=== PATIENT | female | born 1935 | race African-American/Black ===

== ENCOUNTER 2018-07-15 15:31 | Inpatient (IN) | payer MEDICARE, MEDICAID ==
[~2018-07-15] VITALS: Ht 162.6 cm; Wt 87.3 kg
[~2018-07-15 15:31] MED LIST: AMLO10TA8 PO; AMOX1TAB10 PO; ASPI-630 PO; CARV25TA2 PO; INSU100I13 SQ; LOSA-73 PO; METF10007 PO; METF500T16 PO; MULT-658 PO; POTA10TA12 PO; PRAV40TA2 PO; VALS1TAB22 PO
[2018-07-15] MEDS ORDERED: DEXTROSE 50% 25 GM / 50ML DISP.SYRIN. IV PRN (16:30)
[2018-07-15] MEDS ORDERED: ACETAMINOPHEN 325 MG TABLET. PO PRN ×2 (16:30)
[2018-07-15] MEDS ORDERED: HYDR12.575 PO (16:53)
[2018-07-15] MEDS ORDERED: INSU100V13 SQ (16:53)
[2018-07-15 17:00] VITALS: BP 169/81
[2018-07-15] MEDS: IV 1/2 NORMAL SALINE 1,000 ML IV SCH (17:30)
[2018-07-15] MEDS: INSULIN LISPRO 300 UNITS/3 ML INSULN.PEN. SQ SCH (17:36)
[2018-07-15] MEDS: CARVEDILOL 12.5 MG TABLET. PO SCH (17:37)
[2018-07-15 17:56] LABS: BASO % 0 % (0-3); EOS % 0 % (0-3); HEMATOCRIT 37.2 % (36.0-47.0); HEMOGLOBIN 12.4 g/dL (12.0-15.5); LYMPH % 10 % (24-48); MEAN CORPUSCULAR HEMOGLOBIN 32 pg (25-35); MEAN CORPUSCULAR HGB CONC 33 g/dL (31-37); MEAN CORPUSCULAR VOLUME 96 fL (79-100); MONO # 1.1 x10^3/uL (0.0-1.1); MONO % 11 % (0-9); NEUT # 7.8 x10^3uL (1.8-7.7); NEUT % 78 % (31-73); PLATELET COUNT 190 x10^3/uL (140-400); RED BLOOD COUNT 3.87 x10^6/uL (3.50-5.40)
[2018-07-15] MEDS: MAG HYDROX/ALUMINUM HYD/SIMETH 30 ML ORAL.SUSP PO PRN ×2 (18:02→20:40)
[2018-07-15 18:11] LABS: ALBUMIN 3.7 g/dL (3.4-5.0); ALBUMIN/GLOBULIN RATIO 0.9 (1.0-1.7); CALCIUM 9.8 mg/dL (8.5-10.1); CREATININE 1.5 mg/dL (0.6-1.0); GFR 39.9; MAGNESIUM 2.5 mg/dL (1.8-2.4); POTASSIUM 4.7 mmol/L (3.5-5.1); TOTAL BILIRUBIN 0.8 mg/dL (0.2-1.0); TOTAL PROTEIN 7.8 g/dL (6.4-8.2)
[2018-07-15] MEDS: ONDANSETRON PF 4 MG/2 ML VIAL. IV PRN (18:41)
[2018-07-15 19:00] VITALS: BP 167/78
[2018-07-15] MEDS: IV NORMAL SALINE 1000ML BAG 1,000 ML IV SCH (21:45)
[2018-07-15] MEDS: SUCRALFATE 1 GM TABLET. PO SCH (21:45)
--- NOTE | 2018-07-15 22:37 | EKG ---
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
[2018-07-15 23:00] VITALS: BP 159/75
--- NOTE | 2018-07-15 23:33 | NUR ---
Discussed with ICU nurse abnormal rhythm strip with some ST elevation. ECG ordered with possible abnormal results, Dr Wyatt was notified of results. 2L of oxygen place by RT.
[2018-07-16 03:00] VITALS: BP 148/73
[2018-07-16 06:50] VITALS: BP 135/71
[2018-07-16] MEDS ORDERED: PANTOPRAZOLE 40 MG TABLET.DR. PO SCH (07:30)
--- NOTE | 2018-07-16 07:40 | RAD ---
Chest, 2 views, 07/15/2018: HISTORY: Chest pain Comparison is made to a study from 06/17/2017. The heart size is within normal limits. There is calcific plaquing and tortuosity of the thoracic aorta. No pulmonary infiltrate is seen. There is no evidence of pleural fluid. Mild scattered degenerative changes are present in the spine. IMPRESSION: 1. Aortic atherosclerosis. 2. No acute cardiopulmonary abnormality is detected. Electronically signed by: Doug Melton MD (07/16/2018 7:37 AM) [facility]
[2018-07-16] MEDS: amLODIPine BESYLATE 5 MG TABLET PO SCH (08:51)
[2018-07-16] MEDS: ASPIRIN ENTERIC COATED 81 MG TABLET.DR. PO SCH (08:51)
[2018-07-16] MEDS: CARVEDILOL 12.5 MG TABLET. PO SCH ×2 (08:51→17:00)
[2018-07-16] MEDS: SUCRALFATE 1 GM TABLET. PO SCH ×4 (08:51→21:00)
[2018-07-16] MEDS: INSULIN LISPRO 300 UNITS/3 ML INSULN.PEN. SQ SCH ×3 (08:58→17:00)
[2018-07-16] MEDS: IV 1/2 NORMAL SALINE 1,000 ML IV SCH (08:59)
[2018-07-16 09:11] LABS: BASO % 0 % (0-3); EOS % 0 % (0-3); HEMATOCRIT 35.7 % (36.0-47.0); LYMPH # 0.9 x10^3/uL (1.0-4.8); LYMPH % 10 % (24-48); MEAN CORPUSCULAR HEMOGLOBIN 32 pg (25-35); MEAN CORPUSCULAR HGB CONC 34 g/dL (31-37); MEAN CORPUSCULAR VOLUME 95 fL (79-100); MONO # 1.4 x10^3/uL (0.0-1.1); MONO % 15 % (0-9); NEUT # 6.6 x10^3uL (1.8-7.7); NEUT % 74 % (31-73); PLATELET COUNT 187 x10^3/uL (140-400); RED BLOOD COUNT 3.74 x10^6/uL (3.50-5.40); RED CELL DISTRIBUTION WIDTH 13.1 % (11.5-14.5); WHITE BLOOD COUNT 8.9 x10^3/uL (4.0-11.0)
[2018-07-16 09:43] LABS: CALCIUM 9.2 mg/dL (8.5-10.1); CREATININE 1.6 mg/dL (0.6-1.0); GFR 37.1; POTASSIUM 4.1 mmol/L (3.5-5.1)
[2018-07-16 09:53] LABS: CHOLESTEROL/HDL RATIO 1.7; MAGNESIUM 2.7 mg/dL (1.8-2.4)
--- NOTE | 2018-07-16 10:27 | PDOC ---
Provider Note Provider Note history and physical dictated # [id number] DARIA MARTINEZ MD Jul 16, 2018 10:26
[2018-07-16] MEDS ORDERED: CONTRAST GIVEN. MC PRN (10:30)
[2018-07-16] MEDS ORDERED: IOHEXOL 240 MG/ML 50ML VIAL. PO ONE (10:30)
--- NOTE | 2018-07-16 10:43 | CARD ---
MR#: [id number] Date of Study: 07/16/2018 Ordering Physician: DARIA MARTINEZ, Referring Physician: DARIA MARTINEZ, Tech: Janice Meza APPROVED REPORT EXAM: Two-dimensional and M-mode echocardiogram with Doppler and color Doppler. Other Information Quality : AverageHR: 75bpm Technically limited study due to body habitus. INDICATION Chest Pain RISK FACTORS Hypertension Diabetes 2D DIMENSIONS RVDd2.9 (2.9-3.5cm)Left Atrium(2D)3.1 (1.6-4.0cm) IVSd1.2 (0.7-1.1cm)Aortic Root(2D)3.0 (2.0-3.7cm) LVDd4.3 (3.9-5.9cm)LVOT Diameter2.2 (1.8-2.4cm) PWd1.0 (0.7-1.1cm)LVDs2.1 (2.5-4.0cm) FS (%) 50.6 %SV68.0 ml LVEF(%)82.1 (>50%) Aortic Valve AoV Peak Ramon.139.3cm/sAoV VTI22.9cm AO Peak GR.7.8mmHgLVOT Peak Ramon.113.8cm/s LVOT VTI 18.26cmAO Mean GR.4mmHg GARCIA (VMAX)2.49xt8ROG (VTI)2.89cm2 Mitral Valve MV E Ponmlnvp24.4cm/sMV DECEL ZYWI425du MV A Ndvfuxjr24.4cm/sMV NLH174aq E/A Ratio0.5MVA (PHT)1.79cm2 TDI E/Lateral E'6.4E/Medial E'8.8 Pulmonary Valve PV Peak Ayctzjtj639.5cm/sPV Peak Grad.5mmHg Tricuspid Valve TR P. Ivuooewe399xg/sRAP SDFYZHFR7znSx TR Peak Gr.04vhBqWFWZ46cdJa Pulmonary Vein S1 Duanxbps41.8cm/sD2 Almdazcs59.6cm/s PVa [id number] LEFT VENTRICLE The left ventricle is normal size. There is borderline concentric left ventricular hypertrophy. The l eft ventricular systolic function is normal and the ejection fraction is within normal range. The Eje ction Fraction is 50-55%. Septal motion suggestive of prior cABG. Otherwise, grossly normal wall chapis on. Transmitral Doppler flow pattern is Grade I-abnormal relaxation pattern. RIGHT VENTRICLE The right ventricle is normal size. There is normal right ventricular wall thickness. The right ventr icular systolic function is normal. ATRIA The left atrium size is normal. The right atrium size is normal. The interatrial septum is intact wit h no evidence for an atrial septal defect or patent foramen ovale as noted on 2-D or Doppler imaging. AORTIC VALVE The aortic valve is normal in structure and function. Doppler and Color Flow revealed trace aortic re gurgitation. There is no significant aortic valvular stenosis. MITRAL VALVE The mitral valve is normal in structure and function. There is no evidence of mitral valve prolapse. There is no mitral valve stenosis. Doppler and Color Flow revealed no mitral valve regurgitation note d. TRICUSPID VALVE The tricuspid valve is normal in structure and function. Doppler and Color Flow revealed mild to mode rate tricuspid regurgitation with an estimated PAP of 57 mmHg. Doppler and Color Flow revealed modera te pulmonary hypertension. There is no tricuspid valve prolapse or vegetation. There is no tricuspid valve stenosis. PULMONIC VALVE The pulmonic valve is not well visualized. Doppler and Color Flow revealed trace pulmonic valvular re gurgitation. GREAT VESSELS The aortic root is normal in size. The IVC is normal in size and collapses >50% with inspiration. PERICARDIAL EFFUSION There is no evidence of significant pericardial effusion. Critical Notification Critical Value: No <Conclusion> Septal motion suggestive of prior cABG. Otherwise, grossly normal wall motion. Doppler and Color Flow revealed mild to moderate tricuspid regurgitation with an estimated PAP of 57 mmHg. Doppler and Color Flow revealed moderate pulmonary hypertension. The left ventricular systolic function is normal and the ejection fraction is within normal range. Th e Ejection Fraction is 50-55%. Signed by : Jorge Coombs, Electronically Approved : 07/16/2018 10:42:49
--- NOTE | 2018-07-16 10:52 | NUR ---
Per pt's daughter request, SW met with pt and daughter and provided with AD form. Pt currently sleeping. Daughter will notify SW when pt is able to complete form. Pt lives at home with daughter and has been independent with ADL's. Daughter reports pt sometimes uses a cane at home. PT ordered and is pending. SW will continue to follow pt.
[2018-07-16 11:00] VITALS: BP 129/63
--- NOTE | 2018-07-16 11:31 | HP ---
ADMIT DATE: 07/16/2018 LOCATION: She is in room 538. HISTORY OF PRESENT ILLNESS: The patient is an 83-year-old -Citizen Of [place] female with history of diabetes mellitus type 2, hypertension and hyperlipidemia, who was admitted to [facility] from my office on 07/15/2018 with the onset of a 4-day history of nausea and vomiting over the weekend. On Saturday, she vomited about 4 times and 3 times on Saturday. Her intake of food and fluid was quite poor. She was very weak and had some shortness of breath with ambulation. She had some retrosternal chest pain, which she attributed to vomiting, and she was drinking some water and Gatorade the day prior to admission, had some tightness in the chest and fatigue, as mentioned and was subsequently admitted to the hospital for further evaluation. Her EKG did not show any acute change. She was subsequently admitted to the hospital for further evaluation and treatment. ALLERGIES AND INTOLERANCES: None. MEDICATIONS PRIOR TO ADMISSION: Include amlodipine 10 mg every day, aspirin 81 mg every day, carvedilol 25 mg b.i.d., hydrochlorothiazide 12.5 mg every day, Levemir insulin 6 units at bedtime, losartan 100 mg every day, metformin 500 mg b.i.d. and pravastatin 40 mg every day. PAST MEDICAL HISTORY: Past history is significant for diabetes mellitus type 2, on insulin; hypertension; hyperlipidemia and osteoarthritis. She has had a cholecystectomy in the past. FAMILY HISTORY: Brother had diabetes mellitus and hypertension. Father had chronic kidney disease. Mother had diabetes mellitus, hypertension and hyperlipidemia. Sister had coronary artery disease. SOCIAL HISTORY: She does not drink alcohol nor does she smoke cigarettes. She uses a cane. REVIEW OF SYSTEMS: GENERAL: She denies any fever, chills or sweats in the last few days. CARDIOVASCULAR: She had some chest discomfort, as mentioned and some dyspnea on exertion. GASTROINTESTINAL: She had the nausea, vomiting and poor appetite. No diarrhea. ENDOCRINE: She has diabetes mellitus. SKIN: No rashes. NEUROLOGIC: Generalized weakness. The rest of systems reviewed are negative, except as stated in the history of present illness. PHYSICAL EXAMINATION: VITAL SIGNS: Temperature is 98.4 degrees, apical pulse regular at 73, respiratory rate 16, blood pressure 135/71 and oxygen saturation 95% on room air. HEENT: Eyes, gaze is conjugate. Extraocular muscles are intact. Mouth, tongue is midline. NECK: There is no cervical lymphadenopathy or thyroid enlargement. HEART: Reveals an S1, S2. There is no S3 or murmur. LUNGS: Clear. ABDOMEN: Soft, nontender, with no hepatosplenomegaly, masses or tenderness. EXTREMITIES: Lower extremities with trace edema. SKIN: No rashes. NEUROLOGICAL EXAMINATION: Shows she is coherent, with no focal weakness in the arms or legs. LABORATORY DATA: White count 10, hemoglobin 12.4, platelet count 190,000, polys 78 and lymphocytes 10. Today, the white count is 8.9, hemoglobin 12 with a platelet count of 187,000, polys 74 and lymphocytes 10. Yesterday the serum sodium was 131, potassium was 4.7, chloride 92, total CO2 was 30 with a BUN of 54, creatinine 1.5 and blood sugar 279. Magnesium 2.5. Liver function tests normal. Troponin level less than 0.017 and her albumin was 3.7. Today, the serum sodium is 133, potassium 4.1, chloride 92, total CO2 of 31 with BUN 61, creatinine 1.6 and blood sugar 249 and her magnesium was 2.7. CPK of 120. Troponin level was less than 0.017. Total cholesterol 130 with an LDL of 139 and HDL of 76. TSH was normal. She had a chest x-ray done, which showed no acute abnormality. An electrocardiogram actually was done today; the report is pending. The electrocardiogram showed normal sinus rhythm. She did have a Q-wave in lead 3, nonspecific ST-T wave changes. She had a high J-point at lead V6. ASSESSMENT: 1. Acute kidney injury secondary to dehydration. She had decreased fluid intake and was on hydrochlorothiazide, which was discontinued. 2. Nausea and vomiting. 3. Hypertension. 4. Diabetes mellitus type 2 with hyperglycemia. 5. Gastroesophageal reflux disease. 6. Hyperlipidemia. 7. Poor appetite and fatigue. 8. Chest pain. PLAN: Plan at this time is to consult Dr. Mccarty for Nephrology, Dr. Coombs for Cardiology and Dr. Valadez for GI. We will continue with the IV normal saline. Zofran has been ordered p.r.n. We will continue p.r.n. Mylanta, Carafate on schedule and Protonix on schedule. We got a CAT scan of the chest, abdomen and pelvis, all of this done without IV contrast. We will rule out hydronephrosis with that too and repeat the CBC and BMP tomorrow. Continue with IV fluids. Discontinue the hydrochlorothiazide and losartan and continue the carvedilol and amlodipine and will have low-dose Humalog insulin sliding scale. She has received physical therapy and SCDs for deep vein thrombosis prophylaxis. Echocardiogram has been ordered and is pending. DARIA MARTINEZ MD DR: GABRIELA/tosha JOB#: [id number] / [id number]
--- NOTE | 2018-07-16 11:32 | PDOC2 ---
GI CONSULT Reason For Consult: Nausea and vomiting and poor appetite HPI: HPI: Pleasant 83 y/o female - daughter Marimar provides much of history because pt's throat is sore. Ill since Saturday morning w/ vomiting - pt thinks possibly precipitated by eating vanilla ice cream the night before. Unable to tolerate PO Saturday or Saturday. Saturday was able to eat broth, crackers, green beans, Gatorade, and jello. Saturday still unable to eat normally (though did have some Glucerna) and daughter noticed she was very weak - she used her cane which she normally doesn't like to do. Went to Dr. Wyatt's office and was directly admitted. Vomited again last night after eating clear liquid tray and taking Mylanta - daughter notes that emesis included green beans from the day before. Her biggest concern currently is burning chest discomfort like acid reflux. Daughter also mentions really bad smelling burps. Has h/o occasional reflux (much less severe than current symptoms) - treated at home w/ sips of soda. No dysphagia. Typically no issues w/ n/v. Denies abd pain. No diarrhea or constipation - last stooled on Saturday. No hematemesis, hematochezia, or melena. Prior to this normal appetite and stable weight. Does not recall previous EGD. Thinks had a normal colonoscopy 5-10 years ago at [facility] (but not sure). S/p cholecystectomy for stones. No liver, pancreas, or PUD history. Took NSAIDs sometimes for arthritis pain in the past but was advised to stop due to worsening renal function. Now only takes Tylenol PRN. Says glucose normally runs around 90. Started on pantoprazole and Carafate here and plans for CT chest/abd/pelv. PMH: PMH: HTN, pneumonia, bronchitis, HLD, DM, CVA, CKD, OA, GERD, sinusitis cholecystectomy, cataract removal FH: Family History: CVA, DM, Hyperlipidemia, Other (daughter - GERD) Social History: Smoke: No ALCOHOL: none Drugs: None ROS: GEN: Denies fevers, chills, sweats HEENT: Denies blurred vision, sore throat CV: +burning chest pain RESP: Denies shortness of air, cough GI: Per HPI : Denies hematuria, dysuria ENDO: Denies weight changes NEURO: Denies confusion, dizziness MSK: +weakness SKIN: Denies jaundice, pruritus Vitals: Vitals: Vital Signs Date Time Temp Pulse Resp B/P (MAP) Pulse Ox O2 Delivery O2 Flow Rate FiO2 07/16/18 11:00 98.4 78 18 129/63 (85) 94 Room Air 98.4 Labs: Labs: Laboratory Tests Test 07/15/18 16:13 07/15/18 17:45 07/16/18 06:02 07/16/18 08:33 Glucose (Fingerstick) 251 mg/dL (70-99) 235 mg/dL (70-99) White Blood Count 10.0 x10^3/uL (4.0-11.0) 8.9 x10^3/uL (4.0-11.0) Red Blood Count 3.87 x10^6/uL (3.50-5.40) 3.74 x10^6/uL (3.50-5.40) Hemoglobin 12.4 g/dL (12.0-15.5) 12.0 g/dL (12.0-15.5) Hematocrit 37.2 % (36.0-47.0) 35.7 % (36.0-47.0) Mean Corpuscular Volume 96 fL (79-100) 95 fL (79-100) Mean Corpuscular Hemoglobin 32 pg (25-35) 32 pg (25-35) Mean Corpuscular Hemoglobin Concent 33 g/dL (31-37) 34 g/dL (31-37) Red Cell Distribution Width 13.0 % (11.5-14.5) 13.1 % (11.5-14.5) Platelet Count 190 x10^3/uL (140-400) 187 x10^3/uL (140-400) Neutrophils (%) (Auto) 78 % (31-73) 74 % (31-73) Lymphocytes (%) (Auto) 10 % (24-48) 10 % (24-48) Monocytes (%) (Auto) 11 % (0-9) 15 % (0-9) Eosinophils (%) (Auto) 0 % (0-3) 0 % (0-3) Basophils (%) (Auto) 0 % (0-3) 0 % (0-3) Neutrophils # (Auto) 7.8 x10^3uL (1.8-7.7) 6.6 x10^3uL (1.8-7.7) Lymphocytes # (Auto) 1.0 x10^3/uL (1.0-4.8) 0.9 x10^3/uL (1.0-4.8) Monocytes # (Auto) 1.1 x10^3/uL (0.0-1.1) 1.4 x10^3/uL (0.0-1.1) Eosinophils # (Auto) 0.0 x10^3/uL (0.0-0.7) 0.0 x10^3/uL (0.0-0.7) Basophils # (Auto) 0.0 x10^3/uL (0.0-0.2) 0.0 x10^3/uL (0.0-0.2) Sodium Level 131 mmol/L (136-145) 133 mmol/L (136-145) Potassium Level 4.7 mmol/L (3.5-5.1) 4.1 mmol/L (3.5-5.1) Chloride Level 92 mmol/L (98-107) 92 mmol/L (98-107) Carbon Dioxide Level 30 mmol/L (21-32) 31 mmol/L (21-32) Anion Gap 9 (6-14) 10 (6-14) Blood Urea Nitrogen 54 mg/dL (7-20) 61 mg/dL (7-20) Creatinine 1.5 mg/dL (0.6-1.0) 1.6 mg/dL (0.6-1.0) Estimated GFR (Cockcroft-Gault) 39.9 37.1 BUN/Creatinine Ratio 36 (6-20) Glucose Level 279 mg/dL (70-99) 249 mg/dL (70-99) Calcium Level 9.8 mg/dL (8.5-10.1) 9.2 mg/dL (8.5-10.1) Magnesium Level 2.5 mg/dL (1.8-2.4) 2.7 mg/dL (1.8-2.4) Total Bilirubin 0.8 mg/dL (0.2-1.0) Aspartate Amino Transf (AST/SGOT) 22 U/L (15-37) Alanine Aminotransferase (ALT/SGPT) 13 U/L (14-59) Alkaline Phosphatase 56 U/L (46-116) Creatine Kinase 156 U/L (26-192) 120 U/L (26-192) Troponin I Quantitative < 0.017 ng/mL (0.000-0.055) < 0.017 ng/mL (0.000-0.055) Total Protein 7.8 g/dL (6.4-8.2) Albumin 3.7 g/dL (3.4-5.0) Albumin/Globulin Ratio 0.9 (1.0-1.7) Thyroid Stimulating Hormone (TSH) 1.228 uIU/mL (0.358-3.74) Triglycerides Level 74 mg/dL (0-150) Cholesterol Level 130 mg/dL (0-200) LDL Cholesterol, Calculated 39 mg/dL (0-100) VLDL Cholesterol, Calculated 15 mg/dL (0-40) Non-HDL Cholesterol Calculated 54 mg/dL (0-129) HDL Cholesterol 76 mg/dL (40-60) Cholesterol/HDL Ratio 1.7 Test 07/16/18 10:54 Glucose (Fingerstick) 204 mg/dL (70-99) Allergies: Coded Allergies: No Known Drug Allergies (Unverified , 06/17/17) Medications: Current Medications Medications (Trade) Dose Ordered Sig/Omid Route PRN Reason Start Time Stop Time Status Last Admin Dose Admin Insulin Human Lispro (HumaLOG) 0-5 UNITS TIDWMEALS SQ 07/15/18 17:30 07/16/18 08:58 Ondansetron HCl (Zofran) 4 mg PRN Q6HRS PRN IV NAUSEA/VOMITING 07/15/18 16:30 07/15/18 18:41 Aspirin (Ecotrin) 81 mg DAILYWBKFT PO 07/16/18 08:00 07/16/18 08:51 Carvedilol (Coreg) 25 mg BIDWMEALS PO 07/15/18 17:30 07/16/18 08:51 Amlodipine Besylate (Norvasc) 5 mg DAILY PO 07/16/18 09:00 07/16/18 08:51 Al Hydroxide/Mg Hydroxide (Mylanta Plus Xs) 30 ml PRN Q2HR PRN PO HEARTBURN / GAS 07/15/18 16:30 07/15/18 20:40 Pantoprazole Sodium (Protonix) 40 mg DAILYAC PO 07/16/18 07:30 07/16/18 08:51 Sucralfate (Carafate) 1 gm TIDWMEALHC PO 07/15/18 22:00 07/16/18 08:51 Sodium Chloride 1,000 ml @ 75 mls/hr [id number] IV 07/15/18 21:45 07/15/18 21:45 Iohexol (Omnipaque 240 Mg/ml) 30 ml 1X ONCE PO 07/16/18 10:30 07/16/18 10:31 DC 07/16/18 10:30 Imaging: Imaging: CXR IMPRESSION: 1. Aortic atherosclerosis. 2. No acute cardiopulmonary abnormality is detected. Echocardiogram <Conclusion> Septal motion suggestive of prior cABG. Otherwise, grossly normal wall motion. Doppler and Color Flow revealed mild to moderate tricuspid regurgitation with an estimated PAP of 57 mmHg. Doppler and Color Flow revealed moderate pulmonary hypertension. The left ventricular systolic function is normal and the ejection fraction is within normal range. The Ejection Fraction is 50-55%. PE: GEN: NAD HEENT: Atraumatic, PERRL LUNGS: CTAB HEART: RRR ABD: NABS, S/ND/NT EXTREMITY: No edema SKIN: No rashes, no jaundice NEURO/PSYCH: A & O 3 A/P: A/P: N/v, atypical chest pain/reflux MOI/CKD, DM CRC screen - reports normal colonoscopy in the past S/p cholecystectomy -- ?infectious w/ underlying GERD - element of gastroparesis also possible Agree w/ PPI. Await CT. DAMON EATON Jul 16, 2018 11:31
[2018-07-16] MEDS: MAG HYDROX/ALUMINUM HYD/SIMETH 30 ML ORAL.SUSP PO PRN (11:42)
[2018-07-16] MEDS: ONDANSETRON PF 4 MG/2 ML VIAL. IV PRN (11:43)
[2018-07-16] MEDS: IV NORMAL SALINE 1000ML BAG 1,000 ML IV SCH (11:45)
--- NOTE | 2018-07-16 12:01 | PDOC2 ---
BRODERICK RENDON [employer] 07/16/18 1201: CARDIAC CONSULT DATE OF CONSULT Date of Consult DATE: 07/16/18 TIME: 11:53 REASON FOR CONSULT Reason for Consult: Chest pain REFERRING PHYSICIAN Referring Physician: Dr. Wyatt SOURCE Source: Chart review, Patient HISTORY OF PRESENT ILLNESS HISTORY OF PRESENT ILLNESS This is an 83 yo female who presented as a direct admit from Dr. Wyatt's office secondary to a four-day history of nausea and vomiting. Was finally able to keep food down on Saturday afternoon, but continue to not feel well overall with ongoing belching. Has been constipated since Saturday. Daughter reports that anytime she eats or drinks anything, she will have tightness in her central chest follow by belching. No associated SOA, palpitations, dizziness, diaphoresis, syncope, orthopnea, or LE edema. Due to chest tightness, cardiology consult was obtained. Had additional emesis last night follow clear liquid dinner. CTR abdomen/pelvis notable for partial distal small bowel obstruction and diverticulosis. PAST MEDICAL HISTORY Past Medical History Cardiovascular: HTN, Hyperlipidemia Pulmonary: no pertinent hx CENTRAL NERVOUS SYSTEM: Other (No pertinent history) GI: No pertinent hx Heme/Onc: No pertinent hx Hepatobiliary: No pertinent hx, Cholelithiasis Psych: No pertinent hx Musculoskeletal: Osteoarthritis Rheumatologic: No pertinent hx Infectious disease: No pertinent hx ENT: No pertinent hx Renal/: No pertinent hx Endocrine: Diabetes (2) Dermatology: No pertinent hx PAST SURGICAL HISTORY Past Surgical History Cholecystectomy FAMILY HISTORY Family History: Diabetes, Heart Disease, High Cholestrol, Stroke SOCIAL HISTORY Social History Smoke: No ALCOHOL: none Drugs: None Lives: with Family (dtr) CURRENT MEDICATIONS CURRENT MEDICATIONS Current Medications Medications (Trade) Dose Ordered Sig/Omid Route PRN Reason Start Time Stop Time Status Last Admin Dose Admin Insulin Human Lispro (HumaLOG) 0-5 UNITS TIDWMEALS SQ 07/15/18 17:30 07/16/18 08:58 Ondansetron HCl (Zofran) 4 mg PRN Q6HRS PRN IV NAUSEA/VOMITING 07/15/18 16:30 07/16/18 11:43 Aspirin (Ecotrin) 81 mg DAILYWBKFT PO 07/16/18 08:00 07/16/18 08:51 Carvedilol (Coreg) 25 mg BIDWMEALS PO 07/15/18 17:30 07/16/18 08:51 Amlodipine Besylate (Norvasc) 5 mg DAILY PO 07/16/18 09:00 07/16/18 08:51 Al Hydroxide/Mg Hydroxide (Mylanta Plus Xs) 30 ml PRN Q2HR PRN PO HEARTBURN / GAS 07/15/18 16:30 07/16/18 11:42 Pantoprazole Sodium (Protonix) 40 mg DAILYAC PO 07/16/18 07:30 07/16/18 08:51 Sucralfate (Carafate) 1 gm TIDWMEALHC PO 07/15/18 22:00 07/16/18 08:51 Sodium Chloride 1,000 ml @ 75 mls/hr [id number] IV 07/15/18 21:45 07/16/18 11:45 Iohexol (Omnipaque 240 Mg/ml) 30 ml 1X ONCE PO 07/16/18 10:30 07/16/18 10:31 DC 07/16/18 10:30 ALLERGIES ALLERGIES: Coded Allergies: No Known Drug Allergies (Unverified , 06/17/17) ROS Review of System 14 point ROS conducted with pertinent positives noted above in HPI. PHYSICAL EXAM PHYSICAL EXAM General: Alert, Oriented X3, Cooperative, No acute distress HEENT: Atraumatic, Mucous membr. moist/pink Lungs: Clear to auscultation, Normal air movement Heart: Regular rate (SR, no rhytym ectopies overnight), Normal S1, Normal S2, Other (2/6 systolic murmur to PASCUAL border) Abdomen: Soft, No tenderness Skin: No breakdown, Other (right facial contusion) Neuro: Normal speech, Sensation intact Psych/Mental Status: Mental status NL, Mood NL MUSCULOSKELETAL: Osteoarthritic changes both hands VITALS VITALS Vital Signs Date Time Temp Pulse Resp B/P (MAP) Pulse Ox O2 Delivery O2 Flow Rate FiO2 07/16/18 11:00 98.4 78 18 129/63 (85) 94 Room Air 98.4 LABS Lab: Laboratory Tests Test 07/15/18 16:13 07/15/18 17:45 07/16/18 06:02 07/16/18 08:33 Glucose (Fingerstick) 251 mg/dL (70-99) 235 mg/dL (70-99) White Blood Count 10.0 x10^3/uL (4.0-11.0) 8.9 x10^3/uL (4.0-11.0) Red Blood Count 3.87 x10^6/uL (3.50-5.40) 3.74 x10^6/uL (3.50-5.40) Hemoglobin 12.4 g/dL (12.0-15.5) 12.0 g/dL (12.0-15.5) Hematocrit 37.2 % (36.0-47.0) 35.7 % (36.0-47.0) Mean Corpuscular Volume 96 fL (79-100) 95 fL (79-100) Mean Corpuscular Hemoglobin 32 pg (25-35) 32 pg (25-35) Mean Corpuscular Hemoglobin Concent 33 g/dL (31-37) 34 g/dL (31-37) Red Cell Distribution Width 13.0 % (11.5-14.5) 13.1 % (11.5-14.5) Platelet Count 190 x10^3/uL (140-400) 187 x10^3/uL (140-400) Neutrophils (%) (Auto) 78 % (31-73) 74 % (31-73) Lymphocytes (%) (Auto) 10 % (24-48) 10 % (24-48) Monocytes (%) (Auto) 11 % (0-9) 15 % (0-9) Eosinophils (%) (Auto) 0 % (0-3) 0 % (0-3) Basophils (%) (Auto) 0 % (0-3) 0 % (0-3) Neutrophils # (Auto) 7.8 x10^3uL (1.8-7.7) 6.6 x10^3uL (1.8-7.7) Lymphocytes # (Auto) 1.0 x10^3/uL (1.0-4.8) 0.9 x10^3/uL (1.0-4.8) Monocytes # (Auto) 1.1 x10^3/uL (0.0-1.1) 1.4 x10^3/uL (0.0-1.1) Eosinophils # (Auto) 0.0 x10^3/uL (0.0-0.7) 0.0 x10^3/uL (0.0-0.7) Basophils # (Auto) 0.0 x10^3/uL (0.0-0.2) 0.0 x10^3/uL (0.0-0.2) Sodium Level 131 mmol/L (136-145) 133 mmol/L (136-145) Potassium Level 4.7 mmol/L (3.5-5.1) 4.1 mmol/L (3.5-5.1) Chloride Level 92 mmol/L (98-107) 92 mmol/L (98-107) Carbon Dioxide Level 30 mmol/L (21-32) 31 mmol/L (21-32) Anion Gap 9 (6-14) 10 (6-14) Blood Urea Nitrogen 54 mg/dL (7-20) 61 mg/dL (7-20) Creatinine 1.5 mg/dL (0.6-1.0) 1.6 mg/dL (0.6-1.0) Estimated GFR (Cockcroft-Gault) 39.9 37.1 BUN/Creatinine Ratio 36 (6-20) Glucose Level 279 mg/dL (70-99) 249 mg/dL (70-99) Calcium Level 9.8 mg/dL (8.5-10.1) 9.2 mg/dL (8.5-10.1) Magnesium Level 2.5 mg/dL (1.8-2.4) 2.7 mg/dL (1.8-2.4) Total Bilirubin 0.8 mg/dL (0.2-1.0) Aspartate Amino Transf (AST/SGOT) 22 U/L (15-37) Alanine Aminotransferase (ALT/SGPT) 13 U/L (14-59) Alkaline Phosphatase 56 U/L (46-116) Creatine Kinase 156 U/L (26-192) 120 U/L (26-192) Troponin I Quantitative < 0.017 ng/mL (0.000-0.055) < 0.017 ng/mL (0.000-0.055) Total Protein 7.8 g/dL (6.4-8.2) Albumin 3.7 g/dL (3.4-5.0) Albumin/Globulin Ratio 0.9 (1.0-1.7) Thyroid Stimulating Hormone (TSH) 1.228 uIU/mL (0.358-3.74) Triglycerides Level 74 mg/dL (0-150) Cholesterol Level 130 mg/dL (0-200) LDL Cholesterol, Calculated 39 mg/dL (0-100) VLDL Cholesterol, Calculated 15 mg/dL (0-40) Non-HDL Cholesterol Calculated 54 mg/dL (0-129) HDL Cholesterol 76 mg/dL (40-60) Cholesterol/HDL Ratio 1.7 Test 07/16/18 10:54 Glucose (Fingerstick) 204 mg/dL (70-99) ECHOCARDIOGRAM ECHOCARDIOGRAM <Conclusion> The left ventricle is normal size. Left ventricular systolic function is normal. The left ventricle ejection fraction is 60-65%. There is mild septal hypertrophy. There is no significant aortic valvular stenosis. Doppler and Color Flow revealed no significant aortic regurgitation. Doppler and Color-flow revealed trace to mild mitral regurgitation. Doppler and Color Flow revealed mild tricuspid regurgitation. The PASP is 47 mmHg. DATE: 06/18/17 1648 ASSESSMENT/PLAN ASSESSMENT/PLAN 1. Persistent nausea/vomiting. CT notable for partial small bowel obstruction 2. Chest pain, atypical; trop negative x2- AMI ruled out. Most probably GI in etiology 3. MOI 4. CAD; coronary artery calcifications noted on CT 5. Hypertension; controlled 6. Hyperlipidemia; lipids on goal 7. Diabetes, II Recommendations IVFs Obtain echo to assess LV systolic function Continue BB, ASA Supportive care Follow GI recs LAUREEN COLMENARES MD 07/16/18 1806: CARDIAC CONSULT ASSESSMENT/PLAN ASSESSMENT/PLAN Pt. seen and examined. 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 EKG unremarkable. Echo with moderate pulm HTN Supportive care. Consider outpt ischemic eval after acute GI issues resolved. Thanks BRODERICK RENDON APRN Jul 16, 2018 12:01 LAUREEN COLMENARES MD Jul 16, 2018 18:06
--- NOTE | 2018-07-16 12:55 | RAD ---
CT of the chest, abdomen and pelvis without contrast, 07/16/2018: HISTORY: Chest pain, weight loss Multidetector CT imaging was performed without IV contrast as requested. Oral contrast material was given for GI tract opacification. There is moderate calcific plaquing of the thoracic aorta without evidence of aneurysm. Scattered coronary artery calcifications are present. The heart is at the upper limits of normal in size. No mediastinal adenopathy is seen. The esophagus is mildly dilated and contains residual oral contrast material. This is likely related to gastric distention. No pulmonary mass or significant consolidation is seen. There is only minimal streaky atelectasis or scarring in the lung bases. There is a trace amount of right-sided pleural fluid. The gallbladder is surgically absent. The unopacified liver shows no abnormality. No pancreatic abnormality is seen. The spleen is of normal size. There is mild bilateral renal cortical scarring. A small parenchymal calcification is noted in the left kidney. The renal collecting systems are not dilated. No adrenal abnormality is detected. Aortoiliac calcific plaquing is present without evidence of aneurysm. No abdominal or pelvic adenopathy is evident. The uterus is is within normal limits in size. Colonic diverticulosis is present, most extensive in the sigmoid region. No paracolonic inflammatory process is seen. The colon is not dilated. The stomach is distended. There is mild distention of the duodenum as well as mid and distal small bowel loops. Loops of nondistended distal ileum are visible. The findings suggest partial distal small bowel obstruction. A precise transition zone is not identified, however, it probably lies in the pelvis. No free fluid or free air is evident in the abdomen or pelvis. Moderate scattered degenerative changes are present in the spine, most severe at L2-3 and L3-4. IMPRESSION: 1. Partial distal small bowel obstruction. 2. Moderate colonic diverticulosis. 3. Calcific plaquing of the aorta and coronary arteries. 4. Trace right pleural effusion. 5. Additional chronic findings as described above. PQRS Compliance Statement: One or more of the following individualized dose reduction techniques were utilized for this examination: 1. Automated exposure control 2. Adjustment of the mA and/or kV according to patient size 3. Use of iterative reconstruction technique Electronically signed by: Doug Melton MD (07/16/2018 12:52 PM) [facility]
[2018-07-16 14:41] VITALS: BP 132/60
--- NOTE | 2018-07-16 15:02 | PDOC2 ---
CONSULT Date of Consult Date of Consult DATE: 07/16/18 TIME: 14:56 Reason for Consult Reason for Consult: MOI History of Present Illness Reason for Visit: THIS IS AN 83 YR OLD WITH CKD STAGE 3 WITH CR IN THE 1.3 RANGE FROM LAST YEAR. SHE WENT TO DR MARTINEZ'S OFFICE AND WAS NOTED TO HAVE N/V AND ESSENTIALLY NO PO INTAKE SINCE SATURDAY. SHE ALSO C/O CHEST PRESSURE. SHE IS UNDERGOING CARDIOLOGY AND GI EVALUATION AT THIS TIME. NO REPORTED DIARRHEA AND SHE HAS BEEN FEELING POORLY AND WEAK. NO HX OF ANY OTHER HX. CKD DUE TO HTN AND DM II HX. HAS BEEN ON A THIAZIDE THAT SHE HAS BEEN TAKING Past Medical History Cardiovascular: HTN, Hyperlipidemia Pulmonary: Other CENTRAL NERVOUS SYSTEM: Other GI: No pertinent hx Heme/Onc: No pertinent hx Hepatobiliary: No pertinent hx, Cholelithiasis Psych: No pertinent hx Musculoskeletal: Osteoarthritis Rheumatologic: No pertinent hx Infectious disease: No pertinent hx Renal/: Chronic renal insuff Endocrine: Diabetes Past Surgical History Past Surgical History: Cholecystectomy Family History Family History: Diabetes, Heart Disease, High Cholestrol, Stroke Social History No ALCOHOL: none Drugs: None Lives: with Family Current Medications Current Medications Current Medications Sodium Chloride 1,000 ml @ 60 mls/hr [id number] IV ; Start 07/15/18 at 17:30; Stop 07/16/18 at 10:16; Status DC Insulin Human Lispro (HumaLOG) 0-5 UNITS TIDWMEALS SQ Last administered on 07/16at 12:20; Start 07/15/18 at 17:30 Dextrose (Dextrose 50%-Water Syringe) 12.5 gm PRN Q15MIN PRN IV SEE COMMENTS; Start 07/15/18 at 16:30 Ondansetron HCl (Zofran) 4 mg PRN Q6HRS PRN IV NAUSEA/VOMITING Last administered on 07/16/18at 11:43; Start 07/15/18 at 16:30 Acetaminophen (Tylenol) 325 mg PRN Q4HRS PRN PO MILD PAIN / TEMP; Start at 16:30 Acetaminophen (Tylenol) 650 mg PRN Q4HRS PRN PO MILD PAIN/TEMP, 2ND CHOICE; Start 07/15/18 at 16:30 Aspirin (Ecotrin) 81 mg DAILYWBKFT PO Last administered on 07/16/18 08:51; Start 07/16/18 at 08:00 Carvedilol (Coreg) 25 mg BIDWMEALS PO Last administered on 07/16/18 08:51; Start 07/15/18 at 17:30 Amlodipine Besylate (Norvasc) 5 mg DAILY PO Last administered on 07/16/18 08: 51; Start 07/16/18 at 09:00 Al Hydroxide/Mg Hydroxide (Mylanta Plus Xs) 30 ml PRN Q2HR PRN PO HEARTBURN / GAS Last administered on 07/16/18 11:42; Start 07/15/18 at 16:30 Pantoprazole Sodium (Protonix) 40 mg DAILYAC PO Last administered on 07/16/18 08:51; Start 07/16/18 at 07:30; Stop 07/16/18 at 13:18; Status DC Sucralfate (Carafate) 1 gm TIDWMEALHC PO Last administered on 07/16/18 12:17; Start 07/15/18 at 22:00 Sodium Chloride 1,000 ml @ 75 mls/hr [id number] IV Last administered on 11:45; Start 07/15/18 at 21:45 Iohexol (Omnipaque 240 Mg/ml) 30 ml 1X ONCE PO Last administered on 07/16/18 10:30; Start 07/16/18 at 10:30; Stop 07/16/18 at 10:31; Status DC Info (CONTRAST GIVEN -- Rx MONITORING) 1 each PRN DAILY PRN MC SEE COMMENTS; Start 07/16/18 at 10:30; Stop 07/18/18 at 10:29 Pantoprazole Sodium (PROTONIX VIAL for IV PUSH) 40 mg 1X ONCE IVP ; Start 07/17 at 07:30; Stop 07/17/18 at 07:30; Status DC Pantoprazole Sodium (PROTONIX VIAL for IV PUSH) 40 mg DAILYAC IVP ; Start at 07:30 Active Scripts Active Pravastatin Sodium 40 Mg Tablet 1 Tab PO QHS 30 Days Cozaar (Losartan Potassium) 50 Mg Tablet 100 Mg PO DAILY 30 Days Klor-Con 10 (Potassium Chloride) 10 Meq Tablet.er 10 Meq PO DAILYWBKFT 30 Days Reported Hydrochlorothiazide Capsule (Hydrochlorothiazide) 12.5 Mg Capsule 12.5 Mg PO DAILY Levemir (Insulin Detemir) 100 Unit/1 Ml Vial 6 Unit SQ HS Centrum Silver Tablet (Multivits-Min/Fa/Lycopene/Lut) 1 Each Tablet 1 Each PO DAILY Aspirin 81 Mg Tab.chew 1 Tab PO DAILY Metformin Hcl 500 Mg Tablet 500 Mg PO HS Metformin Hcl 1,000 Mg Tablet 1,000 Mg PO DAILYWBKFT Carvedilol 25 Mg Tablet 25 Mg PO BIDWMEALS Allergies Allergies: Coded Allergies: No Known Drug Allergies (Unverified , 06/17/17) ROS Review of System CONFUSED AND MOST HX FROM DAUGHTER AND CHART Physical Exam General: Alert, Cooperative, No acute distress HEENT: Atraumatic, PERRLA, EOMI, Other (DRY MUCOSA) Lungs: Clear to auscultation Heart: Normal S1, Normal S2, Other (MR) Abdomen: Normal bowel sounds, Soft, No tenderness Extremities: No clubbing, No cyanosis Skin: No rashes, No breakdown Neuro: Other (NO ASYMMETRY) Psych/Mental Status: Other (CONFUSED AFFECT) MUSCULOSKELETAL: No joint tenderness, No swelling, Other (DIFFUSE ATROPHY) Vitals VITALS Vital Signs Date Time Temp Pulse Resp B/P (MAP) Pulse Ox O2 Delivery O2 Flow Rate FiO2 07/16/18 14:41 98.2 75 18 132/60 (84) 95 Room Air 98.2 Labs Labs Laboratory Tests Test 07/15/18 16:13 07/15/18 17:45 07/16/18 06:02 07/16/18 08:33 Glucose (Fingerstick) 251 mg/dL (70-99) 235 mg/dL (70-99) White Blood Count 10.0 x10^3/uL (4.0-11.0) 8.9 x10^3/uL (4.0-11.0) Red Blood Count 3.87 x10^6/uL (3.50-5.40) 3.74 x10^6/uL (3.50-5.40) Hemoglobin 12.4 g/dL (12.0-15.5) 12.0 g/dL (12.0-15.5) Hematocrit 37.2 % (36.0-47.0) 35.7 % (36.0-47.0) Mean Corpuscular Volume 96 fL (79-100) 95 fL (79-100) Mean Corpuscular Hemoglobin 32 pg (25-35) 32 pg (25-35) Mean Corpuscular Hemoglobin Concent 33 g/dL (31-37) 34 g/dL (31-37) Red Cell Distribution Width 13.0 % (11.5-14.5) 13.1 % (11.5-14.5) Platelet Count 190 x10^3/uL (140-400) 187 x10^3/uL (140-400) Neutrophils (%) (Auto) 78 % (31-73) 74 % (31-73) Lymphocytes (%) (Auto) 10 % (24-48) 10 % (24-48) Monocytes (%) (Auto) 11 % (0-9) 15 % (0-9) Eosinophils (%) (Auto) 0 % (0-3) 0 % (0-3) Basophils (%) (Auto) 0 % (0-3) 0 % (0-3) Neutrophils # (Auto) 7.8 x10^3uL (1.8-7.7) 6.6 x10^3uL (1.8-7.7) Lymphocytes # (Auto) 1.0 x10^3/uL (1.0-4.8) 0.9 x10^3/uL (1.0-4.8) Monocytes # (Auto) 1.1 x10^3/uL (0.0-1.1) 1.4 x10^3/uL (0.0-1.1) Eosinophils # (Auto) 0.0 x10^3/uL (0.0-0.7) 0.0 x10^3/uL (0.0-0.7) Basophils # (Auto) 0.0 x10^3/uL (0.0-0.2) 0.0 x10^3/uL (0.0-0.2) Sodium Level 131 mmol/L (136-145) 133 mmol/L (136-145) Potassium Level 4.7 mmol/L (3.5-5.1) 4.1 mmol/L (3.5-5.1) Chloride Level 92 mmol/L (98-107) 92 mmol/L (98-107) Carbon Dioxide Level 30 mmol/L (21-32) 31 mmol/L (21-32) Anion Gap 9 (6-14) 10 (6-14) Blood Urea Nitrogen 54 mg/dL (7-20) 61 mg/dL (7-20) Creatinine 1.5 mg/dL (0.6-1.0) 1.6 mg/dL (0.6-1.0) Estimated GFR (Cockcroft-Gault) 39.9 37.1 BUN/Creatinine Ratio 36 (6-20) Glucose Level 279 mg/dL (70-99) 249 mg/dL (70-99) Calcium Level 9.8 mg/dL (8.5-10.1) 9.2 mg/dL (8.5-10.1) Magnesium Level 2.5 mg/dL (1.8-2.4) 2.7 mg/dL (1.8-2.4) Total Bilirubin 0.8 mg/dL (0.2-1.0) Aspartate Amino Transf (AST/SGOT) 22 U/L (15-37) Alanine Aminotransferase (ALT/SGPT) 13 U/L (14-59) Alkaline Phosphatase 56 U/L (46-116) Creatine Kinase 156 U/L (26-192) 120 U/L (26-192) Troponin I Quantitative < 0.017 ng/mL (0.000-0.055) < 0.017 ng/mL (0.000-0.055) Total Protein 7.8 g/dL (6.4-8.2) Albumin 3.7 g/dL (3.4-5.0) Albumin/Globulin Ratio 0.9 (1.0-1.7) Thyroid Stimulating Hormone (TSH) 1.228 uIU/mL (0.358-3.74) Triglycerides Level 74 mg/dL (0-150) Cholesterol Level 130 mg/dL (0-200) LDL Cholesterol, Calculated 39 mg/dL (0-100) VLDL Cholesterol, Calculated 15 mg/dL (0-40) Non-HDL Cholesterol Calculated 54 mg/dL (0-129) HDL Cholesterol 76 mg/dL (40-60) Cholesterol/HDL Ratio 1.7 Test 07/16/18 10:54 Glucose (Fingerstick) 204 mg/dL (70-99) Laboratory Tests Test 07/15/18 16:13 07/15/18 17:45 07/16/18 06:02 07/16/18 08:33 Glucose (Fingerstick) 251 mg/dL (70-99) 235 mg/dL (70-99) White Blood Count 10.0 x10^3/uL (4.0-11.0) 8.9 x10^3/uL (4.0-11.0) Red Blood Count 3.87 x10^6/uL (3.50-5.40) 3.74 x10^6/uL (3.50-5.40) Hemoglobin 12.4 g/dL (12.0-15.5) 12.0 g/dL (12.0-15.5) Hematocrit 37.2 % (36.0-47.0) 35.7 % (36.0-47.0) Mean Corpuscular Volume 96 fL (79-100) 95 fL (79-100) Mean Corpuscular Hemoglobin 32 pg (25-35) 32 pg (25-35) Mean Corpuscular Hemoglobin Concent 33 g/dL (31-37) 34 g/dL (31-37) Red Cell Distribution Width 13.0 % (11.5-14.5) 13.1 % (11.5-14.5) Platelet Count 190 x10^3/uL (140-400) 187 x10^3/uL (140-400) Neutrophils (%) (Auto) 78 % (31-73) 74 % (31-73) Lymphocytes (%) (Auto) 10 % (24-48) 10 % (24-48) Monocytes (%) (Auto) 11 % (0-9) 15 % (0-9) Eosinophils (%) (Auto) 0 % (0-3) 0 % (0-3) Basophils (%) (Auto) 0 % (0-3) 0 % (0-3) Neutrophils # (Auto) 7.8 x10^3uL (1.8-7.7) 6.6 x10^3uL (1.8-7.7) Lymphocytes # (Auto) 1.0 x10^3/uL (1.0-4.8) 0.9 x10^3/uL (1.0-4.8) Monocytes # (Auto) 1.1 x10^3/uL (0.0-1.1) 1.4 x10^3/uL (0.0-1.1) Eosinophils # (Auto) 0.0 x10^3/uL (0.0-0.7) 0.0 x10^3/uL (0.0-0.7) Basophils # (Auto) 0.0 x10^3/uL (0.0-0.2) 0.0 x10^3/uL (0.0-0.2) Sodium Level 131 mmol/L (136-145) 133 mmol/L (136-145) Potassium Level 4.7 mmol/L (3.5-5.1) 4.1 mmol/L (3.5-5.1) Chloride Level 92 mmol/L (98-107) 92 mmol/L (98-107) Carbon Dioxide Level 30 mmol/L (21-32) 31 mmol/L (21-32) Anion Gap 9 (6-14) 10 (6-14) Blood Urea Nitrogen 54 mg/dL (7-20) 61 mg/dL (7-20) Creatinine 1.5 mg/dL (0.6-1.0) 1.6 mg/dL (0.6-1.0) Estimated GFR (Cockcroft-Gault) 39.9 37.1 BUN/Creatinine Ratio 36 (6-20) Glucose Level 279 mg/dL (70-99) 249 mg/dL (70-99) Calcium Level 9.8 mg/dL (8.5-10.1) 9.2 mg/dL (8.5-10.1) Magnesium Level 2.5 mg/dL (1.8-2.4) 2.7 mg/dL (1.8-2.4) Total Bilirubin 0.8 mg/dL (0.2-1.0) Aspartate Amino Transf (AST/SGOT) 22 U/L (15-37) Alanine Aminotransferase (ALT/SGPT) 13 U/L (14-59) Alkaline Phosphatase 56 U/L (46-116) Creatine Kinase 156 U/L (26-192) 120 U/L (26-192) Troponin I Quantitative < 0.017 ng/mL (0.000-0.055) < 0.017 ng/mL (0.000-0.055) Total Protein 7.8 g/dL (6.4-8.2) Albumin 3.7 g/dL (3.4-5.0) Albumin/Globulin Ratio 0.9 (1.0-1.7) Thyroid Stimulating Hormone (TSH) 1.228 uIU/mL (0.358-3.74) Triglycerides Level 74 mg/dL (0-150) Cholesterol Level 130 mg/dL (0-200) LDL Cholesterol, Calculated 39 mg/dL (0-100) VLDL Cholesterol, Calculated 15 mg/dL (0-40) Non-HDL Cholesterol Calculated 54 mg/dL (0-129) HDL Cholesterol 76 mg/dL (40-60) Cholesterol/HDL Ratio 1.7 Test 07/16/18 10:54 Glucose (Fingerstick) 204 mg/dL (70-99) Assessment/Plan Assessment/Plan IMP MOI-MILD WITH CR OF 1.6-NO EVIDENCE OF GN CKD STAGE 3 WITH CR OF ABOUT 1.2.1.3 DEHYDRATION DM II HTN PLAN HOLD DIURETICS HYDRATION MAY NEED TO HOLD METFORMIN IF MOI IS NOT BETTER BY AM CARDIOLOGY EVAL GI EVALUATION WILL FOLLOW WILLY CASTORENA MD Jul 16, 2018 15:02
--- NOTE | 2018-07-16 15:27 | RAD ---
Abdominal radiograph July 16, 2018 INDICATION: Nasogastric tube placement COMPARISON: CT chest, abdomen and pelvis July 16, 2017 TECHNIQUE: Single upright portable frontal view of the abdomen is provided. FINDINGS: Nasogastric tube is identified with the distal tip projecting over the stomach and the side port below the level of the diaphragm. Cardiac mediastinal silhouette is borderline enlarged. Calcified atheromatous plaque is identified along the thoracic aorta. Lungs are otherwise clear. There are no dilated loops of small or large bowel. No free intraperitoneal air. No differential air-fluid levels. No suspicious osseous amount. IMPRESSION: Nasogastric tube is in appropriate position. Nonobstructive bowel gas pattern. Electronically signed by: Maricel Ojeda MD (07/16/2018 3:24 PM) [id number]
--- NOTE | 2018-07-16 16:21 | NUR ---
SW following pt. Pt completed AD form. Pt is provided with notarized AD and copies to take home. A copy also placed on chart.
--- NOTE | 2018-07-16 18:41 | NUR ---
NG tube output: 1400 mls
[2018-07-16 19:00] VITALS: BP 139/64
[2018-07-16 23:03] VITALS: BP 129/50
[2018-07-17] MEDS: IV NORMAL SALINE 1000ML BAG 1,000 ML IV SCH (01:19)
[2018-07-17 03:12] VITALS: BP 128/52
--- NOTE | 2018-07-17 03:47 | RAD ---
AP abdomen radiograph 07/17/2018 CLINICAL HISTORY: Post NG tube placement. An AP portable digital radiograph of the abdomen was obtained. The tip of a NG tube is seen extending to overlie the antrum of the stomach. Surgical clips are seen within the right upper quadrant abdomen consistent with a cholecystectomy. The abdominal bowel gas pattern is nonobstructive. The visualized lungs were clear. Degenerative changes are seen involving the thoracic and lumbar spine. IMPRESSION: The tip of the NG tube overlies the antrum of the stomach. Electronically signed by: Jus Ramos MD (07/17/2018 3:43 AM) [id number]
--- NOTE | 2018-07-17 04:39 | NUR ---
Ng tube became displaced. New Ng tube was inserted to 50 cm. KUB ordered to confirm placement. The tube is connected to intermitted suction.
[2018-07-17 05:21] LABS: BASO % 0 % (0-3); EOS # 0.1 x10^3/uL (0.0-0.7); EOS % 2 % (0-3); HEMATOCRIT 34.2 % (36.0-47.0); HEMOGLOBIN 11.4 g/dL (12.0-15.5); LYMPH # 0.9 x10^3/uL (1.0-4.8); LYMPH % 13 % (24-48); MEAN CORPUSCULAR HEMOGLOBIN 32 pg (25-35); MEAN CORPUSCULAR HGB CONC 33 g/dL (31-37); MEAN CORPUSCULAR VOLUME 95 fL (79-100); MONO # 1.6 x10^3/uL (0.0-1.1); MONO % 22 % (0-9); NEUT # 4.6 x10^3uL (1.8-7.7); NEUT % 64 % (31-73); PLATELET COUNT 174 x10^3/uL (140-400); RED BLOOD COUNT 3.59 x10^6/uL (3.50-5.40); RED CELL DISTRIBUTION WIDTH 13.1 % (11.5-14.5); WHITE BLOOD COUNT 7.1 x10^3/uL (4.0-11.0)
[2018-07-17 05:31] LABS: CALCIUM 8.9 mg/dL (8.5-10.1); CREATININE 1.6 mg/dL (0.6-1.0); GFR 37.1; POTASSIUM 3.9 mmol/L (3.5-5.1)
[2018-07-17 07:00] VITALS: BP 148/65
[2018-07-17] MEDS ORDERED: PANTOPRAZOLE IV PUSH 40 MG VIAL. IVP ONE (07:30)
[2018-07-17] MEDS: SUCRALFATE 1 GM TABLET. PO SCH ×4 (08:00→21:00)
[2018-07-17] MEDS: INSULIN LISPRO 300 UNITS/3 ML INSULN.PEN. SQ SCH ×3 (08:00→17:00)
[2018-07-17] MEDS: ASPIRIN ENTERIC COATED 81 MG TABLET.DR. PO SCH (08:00)
[2018-07-17] MEDS: CARVEDILOL 12.5 MG TABLET. PO SCH ×2 (08:00→17:00)
--- NOTE | 2018-07-17 08:26 | PDOC2 ---
IRVING DENNEY Raven LAUNDRY PRESS OPERATOR 07/17/18 0826: CONSULT Date of Consult Date of Consult DATE: 07/17/18 TIME: 08:20 Reason for Consult Reason for Consult: SBO Referring Physician Referring Physician: Dr Wyatt Identification/Chief Complaint Chief Complaint abdominal pain, vomiting Source Source: Chart review, Patient History of Present Illness Reason for Visit: Admitted with abdominal pain and vomiting since Saturday. Reports unable to keep much of anything down. Reported last stool Saturday. Nothing since then, reports no flatus She does feel better since admission She has an NG in place Past Medical History Cardiovascular: HTN, Hyperlipidemia Pulmonary: Other CENTRAL NERVOUS SYSTEM: Other GI: No pertinent hx Heme/Onc: No pertinent hx Hepatobiliary: No pertinent hx, Cholelithiasis Psych: No pertinent hx Musculoskeletal: Osteoarthritis Rheumatologic: No pertinent hx Infectious disease: No pertinent hx Renal/: Chronic renal insuff Endocrine: Diabetes Past Surgical History Past Surgical History: Cholecystectomy Family History Family History: Diabetes, Heart Disease, High Cholestrol, Stroke Social History No ALCOHOL: none Drugs: None Lives: with Family Current Medications Current Medications Current Medications Sodium Chloride 1,000 ml @ 60 mls/hr [id number] IV ; Start 07/15/18 at 17:30; Stop 07/16/18 at 10:16; Status DC Insulin Human Lispro (HumaLOG) 0-5 UNITS TIDWMEALS SQ Last administered on 07/16at 12:20; Start 07/15/18 at 17:30 Dextrose (Dextrose 50%-Water Syringe) 12.5 gm PRN Q15MIN PRN IV SEE COMMENTS; Start 07/15/18 at 16:30 Ondansetron HCl (Zofran) 4 mg PRN Q6HRS PRN IV NAUSEA/VOMITING Last administered on 07/16/18at 11:43; Start 07/15/18 at 16:30 Acetaminophen (Tylenol) 325 mg PRN Q4HRS PRN PO MILD PAIN / TEMP; Start at 16:30 Acetaminophen (Tylenol) 650 mg PRN Q4HRS PRN PO MILD PAIN/TEMP, 2ND CHOICE; Start 07/15/18 at 16:30 Aspirin (Ecotrin) 81 mg DAILYWBKFT PO Last administered on 07/16/18at 08:51; Start 07/16/18 at 08:00 Carvedilol (Coreg) 25 mg BIDWMEALS PO Last administered on 07/16/18 08:51; Start 07/15/18 at 17:30 Amlodipine Besylate (Norvasc) 5 mg DAILY PO Last administered on 07/16/18at 08: 51; Start 07/16/18 at 09:00 Al Hydroxide/Mg Hydroxide (Mylanta Plus Xs) 30 ml PRN Q2HR PRN PO HEARTBURN / GAS Last administered on 07/16/18at 11:42; Start 07/15/18 at 16:30 Pantoprazole Sodium (Protonix) 40 mg DAILYAC PO Last administered on 07/16/18 08:51; Start 07/16/18 at 07:30; Stop 07/16/18 at 13:18; Status DC Sucralfate (Carafate) 1 gm TIDWMEALHC PO Last administered on 07/16/18at 12:17; Start 07/15/18 at 22:00 Sodium Chloride 1,000 ml @ 75 mls/hr [id number] IV Last administered on at 01:19; Start 07/15/18 at 21:45 Iohexol (Omnipaque 240 Mg/ml) 30 ml 1X ONCE PO Last administered on 07/16/18at 10:30; Start 07/16/18 at 10:30; Stop 07/16/18 at 10:31; Status DC Info (CONTRAST GIVEN -- Rx MONITORING) 1 each PRN DAILY PRN MC SEE COMMENTS; Start 07/16/18 at 10:30; Stop 07/18/18 at 10:29 Pantoprazole Sodium (PROTONIX VIAL for IV PUSH) 40 mg 1X ONCE IVP ; Start 07/17 at 07:30; Stop 07/17/18 at 07:30; Status DC Pantoprazole Sodium (PROTONIX VIAL for IV PUSH) 40 mg DAILYAC IVP ; Start at 07:30 Lorazepam (Ativan) 0.5 mg PRN QHS PRN IV ANXIETY / AGITATION Last administered on 07/16/18at 21:29; Start 07/16/18 at 18:15 Active Scripts Active Pravastatin Sodium 40 Mg Tablet 1 Tab PO QHS 30 Days Cozaar (Losartan Potassium) 50 Mg Tablet 100 Mg PO DAILY 30 Days Klor-Con 10 (Potassium Chloride) 10 Meq Tablet.er 10 Meq PO DAILYWBKFT 30 Days Reported Hydrochlorothiazide Capsule (Hydrochlorothiazide) 12.5 Mg Capsule 12.5 Mg PO DAILY Levemir (Insulin Detemir) 100 Unit/1 Ml Vial 6 Unit SQ HS Centrum Silver Tablet (Multivits-Min/Fa/Lycopene/Lut) 1 Each Tablet 1 Each PO DAILY Aspirin 81 Mg Tab.chew 1 Tab PO DAILY Metformin Hcl 500 Mg Tablet 500 Mg PO HS Metformin Hcl 1,000 Mg Tablet 1,000 Mg PO DAILYWBKFT Carvedilol 25 Mg Tablet 25 Mg PO BIDWMEALS Allergies Allergies: Coded Allergies: No Known Drug Allergies (Unverified , 06/17/17) ROS General: YES: Fatigue; No: Chills PSYCHOLOGICAL ROS: No: Anxiety, Depression Eyes: No Blurry vision, No Double vision HEENT: YES: Sore Throat; No: Heacaches Hematological and Lymphatic: No: Bleeding Problems, Blood Clots Respiratory: No: Cough, Shortness of breath Cardiovascular: No Chest Pain, No Palpitations Gastrointestinal: Yes Other (see hpi) Genitourinary: No Dysuria, No Retention Musculoskeletal: Yes Muscular Weakness; No Joint Pain Neurological: No Impaired Coord/balance, No Numbness/Tingling Skin: No Pruritus, No Rash Physical Exam General: Alert, Oriented X3, Cooperative, No acute distress HEENT: Mucous membr. moist/pink, Other (NG in place) Lungs: Clear to auscultation, Normal air movement Heart: Regular rate, Normal S1, Normal S2 Abdomen: Soft, Other (ND, NTTP) Extremities: No clubbing, No cyanosis Skin: No rashes, No breakdown Neuro: Normal gait, Normal speech Psych/Mental Status: Mental status NL, Mood NL MUSCULOSKELETAL: No deformity, No swelling Vitals VITALS Vital Signs Date Time Temp Pulse Resp B/P (MAP) Pulse Ox O2 Delivery O2 Flow Rate FiO2 07/17/18 07:00 98.0 84 18 148/65 (92) 94 Room Air 98.0 Labs Labs Laboratory Tests Test 07/15/18 16:13 07/15/18 17:45 07/16/18 06:02 07/16/18 08:33 Glucose (Fingerstick) 251 mg/dL (70-99) 235 mg/dL (70-99) White Blood Count 10.0 x10^3/uL (4.0-11.0) 8.9 x10^3/uL (4.0-11.0) Red Blood Count 3.87 x10^6/uL (3.50-5.40) 3.74 x10^6/uL (3.50-5.40) Hemoglobin 12.4 g/dL (12.0-15.5) 12.0 g/dL (12.0-15.5) Hematocrit 37.2 % (36.0-47.0) 35.7 % (36.0-47.0) Mean Corpuscular Volume 96 fL (79-100) 95 fL (79-100) Mean Corpuscular Hemoglobin 32 pg (25-35) 32 pg (25-35) Mean Corpuscular Hemoglobin Concent 33 g/dL (31-37) 34 g/dL (31-37) Red Cell Distribution Width 13.0 % (11.5-14.5) 13.1 % (11.5-14.5) Platelet Count 190 x10^3/uL (140-400) 187 x10^3/uL (140-400) Neutrophils (%) (Auto) 78 % (31-73) 74 % (31-73) Lymphocytes (%) (Auto) 10 % (24-48) 10 % (24-48) Monocytes (%) (Auto) 11 % (0-9) 15 % (0-9) Eosinophils (%) (Auto) 0 % (0-3) 0 % (0-3) Basophils (%) (Auto) 0 % (0-3) 0 % (0-3) Neutrophils # (Auto) 7.8 x10^3uL (1.8-7.7) 6.6 x10^3uL (1.8-7.7) Lymphocytes # (Auto) 1.0 x10^3/uL (1.0-4.8) 0.9 x10^3/uL (1.0-4.8) Monocytes # (Auto) 1.1 x10^3/uL (0.0-1.1) 1.4 x10^3/uL (0.0-1.1) Eosinophils # (Auto) 0.0 x10^3/uL (0.0-0.7) 0.0 x10^3/uL (0.0-0.7) Basophils # (Auto) 0.0 x10^3/uL (0.0-0.2) 0.0 x10^3/uL (0.0-0.2) Sodium Level 131 mmol/L (136-145) 133 mmol/L (136-145) Potassium Level 4.7 mmol/L (3.5-5.1) 4.1 mmol/L (3.5-5.1) Chloride Level 92 mmol/L (98-107) 92 mmol/L (98-107) Carbon Dioxide Level 30 mmol/L (21-32) 31 mmol/L (21-32) Anion Gap 9 (6-14) 10 (6-14) Blood Urea Nitrogen 54 mg/dL (7-20) 61 mg/dL (7-20) Creatinine 1.5 mg/dL (0.6-1.0) 1.6 mg/dL (0.6-1.0) Estimated GFR (Cockcroft-Gault) 39.9 37.1 BUN/Creatinine Ratio 36 (6-20) Glucose Level 279 mg/dL (70-99) 249 mg/dL (70-99) Calcium Level 9.8 mg/dL (8.5-10.1) 9.2 mg/dL (8.5-10.1) Magnesium Level 2.5 mg/dL (1.8-2.4) 2.7 mg/dL (1.8-2.4) Total Bilirubin 0.8 mg/dL (0.2-1.0) Aspartate Amino Transf (AST/SGOT) 22 U/L (15-37) Alanine Aminotransferase (ALT/SGPT) 13 U/L (14-59) Alkaline Phosphatase 56 U/L (46-116) Creatine Kinase 156 U/L (26-192) 120 U/L (26-192) Troponin I Quantitative < 0.017 ng/mL (0.000-0.055) < 0.017 ng/mL (0.000-0.055) Total Protein 7.8 g/dL (6.4-8.2) Albumin 3.7 g/dL (3.4-5.0) Albumin/Globulin Ratio 0.9 (1.0-1.7) Thyroid Stimulating Hormone (TSH) 1.228 uIU/mL (0.358-3.74) Triglycerides Level 74 mg/dL (0-150) Cholesterol Level 130 mg/dL (0-200) LDL Cholesterol, Calculated 39 mg/dL (0-100) VLDL Cholesterol, Calculated 15 mg/dL (0-40) Non-HDL Cholesterol Calculated 54 mg/dL (0-129) HDL Cholesterol 76 mg/dL (40-60) Cholesterol/HDL Ratio 1.7 Test 07/16/18 10:54 07/16/18 15:59 07/16/18 20:41 07/17/18 04:40 Glucose (Fingerstick) 204 mg/dL (70-99) 163 mg/dL (70-99) 158 mg/dL (70-99) White Blood Count 7.1 x10^3/uL (4.0-11.0) Red Blood Count 3.59 x10^6/uL (3.50-5.40) Hemoglobin 11.4 g/dL (12.0-15.5) Hematocrit 34.2 % (36.0-47.0) Mean Corpuscular Volume 95 fL (79-100) Mean Corpuscular Hemoglobin 32 pg (25-35) Mean Corpuscular Hemoglobin Concent 33 g/dL (31-37) Red Cell Distribution Width 13.1 % (11.5-14.5) Platelet Count 174 x10^3/uL (140-400) Neutrophils (%) (Auto) 64 % (31-73) Lymphocytes (%) (Auto) 13 % (24-48) Monocytes (%) (Auto) 22 % (0-9) Eosinophils (%) (Auto) 2 % (0-3) Basophils (%) (Auto) 0 % (0-3) Neutrophils # (Auto) 4.6 x10^3uL (1.8-7.7) Lymphocytes # (Auto) 0.9 x10^3/uL (1.0-4.8) Monocytes # (Auto) 1.6 x10^3/uL (0.0-1.1) Eosinophils # (Auto) 0.1 x10^3/uL (0.0-0.7) Basophils # (Auto) 0.0 x10^3/uL (0.0-0.2) Sodium Level 133 mmol/L (136-145) Potassium Level 3.9 mmol/L (3.5-5.1) Chloride Level 93 mmol/L (98-107) Carbon Dioxide Level 30 mmol/L (21-32) Anion Gap 10 (6-14) Blood Urea Nitrogen 67 mg/dL (7-20) Creatinine 1.6 mg/dL (0.6-1.0) Estimated GFR (Cockcroft-Gault) 37.1 Glucose Level 172 mg/dL (70-99) Calcium Level 8.9 mg/dL (8.5-10.1) Test 07/17/18 07:46 Glucose (Fingerstick) 156 mg/dL (70-99) Laboratory Tests Test 07/16/18 08:33 07/16/18 10:54 07/16/18 15:59 07/16/18 20:41 White Blood Count 8.9 x10^3/uL (4.0-11.0) Red Blood Count 3.74 x10^6/uL (3.50-5.40) Hemoglobin 12.0 g/dL (12.0-15.5) Hematocrit 35.7 % (36.0-47.0) Mean Corpuscular Volume 95 fL (79-100) Mean Corpuscular Hemoglobin 32 pg (25-35) Mean Corpuscular Hemoglobin Concent 34 g/dL (31-37) Red Cell Distribution Width 13.1 % (11.5-14.5) Platelet Count 187 x10^3/uL (140-400) Neutrophils (%) (Auto) 74 % (31-73) Lymphocytes (%) (Auto) 10 % (24-48) Monocytes (%) (Auto) 15 % (0-9) Eosinophils (%) (Auto) 0 % (0-3) Basophils (%) (Auto) 0 % (0-3) Neutrophils # (Auto) 6.6 x10^3uL (1.8-7.7) Lymphocytes # (Auto) 0.9 x10^3/uL (1.0-4.8) Monocytes # (Auto) 1.4 x10^3/uL (0.0-1.1) Eosinophils # (Auto) 0.0 x10^3/uL (0.0-0.7) Basophils # (Auto) 0.0 x10^3/uL (0.0-0.2) Sodium Level 133 mmol/L (136-145) Potassium Level 4.1 mmol/L (3.5-5.1) Chloride Level 92 mmol/L (98-107) Carbon Dioxide Level 31 mmol/L (21-32) Anion Gap 10 (6-14) Blood Urea Nitrogen 61 mg/dL (7-20) Creatinine 1.6 mg/dL (0.6-1.0) Estimated GFR (Cockcroft-Gault) 37.1 Glucose Level 249 mg/dL (70-99) Calcium Level 9.2 mg/dL (8.5-10.1) Magnesium Level 2.7 mg/dL (1.8-2.4) Creatine Kinase 120 U/L (26-192) Troponin I Quantitative < 0.017 ng/mL (0.000-0.055) Triglycerides Level 74 mg/dL (0-150) Cholesterol Level 130 mg/dL (0-200) LDL Cholesterol, Calculated 39 mg/dL (0-100) VLDL Cholesterol, Calculated 15 mg/dL (0-40) Non-HDL Cholesterol Calculated 54 mg/dL (0-129) HDL Cholesterol 76 mg/dL (40-60) Cholesterol/HDL Ratio 1.7 Glucose (Fingerstick) 204 mg/dL (70-99) 163 mg/dL (70-99) 158 mg/dL (70-99) Test 07/17/18 04:40 07/17/18 07:46 White Blood Count 7.1 x10^3/uL (4.0-11.0) Red Blood Count 3.59 x10^6/uL (3.50-5.40) Hemoglobin 11.4 g/dL (12.0-15.5) Hematocrit 34.2 % (36.0-47.0) Mean Corpuscular Volume 95 fL (79-100) Mean Corpuscular Hemoglobin 32 pg (25-35) Mean Corpuscular Hemoglobin Concent 33 g/dL (31-37) Red Cell Distribution Width 13.1 % (11.5-14.5) Platelet Count 174 x10^3/uL (140-400) Neutrophils (%) (Auto) 64 % (31-73) Lymphocytes (%) (Auto) 13 % (24-48) Monocytes (%) (Auto) 22 % (0-9) Eosinophils (%) (Auto) 2 % (0-3) Basophils (%) (Auto) 0 % (0-3) Neutrophils # (Auto) 4.6 x10^3uL (1.8-7.7) Lymphocytes # (Auto) 0.9 x10^3/uL (1.0-4.8) Monocytes # (Auto) 1.6 x10^3/uL (0.0-1.1) Eosinophils # (Auto) 0.1 x10^3/uL (0.0-0.7) Basophils # (Auto) 0.0 x10^3/uL (0.0-0.2) Sodium Level 133 mmol/L (136-145) Potassium Level 3.9 mmol/L (3.5-5.1) Chloride Level 93 mmol/L (98-107) Carbon Dioxide Level 30 mmol/L (21-32) Anion Gap 10 (6-14) Blood Urea Nitrogen 67 mg/dL (7-20) Creatinine 1.6 mg/dL (0.6-1.0) Estimated GFR (Cockcroft-Gault) 37.1 Glucose Level 172 mg/dL (70-99) Calcium Level 8.9 mg/dL (8.5-10.1) Glucose (Fingerstick) 156 mg/dL (70-99) Assessment/Plan Assessment/Plan abdominal pain, n/v only surgical hx lap darleen--CT concerning for psbo FU xrays pending CECI STEVE MD 07/17/18 1054: CONSULT Assessment/Plan Assessment/Plan pt seen, interviewed and examined daughter at bedside feels some better with NG belly soft plain films today some better continue conservative management for now serial exams will follow Thanks for consult IRVING DENNEY APRN Jul 17, 2018 08:26 CECI STEVE MD Jul 17, 2018 10:54
--- NOTE | 2018-07-17 08:57 | RAD ---
Acute abdomen series with chest, 3 views, 07/17/2018, 7:54 AM: HISTORY: Small bowel obstruction Comparison is made to a KUB from earlier in the day at 3:31 AM. An NG tube extends into the body of the stomach. Gas is present in large and small bowel with only slight gaseous prominence of small bowel in the left midabdomen. No free air is present in the abdomen. There is no evidence organomegaly. Moderate aortoiliac calcific plaquing is present. The heart is at the upper limits of normal in size. There is calcific plaquing of the aorta. No pulmonary infiltrate is seen. There is no evidence of pleural fluid. IMPRESSION: 1. The NG tube extends into the body of the stomach. 2. Minimal residual gaseous prominence of small bowel in the left midabdomen. Electronically signed by: Doug Melton MD (07/17/2018 8:53 AM) [facility]
[2018-07-17] MEDS: amLODIPine BESYLATE 5 MG TABLET PO SCH (09:00)
[2018-07-17] MEDS: PANTOPRAZOLE IV PUSH 40 MG VIAL. IVP SCH (09:15)
[2018-07-17 11:00] VITALS: BP 137/58
--- NOTE | 2018-07-17 11:29 | NUR ---
Patient's NG tube was not suctioning properly discovered around 1100 today. Cold Food Packer asked for assistance from charge nurse and suction monitor was replaced and suction began properly again with an intial amount of 300mL being removed. This sports writer will continue to monitor to ensure there are no further issues.
--- NOTE | 2018-07-17 11:56 | PDOC ---
PROGRESS NOTES Subjective Subjective sleeping. NG tube in place to suction. discussed with daughter at bedside. lab reviewed. ct scan and echo reports reviewed acute abdominal series improved Objective Objective Vital Signs Date Time Temp Pulse Resp B/P (MAP) Pulse Ox O2 Delivery O2 Flow Rate FiO2 07/17/18 11:00 98.4 84 18 137/58 (84) Room Air 98.4 07/17/18 07:00 94 Intake and Output 07/17/18 07:00 Intake Total 600 ml Output Total 1750 ml Balance -1150 ml Intake Oral 600 ml Output Urine Total 350 ml Gastric Drainage Total 1400 ml # Voids 1 Physical Exam Abdomen: Soft, Other (decreased bowel sounds) Heart: Regular rate, Normal S1, Normal S2 Extremities: No edema General: Other (sleeping) HEENT: Atraumatic Lungs: Other (clear anteriorly) Neuro: Other (sleeping) Psych/Mental Status: Other (sleeping) Skin: No rashes Assessment Assessment 1. Acute kidney injury secondary to dehydration. 2. Partial SBO 3. Hypertension. 4. Diabetes mellitus type 2 5. Gastroesophageal reflux disease. 6. Hyperlipidemia. 7. Atypical chest pain secondary pulmonary hypertension suspect due to obesity Plan Plan of Care NPO increase iv fluids KUB tomorrow NG suction Comment Review of Relevant I have reviewed the following items brandon (where applicable) has been applied. Labs Laboratory Tests Test 07/15/18 16:13 07/15/18 17:45 07/16/18 06:02 07/16/18 08:33 Glucose (Fingerstick) 251 mg/dL (70-99) 235 mg/dL (70-99) White Blood Count 10.0 x10^3/uL (4.0-11.0) 8.9 x10^3/uL (4.0-11.0) Red Blood Count 3.87 x10^6/uL (3.50-5.40) 3.74 x10^6/uL (3.50-5.40) Hemoglobin 12.4 g/dL (12.0-15.5) 12.0 g/dL (12.0-15.5) Hematocrit 37.2 % (36.0-47.0) 35.7 % (36.0-47.0) Mean Corpuscular Volume 96 fL (79-100) 95 fL (79-100) Mean Corpuscular Hemoglobin 32 pg (25-35) 32 pg (25-35) Mean Corpuscular Hemoglobin Concent 33 g/dL (31-37) 34 g/dL (31-37) Red Cell Distribution Width 13.0 % (11.5-14.5) 13.1 % (11.5-14.5) Platelet Count 190 x10^3/uL (140-400) 187 x10^3/uL (140-400) Neutrophils (%) (Auto) 78 % (31-73) 74 % (31-73) Lymphocytes (%) (Auto) 10 % (24-48) 10 % (24-48) Monocytes (%) (Auto) 11 % (0-9) 15 % (0-9) Eosinophils (%) (Auto) 0 % (0-3) 0 % (0-3) Basophils (%) (Auto) 0 % (0-3) 0 % (0-3) Neutrophils # (Auto) 7.8 x10^3uL (1.8-7.7) 6.6 x10^3uL (1.8-7.7) Lymphocytes # (Auto) 1.0 x10^3/uL (1.0-4.8) 0.9 x10^3/uL (1.0-4.8) Monocytes # (Auto) 1.1 x10^3/uL (0.0-1.1) 1.4 x10^3/uL (0.0-1.1) Eosinophils # (Auto) 0.0 x10^3/uL (0.0-0.7) 0.0 x10^3/uL (0.0-0.7) Basophils # (Auto) 0.0 x10^3/uL (0.0-0.2) 0.0 x10^3/uL (0.0-0.2) Sodium Level 131 mmol/L (136-145) 133 mmol/L (136-145) Potassium Level 4.7 mmol/L (3.5-5.1) 4.1 mmol/L (3.5-5.1) Chloride Level 92 mmol/L (98-107) 92 mmol/L (98-107) Carbon Dioxide Level 30 mmol/L (21-32) 31 mmol/L (21-32) Anion Gap 9 (6-14) 10 (6-14) Blood Urea Nitrogen 54 mg/dL (7-20) 61 mg/dL (7-20) Creatinine 1.5 mg/dL (0.6-1.0) 1.6 mg/dL (0.6-1.0) Estimated GFR (Cockcroft-Gault) 39.9 37.1 BUN/Creatinine Ratio 36 (6-20) Glucose Level 279 mg/dL (70-99) 249 mg/dL (70-99) Calcium Level 9.8 mg/dL (8.5-10.1) 9.2 mg/dL (8.5-10.1) Magnesium Level 2.5 mg/dL (1.8-2.4) 2.7 mg/dL (1.8-2.4) Total Bilirubin 0.8 mg/dL (0.2-1.0) Aspartate Amino Transf (AST/SGOT) 22 U/L (15-37) Alanine Aminotransferase (ALT/SGPT) 13 U/L (14-59) Alkaline Phosphatase 56 U/L (46-116) Creatine Kinase 156 U/L (26-192) 120 U/L (26-192) Troponin I Quantitative < 0.017 ng/mL (0.000-0.055) < 0.017 ng/mL (0.000-0.055) Total Protein 7.8 g/dL (6.4-8.2) Albumin 3.7 g/dL (3.4-5.0) Albumin/Globulin Ratio 0.9 (1.0-1.7) Thyroid Stimulating Hormone (TSH) 1.228 uIU/mL (0.358-3.74) Triglycerides Level 74 mg/dL (0-150) Cholesterol Level 130 mg/dL (0-200) LDL Cholesterol, Calculated 39 mg/dL (0-100) VLDL Cholesterol, Calculated 15 mg/dL (0-40) Non-HDL Cholesterol Calculated 54 mg/dL (0-129) HDL Cholesterol 76 mg/dL (40-60) Cholesterol/HDL Ratio 1.7 Test 07/16/18 10:54 07/16/18 15:59 07/16/18 20:41 07/17/18 04:40 Glucose (Fingerstick) 204 mg/dL (70-99) 163 mg/dL (70-99) 158 mg/dL (70-99) White Blood Count 7.1 x10^3/uL (4.0-11.0) Red Blood Count 3.59 x10^6/uL (3.50-5.40) Hemoglobin 11.4 g/dL (12.0-15.5) Hematocrit 34.2 % (36.0-47.0) Mean Corpuscular Volume 95 fL (79-100) Mean Corpuscular Hemoglobin 32 pg (25-35) Mean Corpuscular Hemoglobin Concent 33 g/dL (31-37) Red Cell Distribution Width 13.1 % (11.5-14.5) Platelet Count 174 x10^3/uL (140-400) Neutrophils (%) (Auto) 64 % (31-73) Lymphocytes (%) (Auto) 13 % (24-48) Monocytes (%) (Auto) 22 % (0-9) Eosinophils (%) (Auto) 2 % (0-3) Basophils (%) (Auto) 0 % (0-3) Neutrophils # (Auto) 4.6 x10^3uL (1.8-7.7) Lymphocytes # (Auto) 0.9 x10^3/uL (1.0-4.8) Monocytes # (Auto) 1.6 x10^3/uL (0.0-1.1) Eosinophils # (Auto) 0.1 x10^3/uL (0.0-0.7) Basophils # (Auto) 0.0 x10^3/uL (0.0-0.2) Sodium Level 133 mmol/L (136-145) Potassium Level 3.9 mmol/L (3.5-5.1) Chloride Level 93 mmol/L (98-107) Carbon Dioxide Level 30 mmol/L (21-32) Anion Gap 10 (6-14) Blood Urea Nitrogen 67 mg/dL (7-20) Creatinine 1.6 mg/dL (0.6-1.0) Estimated GFR (Cockcroft-Gault) 37.1 Glucose Level 172 mg/dL (70-99) Calcium Level 8.9 mg/dL (8.5-10.1) Test 07/17/18 07:46 07/17/18 10:53 Glucose (Fingerstick) 156 mg/dL (70-99) 154 mg/dL (70-99) Laboratory Tests Test 07/16/18 15:59 07/16/18 20:41 07/17/18 04:40 07/17/18 07:46 Glucose (Fingerstick) 163 mg/dL (70-99) 158 mg/dL (70-99) 156 mg/dL (70-99) White Blood Count 7.1 x10^3/uL (4.0-11.0) Red Blood Count 3.59 x10^6/uL (3.50-5.40) Hemoglobin 11.4 g/dL (12.0-15.5) Hematocrit 34.2 % (36.0-47.0) Mean Corpuscular Volume 95 fL (79-100) Mean Corpuscular Hemoglobin 32 pg (25-35) Mean Corpuscular Hemoglobin Concent 33 g/dL (31-37) Red Cell Distribution Width 13.1 % (11.5-14.5) Platelet Count 174 x10^3/uL (140-400) Neutrophils (%) (Auto) 64 % (31-73) Lymphocytes (%) (Auto) 13 % (24-48) Monocytes (%) (Auto) 22 % (0-9) Eosinophils (%) (Auto) 2 % (0-3) Basophils (%) (Auto) 0 % (0-3) Neutrophils # (Auto) 4.6 x10^3uL (1.8-7.7) Lymphocytes # (Auto) 0.9 x10^3/uL (1.0-4.8) Monocytes # (Auto) 1.6 x10^3/uL (0.0-1.1) Eosinophils # (Auto) 0.1 x10^3/uL (0.0-0.7) Basophils # (Auto) 0.0 x10^3/uL (0.0-0.2) Sodium Level 133 mmol/L (136-145) Potassium Level 3.9 mmol/L (3.5-5.1) Chloride Level 93 mmol/L (98-107) Carbon Dioxide Level 30 mmol/L (21-32) Anion Gap 10 (6-14) Blood Urea Nitrogen 67 mg/dL (7-20) Creatinine 1.6 mg/dL (0.6-1.0) Estimated GFR (Cockcroft-Gault) 37.1 Glucose Level 172 mg/dL (70-99) Calcium Level 8.9 mg/dL (8.5-10.1) Test 07/17/18 10:53 Glucose (Fingerstick) 154 mg/dL (70-99) Medications Current Medications Sodium Chloride 1,000 ml @ 60 mls/hr [id number] IV ; Start 07/15/18 at 17:30; Stop 07/16/18 at 10:16; Status DC Insulin Human Lispro (HumaLOG) 0-5 UNITS TIDWMEALS SQ Last administered on 07/16at 12:20; Start 07/15/18 at 17:30 Dextrose (Dextrose 50%-Water Syringe) 12.5 gm PRN Q15MIN PRN IV SEE COMMENTS; Start 07/15/18 at 16:30 Ondansetron HCl (Zofran) 4 mg PRN Q6HRS PRN IV NAUSEA/VOMITING Last administered on 07/16/18at 11:43; Start 07/15/18 at 16:30 Acetaminophen (Tylenol) 325 mg PRN Q4HRS PRN PO MILD PAIN / TEMP; Start at 16:30 Acetaminophen (Tylenol) 650 mg PRN Q4HRS PRN PO MILD PAIN/TEMP, 2ND CHOICE; Start 07/15/18 at 16:30 Aspirin (Ecotrin) 81 mg DAILYWBKFT PO Last administered on 07/16/18 08:51; Start 07/16/18 at 08:00 Carvedilol (Coreg) 25 mg BIDWMEALS PO Last administered on 07/16/18 08:51; Start 07/15/18 at 17:30 Amlodipine Besylate (Norvasc) 5 mg DAILY PO Last administered on 07/16/18 08: 51; Start 07/16/18 at 09:00 Al Hydroxide/Mg Hydroxide (Mylanta Plus Xs) 30 ml PRN Q2HR PRN PO HEARTBURN / GAS Last administered on 07/16/18at 11:42; Start 07/15/18 at 16:30 Pantoprazole Sodium (Protonix) 40 mg DAILYAC PO Last administered on 07/16/18 08:51; Start 07/16/18 at 07:30; Stop 07/16/18 at 13:18; Status DC Sucralfate (Carafate) 1 gm TIDWMEALHC PO Last administered on 07/16/18at 12:17; Start 07/15/18 at 22:00 Sodium Chloride 1,000 ml @ 75 mls/hr [id number] IV Last administered on at 01:19; Start 07/15/18 at 21:45 Iohexol (Omnipaque 240 Mg/ml) 30 ml 1X ONCE PO Last administered on 07/16/18at 10:30; Start 07/16/18 at 10:30; Stop 07/16/18 at 10:31; Status DC Info (CONTRAST GIVEN -- Rx MONITORING) 1 each PRN DAILY PRN MC SEE COMMENTS; Start 07/16/18 at 10:30; Stop 07/18/18 at 10:29 Pantoprazole Sodium (PROTONIX VIAL for IV PUSH) 40 mg 1X ONCE IVP ; Start 07/17 at 07:30; Stop 07/17/18 at 07:30; Status DC Pantoprazole Sodium (PROTONIX VIAL for IV PUSH) 40 mg DAILYAC IVP Last administered on 07/17/18at 09:15; Start 07/17/18 at 07:30 Lorazepam (Ativan) 0.5 mg PRN QHS PRN IV ANXIETY / AGITATION Last administered on 07/16/18at 21:29; Start 07/16/18 at 18:15 Active Scripts Active Pravastatin Sodium 40 Mg Tablet 1 Tab PO QHS 30 Days Cozaar (Losartan Potassium) 50 Mg Tablet 100 Mg PO DAILY 30 Days Klor-Con 10 (Potassium Chloride) 10 Meq Tablet.er 10 Meq PO DAILYWBKFT 30 Days Reported Hydrochlorothiazide Capsule (Hydrochlorothiazide) 12.5 Mg Capsule 12.5 Mg PO DAILY Levemir (Insulin Detemir) 100 Unit/1 Ml Vial 6 Unit SQ HS Centrum Silver Tablet (Multivits-Min/Fa/Lycopene/Lut) 1 Each Tablet 1 Each PO DAILY Aspirin 81 Mg Tab.chew 1 Tab PO DAILY Metformin Hcl 500 Mg Tablet 500 Mg PO HS Metformin Hcl 1,000 Mg Tablet 1,000 Mg PO DAILYWBKFT Carvedilol 25 Mg Tablet 25 Mg PO BIDWMEALS Vitals/I & O Vital Sign - Last 24 Hours 3/27/07/16/18 07/16/18 07/16/18 14:41 19:00 20:00 23:03 Temp 98.2 98.7 99.0 98.2 98.7 99.0 Pulse 75 80 77 Resp 18 20 20 B/P (MAP) 132/60 (84) 139/64 (89) 129/50 (76) Pulse Ox 95 91 92 O2 Delivery Room Air Room Air Room Air Room Air 07/17/18 07/17/18 07/17/18 07/17/18 03:12 07:00 08:00 08:00 Temp 98.4 98.0 98.4 98.0 Pulse 76 84 84 Resp 20 18 B/P (MAP) 128/52 (77) 148/65 (92) 148/65 Pulse Ox 92 94 O2 Delivery Room Air Room Air Room Air 07/17/18 07/17/18 09:00 11:00 Temp 98.4 98.4 Pulse 84 84 Resp 18 B/P (MAP) 148/65 137/58 (84) O2 Delivery Room Air Intake and Output 07/16/18 07/16/18 07/17/18 15:00 23:00 07:00 Intake Total 600 ml Output Total 1400 ml 350 ml Balance 600 ml -1400 ml -350 ml DARIA MARTINEZ MD Jul 17, 2018 11:56
[2018-07-17] MEDS ORDERED: POTASSIUM CL 20MEQ D5-0.9%NACL 1,000 ML IV SCH (12:00)
--- NOTE | 2018-07-17 12:15 | PDOC ---
Renal-Progress Notes Subjective Notes Notes NONE History of Present Illness Hx of present illness STABLE Vitals Vitals Vital Signs Date Time Temp Pulse Resp B/P (MAP) Pulse Ox O2 Delivery O2 Flow Rate FiO2 07/17/18 11:00 98.4 84 18 137/58 (84) Room Air 98.4 07/17/18 07:00 94 Weight Weight [ ] I.O. Intake and Output Intake and Output 07/17/18 07:00 Intake Total 600 ml Output Total 1750 ml Balance -1150 ml Intake Oral 600 ml Output Urine Total 350 ml Gastric Drainage Total 1400 ml # Voids 1 Labs Labs Laboratory Tests Test 07/16/18 15:59 07/16/18 20:41 07/17/18 04:40 07/17/18 07:46 Glucose (Fingerstick) 163 mg/dL (70-99) 158 mg/dL (70-99) 156 mg/dL (70-99) White Blood Count 7.1 x10^3/uL (4.0-11.0) Red Blood Count 3.59 x10^6/uL (3.50-5.40) Hemoglobin 11.4 g/dL (12.0-15.5) Hematocrit 34.2 % (36.0-47.0) Mean Corpuscular Volume 95 fL (79-100) Mean Corpuscular Hemoglobin 32 pg (25-35) Mean Corpuscular Hemoglobin Concent 33 g/dL (31-37) Red Cell Distribution Width 13.1 % (11.5-14.5) Platelet Count 174 x10^3/uL (140-400) Neutrophils (%) (Auto) 64 % (31-73) Lymphocytes (%) (Auto) 13 % (24-48) Monocytes (%) (Auto) 22 % (0-9) Eosinophils (%) (Auto) 2 % (0-3) Basophils (%) (Auto) 0 % (0-3) Neutrophils # (Auto) 4.6 x10^3uL (1.8-7.7) Lymphocytes # (Auto) 0.9 x10^3/uL (1.0-4.8) Monocytes # (Auto) 1.6 x10^3/uL (0.0-1.1) Eosinophils # (Auto) 0.1 x10^3/uL (0.0-0.7) Basophils # (Auto) 0.0 x10^3/uL (0.0-0.2) Sodium Level 133 mmol/L (136-145) Potassium Level 3.9 mmol/L (3.5-5.1) Chloride Level 93 mmol/L (98-107) Carbon Dioxide Level 30 mmol/L (21-32) Anion Gap 10 (6-14) Blood Urea Nitrogen 67 mg/dL (7-20) Creatinine 1.6 mg/dL (0.6-1.0) Estimated GFR (Cockcroft-Gault) 37.1 Glucose Level 172 mg/dL (70-99) Calcium Level 8.9 mg/dL (8.5-10.1) Test 07/17/18 10:53 Glucose (Fingerstick) 154 mg/dL (70-99) Review of Systems Constitutional: yes: weakness Ears/Nose/Throat: Yes: no symptom reported Gastrointestional: Yes: abdominal pain Genitourinary: Yes: no symptom reported Musculoskeletal: Yes: no symptom reported Skin: Yes no symptom reported Psychiatric/Neurological: Yes: no symptom reported Endocrine: Yes: no symptom reported Physical Exam General Appearance: no apparent distress Skin: warm Respiratory: decreased breath sounds Heart: S1S2 Abdomen: soft Genitourinary: bladder flat Extremities: pulses present Neurology: alert, oriented Assessment Assessment IMP MOI-MILD WITH CR OF 1.6-AND STABLE CKD STAGE 3 WITH CR OF ABOUT 1.2.1.3 DEHYDRATION DM II HTN SBO PLAN HOLD DIURETICS HYDRATION-PPN CARDIOLOGY EVAL GI EVALUATION WILL FOLLOW WILLY ACSTORENA MD Jul 17, 2018 12:15
--- NOTE | 2018-07-17 12:25 | PDOC ---
Subjective: Subjective: I saw her this morning. Doing okay - denies abd pain and n/v. No flatus or stool. Objective: Objective: Reviewed w/ RN - 1400cc out of NG yesterday afternoon, another 500cc out by 6: 40 p.m. last night - then NG fell out - was replaced but apparently not placed to suction after this. Vital Signs: Vital Signs Date Time Temp Pulse Resp B/P (MAP) Pulse Ox O2 Delivery O2 Flow Rate FiO2 07/17/18 11:00 98.4 84 18 137/58 (84) Room Air 98.4 07/17/18 07:00 94 Labs: Laboratory Tests Test 07/16/18 15:59 07/16/18 20:41 07/17/18 04:40 07/17/18 07:46 Glucose (Fingerstick) 163 mg/dL 158 mg/dL 156 mg/dL White Blood Count 7.1 x10^3/uL Red Blood Count 3.59 x10^6/uL Hemoglobin 11.4 g/dL Hematocrit 34.2 % Mean Corpuscular Volume 95 fL Mean Corpuscular Hemoglobin 32 pg Mean Corpuscular Hemoglobin Concent 33 g/dL Red Cell Distribution Width 13.1 % Platelet Count 174 x10^3/uL Neutrophils (%) (Auto) 64 % Lymphocytes (%) (Auto) 13 % Monocytes (%) (Auto) 22 % Eosinophils (%) (Auto) 2 % Basophils (%) (Auto) 0 % Neutrophils # (Auto) 4.6 x10^3uL Lymphocytes # (Auto) 0.9 x10^3/uL Monocytes # (Auto) 1.6 x10^3/uL Eosinophils # (Auto) 0.1 x10^3/uL Basophils # (Auto) 0.0 x10^3/uL Sodium Level 133 mmol/L Potassium Level 3.9 mmol/L Chloride Level 93 mmol/L Carbon Dioxide Level 30 mmol/L Anion Gap 10 Blood Urea Nitrogen 67 mg/dL Creatinine 1.6 mg/dL Estimated GFR (Cockcroft-Gault) 37.1 Glucose Level 172 mg/dL Calcium Level 8.9 mg/dL Test 07/17/18 10:53 Glucose (Fingerstick) 154 mg/dL Imaging: [facility] 07/17 IMPRESSION: 1. The NG tube extends into the body of the stomach. 2. Minimal residual gaseous prominence of small bowel in the left midabdomen. CT C/A/P 07/16 There is moderate calcific plaquing of the thoracic aorta without evidence of aneurysm. Scattered coronary artery calcifications are present. The heart is at the upper limits of normal in size. No mediastinal adenopathy is seen. The esophagus is mildly dilated and contains residual oral contrast material. This is likely related to gastric distention. No pulmonary mass or significant consolidation is seen. There is only minimal streaky atelectasis or scarring in the lung bases. There is a trace amount of right-sided pleural fluid. The gallbladder is surgically absent. The unopacified liver shows no abnormality. No pancreatic abnormality is seen. The spleen is of normal size. There is mild bilateral renal cortical scarring. A small parenchymal calcification is noted in the left kidney. The renal collecting systems are not dilated. No adrenal abnormality is detected. Aortoiliac calcific plaquing is present without evidence of aneurysm. No abdominal or pelvic adenopathy is evident. The uterus is is within normal limits in size. Colonic diverticulosis is present, most extensive in the sigmoid region. No paracolonic inflammatory process is seen. The colon is not dilated. The stomach is distended. There is mild distention of the duodenum as well as mid and distal small bowel loops. Loops of nondistended distal ileum are visible. The findings suggest partial distal small bowel obstruction. A precise transition zone is not identified, however, it probably lies in the pelvis. No free fluid or free air is evident in the abdomen or pelvis. Moderate scattered degenerative changes are present in the spine, most severe at L2-3 and L3-4. IMPRESSION: 1. Partial distal small bowel obstruction. 2. Moderate colonic diverticulosis. 3. Calcific plaquing of the aorta and coronary arteries. 4. Trace right pleural effusion. 5. Additional chronic findings as described above. PE: GEN: NAD HEENT: NG tube - brownish/bilious contents in canister LUNGS: room air HEART: RRR ABD: quiet, non-tender, soft NEURO/PSYCH: A & O 3 A/P: Partial SBO MIO/CKD, normocytic anemia -- D/w RN - please resume LIS w/ NG, continue PPI. Surgery following - conservative management, serial exams. Will review w/ Dr. Valadez. DAMON EATON Jul 17, 2018 12:25
[2018-07-17] MEDS: AMINO AC 3%/ELECTROLYTE/GLYCER 1,000 ML IV SCH (13:23)
[2018-07-17 15:00] VITALS: BP 135/56
--- NOTE | 2018-07-17 16:50 | NUR ---
Patient was getting up to the chair to have a bed bath with assistance from the aid and it was noted her left arm was swollen. Upon nurse assessment it was determined the IV had infiltrated and was removed.
[2018-07-17 17:35] LABS: BILIRUBIN,URINE SMALL (NEG); CLARITY,URINE CLEAR; COLOR,URINE YELLOW; NITRITE,URINE NEGATIVE (NEG); PROTEIN,URINE NEGATIVE (NEG-TRACE); UROBILINOGEN,URINE 0.2 mg/dL (0.2 mg/dL)
[2018-07-17 17:42] LABS: BACTERIA,URINE 0 /HPF (0-FEW); RBC,URINE RARE /HPF (0-2); SQUAMOUS EPITHELIAL CELL,UR FEW /LPF
[2018-07-17 19:00] VITALS: BP 139/54
[2018-07-17 23:00] VITALS: BP 131/48
[2018-07-18 03:00] VITALS: BP 163/58
[2018-07-18] MEDS: AMINO AC 3%/ELECTROLYTE/GLYCER 1,000 ML IV SCH ×2 (06:01→17:14)
[2018-07-18 06:29] LABS: BASO % 0 % (0-3); EOS # 0.2 x10^3/uL (0.0-0.7); EOS % 4 % (0-3); HEMATOCRIT 31.7 % (36.0-47.0); HEMOGLOBIN 10.7 g/dL (12.0-15.5); LYMPH # 1.1 x10^3/uL (1.0-4.8); LYMPH % 18 % (24-48); MEAN CORPUSCULAR HEMOGLOBIN 32 pg (25-35); MEAN CORPUSCULAR HGB CONC 34 g/dL (31-37); MEAN CORPUSCULAR VOLUME 96 fL (79-100); MONO # 1.2 x10^3/uL (0.0-1.1); MONO % 22 % (0-9); NEUT # 3.2 x10^3uL (1.8-7.7); NEUT % 56 % (31-73); PLATELET COUNT 162 x10^3/uL (140-400); RED BLOOD COUNT 3.32 x10^6/uL (3.50-5.40); WHITE BLOOD COUNT 5.7 x10^3/uL (4.0-11.0)
[2018-07-18 06:45] LABS: CALCIUM 8.2 mg/dL (8.5-10.1); CREATININE 1.3 mg/dL (0.6-1.0); GFR 47.1; MAGNESIUM 2.6 mg/dL (1.8-2.4); POTASSIUM 3.8 mmol/L (3.5-5.1)
[2018-07-18 07:00] VITALS: BP 154/59
[2018-07-18] MEDS: ASPIRIN ENTERIC COATED 81 MG TABLET.DR. PO SCH (08:00)
[2018-07-18] MEDS: INSULIN LISPRO 300 UNITS/3 ML INSULN.PEN. SQ SCH ×3 (08:00→17:00)
[2018-07-18] MEDS: SUCRALFATE 1 GM TABLET. PO SCH (08:00)
[2018-07-18] MEDS: CARVEDILOL 12.5 MG TABLET. PO SCH (08:00)
--- NOTE | 2018-07-18 08:35 | NUR ---
SW following pt. PT/OT has been on hold yesterday. Will await for PT/OT recommendation to assess skilled needs.
[2018-07-18] MEDS: amLODIPine BESYLATE 5 MG TABLET PO SCH (08:45)
[2018-07-18] MEDS: PANTOPRAZOLE IV PUSH 40 MG VIAL. IVP SCH (09:04)
--- NOTE | 2018-07-18 09:16 | PDOC ---
SURGICAL PROGRESS NOTE Subjective resting NG in place no pain some belching no flatus Vital Signs Vital Signs Date Time Temp Pulse Resp B/P (MAP) Pulse Ox O2 Delivery O2 Flow Rate FiO2 07/18/18 07:00 97.7 83 16 154/59 (90) 94 Room Air 97.7 I&O Intake and Output 07/18/18 07:00 Output Total 375 ml Balance -375 ml Gastric Drainage Total 375 ml General: Cooperative, No acute distress Abdomen: Soft, No tenderness Labs Laboratory Tests Test 07/16/18 10:54 07/16/18 15:59 07/16/18 20:41 07/17/18 04:40 Glucose (Fingerstick) 204 mg/dL (70-99) 163 mg/dL (70-99) 158 mg/dL (70-99) White Blood Count 7.1 x10^3/uL (4.0-11.0) Red Blood Count 3.59 x10^6/uL (3.50-5.40) Hemoglobin 11.4 g/dL (12.0-15.5) Hematocrit 34.2 % (36.0-47.0) Mean Corpuscular Volume 95 fL (79-100) Mean Corpuscular Hemoglobin 32 pg (25-35) Mean Corpuscular Hemoglobin Concent 33 g/dL (31-37) Red Cell Distribution Width 13.1 % (11.5-14.5) Platelet Count 174 x10^3/uL (140-400) Neutrophils (%) (Auto) 64 % (31-73) Lymphocytes (%) (Auto) 13 % (24-48) Monocytes (%) (Auto) 22 % (0-9) Eosinophils (%) (Auto) 2 % (0-3) Basophils (%) (Auto) 0 % (0-3) Neutrophils # (Auto) 4.6 x10^3uL (1.8-7.7) Lymphocytes # (Auto) 0.9 x10^3/uL (1.0-4.8) Monocytes # (Auto) 1.6 x10^3/uL (0.0-1.1) Eosinophils # (Auto) 0.1 x10^3/uL (0.0-0.7) Basophils # (Auto) 0.0 x10^3/uL (0.0-0.2) Sodium Level 133 mmol/L (136-145) Potassium Level 3.9 mmol/L (3.5-5.1) Chloride Level 93 mmol/L (98-107) Carbon Dioxide Level 30 mmol/L (21-32) Anion Gap 10 (6-14) Blood Urea Nitrogen 67 mg/dL (7-20) Creatinine 1.6 mg/dL (0.6-1.0) Estimated GFR (Cockcroft-Gault) 37.1 Glucose Level 172 mg/dL (70-99) Calcium Level 8.9 mg/dL (8.5-10.1) Test 07/17/18 07:46 07/17/18 10:53 07/17/18 16:39 07/17/18 17:27 Glucose (Fingerstick) 156 mg/dL (70-99) 154 mg/dL (70-99) 160 mg/dL (70-99) Urine Collection Type Unknown Urine Color Yellow Urine Clarity Clear Urine pH 5.0 Urine Specific Clemmons 1.020 Urine Protein Negative mg/dL (NEG-TRACE) Urine Glucose (UA) Negative mg/dL (NEG) Urine Ketones (Stick) 15 mg/dL (NEG) Urine Blood Negative (NEG) Urine Nitrite Negative (NEG) Urine Bilirubin Small (NEG) Urine Urobilinogen Dipstick 0.2 mg/dL (0.2 mg/dL) Urine Leukocyte Esterase Small (NEG) Urine RBC Rare /HPF (0-2) Urine WBC 5-10 /HPF (0-4) Urine Squamous Epithelial Cells Few /LPF Urine Bacteria 0 /HPF (0-FEW) Urine Mucus Slight /LPF Test 07/17/18 19:42 07/18/18 05:43 07/18/18 07:43 Glucose (Fingerstick) 162 mg/dL (70-99) 202 mg/dL (70-99) White Blood Count 5.7 x10^3/uL (4.0-11.0) Red Blood Count 3.32 x10^6/uL (3.50-5.40) Hemoglobin 10.7 g/dL (12.0-15.5) Hematocrit 31.7 % (36.0-47.0) Mean Corpuscular Volume 96 fL (79-100) Mean Corpuscular Hemoglobin 32 pg (25-35) Mean Corpuscular Hemoglobin Concent 34 g/dL (31-37) Red Cell Distribution Width 13.0 % (11.5-14.5) Platelet Count 162 x10^3/uL (140-400) Neutrophils (%) (Auto) 56 % (31-73) Lymphocytes (%) (Auto) 18 % (24-48) Monocytes (%) (Auto) 22 % (0-9) Eosinophils (%) (Auto) 4 % (0-3) Basophils (%) (Auto) 0 % (0-3) Neutrophils # (Auto) 3.2 x10^3uL (1.8-7.7) Lymphocytes # (Auto) 1.1 x10^3/uL (1.0-4.8) Monocytes # (Auto) 1.2 x10^3/uL (0.0-1.1) Eosinophils # (Auto) 0.2 x10^3/uL (0.0-0.7) Basophils # (Auto) 0.0 x10^3/uL (0.0-0.2) Sodium Level 134 mmol/L (136-145) Potassium Level 3.8 mmol/L (3.5-5.1) Chloride Level 96 mmol/L (98-107) Carbon Dioxide Level 28 mmol/L (21-32) Anion Gap 10 (6-14) Blood Urea Nitrogen 58 mg/dL (7-20) Creatinine 1.3 mg/dL (0.6-1.0) Estimated GFR (Cockcroft-Gault) 47.1 Glucose Level 216 mg/dL (70-99) Calcium Level 8.2 mg/dL (8.5-10.1) Magnesium Level 2.6 mg/dL (1.8-2.4) Laboratory Tests Test 07/17/18 10:53 07/17/18 16:39 07/17/18 17:27 07/17/18 19:42 Glucose (Fingerstick) 154 mg/dL (70-99) 160 mg/dL (70-99) 162 mg/dL (70-99) Urine Collection Type Unknown Urine Color Yellow Urine Clarity Clear Urine pH 5.0 Urine Specific [place]mmons 1.020 Urine Protein Negative mg/dL (NEG-TRACE) Urine Glucose (UA) Negative mg/dL (NEG) Urine Ketones (Stick) 15 mg/dL (NEG) Urine Blood Negative (NEG) Urine Nitrite Negative (NEG) Urine Bilirubin Small (NEG) Urine Urobilinogen Dipstick 0.2 mg/dL (0.2 mg/dL) Urine Leukocyte Esterase Small (NEG) Urine RBC Rare /HPF (0-2) Urine WBC 5-10 /HPF (0-4) Urine Squamous Epithelial Cells Few /LPF Urine Bacteria 0 /HPF (0-FEW) Urine Mucus Slight /LPF Test 07/18/18 05:43 07/18/18 07:43 White Blood Count 5.7 x10^3/uL (4.0-11.0) Red Blood Count 3.32 x10^6/uL (3.50-5.40) Hemoglobin 10.7 g/dL (12.0-15.5) Hematocrit 31.7 % (36.0-47.0) Mean Corpuscular Volume 96 fL (79-100) Mean Corpuscular Hemoglobin 32 pg (25-35) Mean Corpuscular Hemoglobin Concent 34 g/dL (31-37) Red Cell Distribution Width 13.0 % (11.5-14.5) Platelet Count 162 x10^3/uL (140-400) Neutrophils (%) (Auto) 56 % (31-73) Lymphocytes (%) (Auto) 18 % (24-48) Monocytes (%) (Auto) 22 % (0-9) Eosinophils (%) (Auto) 4 % (0-3) Basophils (%) (Auto) 0 % (0-3) Neutrophils # (Auto) 3.2 x10^3uL (1.8-7.7) Lymphocytes # (Auto) 1.1 x10^3/uL (1.0-4.8) Monocytes # (Auto) 1.2 x10^3/uL (0.0-1.1) Eosinophils # (Auto) 0.2 x10^3/uL (0.0-0.7) Basophils # (Auto) 0.0 x10^3/uL (0.0-0.2) Sodium Level 134 mmol/L (136-145) Potassium Level 3.8 mmol/L (3.5-5.1) Chloride Level 96 mmol/L (98-107) Carbon Dioxide Level 28 mmol/L (21-32) Anion Gap 10 (6-14) Blood Urea Nitrogen 58 mg/dL (7-20) Creatinine 1.3 mg/dL (0.6-1.0) Estimated GFR (Cockcroft-Gault) 47.1 Glucose Level 216 mg/dL (70-99) Calcium Level 8.2 mg/dL (8.5-10.1) Magnesium Level 2.6 mg/dL (1.8-2.4) Glucose (Fingerstick) 202 mg/dL (70-99) Assessment/Plan sbo, NG, bowel rest, hydration KUB pending IRVING DENNEY APRN Jul 18, 2018 09:16
--- NOTE | 2018-07-18 09:44 | RAD ---
Portable abdomen, 07/18/2018: HISTORY: Partial small bowel obstruction Comparison is made to yesterday's study. The NG tube has been removed. There is a moderate amount of gas in the stomach. There is mild gaseous distention of small bowel loops in the central abdomen. Gas and stool is present in the colon. Surgical clips are present right upper quadrant. Scattered vascular calcifications are present. IMPRESSION: 1. The NG tube has been removed. 2. Mild gaseous distention of small bowel loops compatible with ongoing partial small bowel obstruction. Electronically signed by: Doug Melton MD (07/18/2018 9:41 AM) [facility]
[2018-07-18 10:09] LABS: % BANDS 17 % (0-9); % BASOS 1 % (0-3); % EOS 3 % (0-5); % LYMPHS 17 % (24-48); % MONOS 19 % (0-10); % SEGS 43 % (35-66); PLT ESTIMATE ADEQUATE (ADEQUATE)
[2018-07-18] MEDS ORDERED: hydrALAZINE 20 MG/ML VIAL. IVP PRN (10:45)
--- NOTE | 2018-07-18 10:50 | PDOC ---
PROGRESS NOTES Subjective Subjective feels better. discussed with patient and her daughter. KUB notes no NG tube and nurse to call radiology. still has NG tube in place and suctioning. bp high and will start catapress patch and prn iv hydralazine. receiving PPN. blood sugars and lab reviewed. Objective Objective Vital Signs Date Time Temp Pulse Resp B/P (MAP) Pulse Ox O2 Delivery O2 Flow Rate FiO2 07/18/18 08:00 Room Air 07/18/18 07:00 97.7 83 16 154/59 (90) 94 97.7 Intake and Output 07/18/18 06:59 Output Total 375 ml Balance -375 ml Gastric Drainage Total 375 ml Physical Exam Abdomen: Normal bowel sounds (mild lower abdominal tenderness. no guarding.), Soft, Other Heart: Regular rate, Normal S1, Normal S2 Extremities: No edema General: Alert HEENT: Atraumatic Lungs: Clear to auscultation Neck: Supple Psych/Mental Status: Mental status NL Skin: No rashes Assessment Assessment 1. Acute kidney injury secondary to dehydration. improving 2. Partial SBO 3. Hypertension. BP high 4. Diabetes mellitus type 2 5. Gastroesophageal reflux disease. 6. Hyperlipidemia. 7. Atypical chest pain secondary pulmonary hypertension suspect due to obesity Plan Plan of Care NPO NG suction PPN novolog insulin sliding scale start catapress patch and prn iv hydralazine start low dose Lovenox for dvt prophylaxis up in chair lab tomorrow Comment Review of Relevant I have reviewed the following items brandon (where applicable) has been applied. Labs Laboratory Tests Test 07/16/18 10:54 07/16/18 15:59 07/16/18 20:41 07/17/18 04:40 Glucose (Fingerstick) 204 mg/dL (70-99) 163 mg/dL (70-99) 158 mg/dL (70-99) White Blood Count 7.1 x10^3/uL (4.0-11.0) Red Blood Count 3.59 x10^6/uL (3.50-5.40) Hemoglobin 11.4 g/dL (12.0-15.5) Hematocrit 34.2 % (36.0-47.0) Mean Corpuscular Volume 95 fL (79-100) Mean Corpuscular Hemoglobin 32 pg (25-35) Mean Corpuscular Hemoglobin Concent 33 g/dL (31-37) Red Cell Distribution Width 13.1 % (11.5-14.5) Platelet Count 174 x10^3/uL (140-400) Neutrophils (%) (Auto) 64 % (31-73) Lymphocytes (%) (Auto) 13 % (24-48) Monocytes (%) (Auto) 22 % (0-9) Eosinophils (%) (Auto) 2 % (0-3) Basophils (%) (Auto) 0 % (0-3) Neutrophils # (Auto) 4.6 x10^3uL (1.8-7.7) Lymphocytes # (Auto) 0.9 x10^3/uL (1.0-4.8) Monocytes # (Auto) 1.6 x10^3/uL (0.0-1.1) Eosinophils # (Auto) 0.1 x10^3/uL (0.0-0.7) Basophils # (Auto) 0.0 x10^3/uL (0.0-0.2) Sodium Level 133 mmol/L (136-145) Potassium Level 3.9 mmol/L (3.5-5.1) Chloride Level 93 mmol/L (98-107) Carbon Dioxide Level 30 mmol/L (21-32) Anion Gap 10 (6-14) Blood Urea Nitrogen 67 mg/dL (7-20) Creatinine 1.6 mg/dL (0.6-1.0) Estimated GFR (Cockcroft-Gault) 37.1 Glucose Level 172 mg/dL (70-99) Calcium Level 8.9 mg/dL (8.5-10.1) Test 07/17/18 07:46 07/17/18 10:53 07/17/18 16:39 07/17/18 17:27 Glucose (Fingerstick) 156 mg/dL (70-99) 154 mg/dL (70-99) 160 mg/dL (70-99) Urine Collection Type Unknown Urine Color Yellow Urine Clarity Clear Urine pH 5.0 Urine Specific [place] 1.020 Urine Protein Negative mg/dL (NEG-TRACE) Urine Glucose (UA) Negative mg/dL (NEG) Urine Ketones (Stick) 15 mg/dL (NEG) Urine Blood Negative (NEG) Urine Nitrite Negative (NEG) Urine Bilirubin Small (NEG) Urine Urobilinogen Dipstick 0.2 mg/dL (0.2 mg/dL) Urine Leukocyte Esterase Small (NEG) Urine RBC Rare /HPF (0-2) Urine WBC 5-10 /HPF (0-4) Urine Squamous Epithelial Cells Few /LPF Urine Bacteria 0 /HPF (0-FEW) Urine Mucus Slight /LPF Test 07/17/18 19:42 07/18/18 05:43 07/18/18 07:43 Glucose (Fingerstick) 162 mg/dL (70-99) 202 mg/dL (70-99) White Blood Count 5.7 x10^3/uL (4.0-11.0) Red Blood Count 3.32 x10^6/uL (3.50-5.40) Hemoglobin 10.7 g/dL (12.0-15.5) Hematocrit 31.7 % (36.0-47.0) Mean Corpuscular Volume 96 fL (79-100) Mean Corpuscular Hemoglobin 32 pg (25-35) Mean Corpuscular Hemoglobin Concent 34 g/dL (31-37) Red Cell Distribution Width 13.0 % (11.5-14.5) Platelet Count 162 x10^3/uL (140-400) Neutrophils (%) (Auto) 56 % (31-73) Lymphocytes (%) (Auto) 18 % (24-48) Monocytes (%) (Auto) 22 % (0-9) Eosinophils (%) (Auto) 4 % (0-3) Basophils (%) (Auto) 0 % (0-3) Neutrophils # (Auto) 3.2 x10^3uL (1.8-7.7) Lymphocytes # (Auto) 1.1 x10^3/uL (1.0-4.8) Monocytes # (Auto) 1.2 x10^3/uL (0.0-1.1) Eosinophils # (Auto) 0.2 x10^3/uL (0.0-0.7) Basophils # (Auto) 0.0 x10^3/uL (0.0-0.2) Segmented Neutrophils % 43 % (35-66) Band Neutrophils % 17 % (0-9) Lymphocytes % 17 % (24-48) Monocytes % 19 % (0-10) Eosinophils % 3 % (0-5) Basophils % 1 % (0-3) Platelet Estimate Adequate (ADEQUATE) Sodium Level 134 mmol/L (136-145) Potassium Level 3.8 mmol/L (3.5-5.1) Chloride Level 96 mmol/L (98-107) Carbon Dioxide Level 28 mmol/L (21-32) Anion Gap 10 (6-14) Blood Urea Nitrogen 58 mg/dL (7-20) Creatinine 1.3 mg/dL (0.6-1.0) Estimated GFR (Cockcroft-Gault) 47.1 Glucose Level 216 mg/dL (70-99) Calcium Level 8.2 mg/dL (8.5-10.1) Magnesium Level 2.6 mg/dL (1.8-2.4) Laboratory Tests Test 07/17/18 10:53 07/17/18 16:39 07/17/18 17:27 07/17/18 19:42 Glucose (Fingerstick) 154 mg/dL (70-99) 160 mg/dL (70-99) 162 mg/dL (70-99) Urine Collection Type Unknown Urine Color Yellow Urine Clarity Clear Urine pH 5.0 Urine Specific [place] 1.020 Urine Protein Negative mg/dL (NEG-TRACE) Urine Glucose (UA) Negative mg/dL (NEG) Urine Ketones (Stick) 15 mg/dL (NEG) Urine Blood Negative (NEG) Urine Nitrite Negative (NEG) Urine Bilirubin Small (NEG) Urine Urobilinogen Dipstick 0.2 mg/dL (0.2 mg/dL) Urine Leukocyte Esterase Small (NEG) Urine RBC Rare /HPF (0-2) Urine WBC 5-10 /HPF (0-4) Urine Squamous Epithelial Cells Few /LPF Urine Bacteria 0 /HPF (0-FEW) Urine Mucus Slight /LPF Test 07/18/18 05:43 07/18/18 07:43 White Blood Count 5.7 x10^3/uL (4.0-11.0) Red Blood Count 3.32 x10^6/uL (3.50-5.40) Hemoglobin 10.7 g/dL (12.0-15.5) Hematocrit 31.7 % (36.0-47.0) Mean Corpuscular Volume 96 fL (79-100) Mean Corpuscular Hemoglobin 32 pg (25-35) Mean Corpuscular Hemoglobin Concent 34 g/dL (31-37) Red Cell Distribution Width 13.0 % (11.5-14.5) Platelet Count 162 x10^3/uL (140-400) Neutrophils (%) (Auto) 56 % (31-73) Lymphocytes (%) (Auto) 18 % (24-48) Monocytes (%) (Auto) 22 % (0-9) Eosinophils (%) (Auto) 4 % (0-3) Basophils (%) (Auto) 0 % (0-3) Neutrophils # (Auto) 3.2 x10^3uL (1.8-7.7) Lymphocytes # (Auto) 1.1 x10^3/uL (1.0-4.8) Monocytes # (Auto) 1.2 x10^3/uL (0.0-1.1) Eosinophils # (Auto) 0.2 x10^3/uL (0.0-0.7) Basophils # (Auto) 0.0 x10^3/uL (0.0-0.2) Segmented Neutrophils % 43 % (35-66) Band Neutrophils % 17 % (0-9) Lymphocytes % 17 % (24-48) Monocytes % 19 % (0-10) Eosinophils % 3 % (0-5) Basophils % 1 % (0-3) Platelet Estimate Adequate (ADEQUATE) Sodium Level 134 mmol/L (136-145) Potassium Level 3.8 mmol/L (3.5-5.1) Chloride Level 96 mmol/L (98-107) Carbon Dioxide Level 28 mmol/L (21-32) Anion Gap 10 (6-14) Blood Urea Nitrogen 58 mg/dL (7-20) Creatinine 1.3 mg/dL (0.6-1.0) Estimated GFR (Cockcroft-Gault) 47.1 Glucose Level 216 mg/dL (70-99) Calcium Level 8.2 mg/dL (8.5-10.1) Magnesium Level 2.6 mg/dL (1.8-2.4) Glucose (Fingerstick) 202 mg/dL (70-99) Medications Current Medications Sodium Chloride 1,000 ml @ 60 mls/hr [id number] IV ; Start 07/15/18 at 17:30; Stop 07/16/18 at 10:16; Status DC Insulin Human Lispro (HumaLOG) 0-5 UNITS TIDWMEALS SQ Last administered on 07/16 12:20; Start 07/15/18 at 17:30 Dextrose (Dextrose 50%-Water Syringe) 12.5 gm PRN Q15MIN PRN IV SEE COMMENTS; Start 07/15/18 at 16:30 Ondansetron HCl (Zofran) 4 mg PRN Q6HRS PRN IV NAUSEA/VOMITING Last administered on 07/16/18at 11:43; Start 07/15/18 at 16:30 Acetaminophen (Tylenol) 325 mg PRN Q4HRS PRN PO MILD PAIN / TEMP; Start at 16:30; Stop 07/18/18 at 10:44; Status DC Acetaminophen (Tylenol) 650 mg PRN Q4HRS PRN PO MILD PAIN/TEMP, 2ND CHOICE; Start 07/15/18 at 16:30; Stop 07/18/18 at 10:44; Status DC Aspirin (Ecotrin) 81 mg DAILYWBKFT PO Last administered on 07/16/18 08:51; Start 07/16/18 at 08:00; Stop 07/18/18 at 10:44; Status DC Carvedilol (Coreg) 25 mg BIDWMEALS PO Last administered on 07/16/18 08:51; Start 07/15/18 at 17:30; Stop 07/18/18 at 10:44; Status DC Amlodipine Besylate (Norvasc) 5 mg DAILY PO Last administered on 07/16/18 08: 51; Start 07/16/18 at 09:00; Stop 07/18/18 at 10:44; Status DC Al Hydroxide/Mg Hydroxide (Mylanta Plus Xs) 30 ml PRN Q2HR PRN PO HEARTBURN / GAS Last administered on 07/16/18 11:42; Start 07/15/18 at 16:30; Stop at 10:44; Status DC Pantoprazole Sodium (Protonix) 40 mg DAILYAC PO Last administered on 07/16/18 08:51; Start 07/16/18 at 07:30; Stop 07/16/18 at 13:18; Status DC Sucralfate (Carafate) 1 gm TIDWMEALHC PO Last administered on 07/16/18at 12:17; Start 07/15/18 at 22:00; Stop 07/18/18 at 10:44; Status DC Sodium Chloride 1,000 ml @ 75 mls/hr [id number] IV Last administered on at 01:19; Start 07/15/18 at 21:45; Stop 07/17/18 at 11:51; Status DC Iohexol (Omnipaque 240 Mg/ml) 30 ml 1X ONCE PO Last administered on 07/16/18at 10:30; Start 07/16/18 at 10:30; Stop 07/16/18 at 10:31; Status DC Info (CONTRAST GIVEN -- Rx MONITORING) 1 each PRN DAILY PRN MC SEE COMMENTS; Start 07/16/18 at 10:30; Stop 07/18/18 at 10:29; Status DC Pantoprazole Sodium (PROTONIX VIAL for IV PUSH) 40 mg 1X ONCE IVP ; Start 07/17 at 07:30; Stop 07/17/18 at 07:30; Status DC Pantoprazole Sodium (PROTONIX VIAL for IV PUSH) 40 mg DAILYAC IVP Last administered on 07/18/18at 09:04; Start 07/17/18 at 07:30 Lorazepam (Ativan) 0.5 mg PRN QHS PRN IV ANXIETY / AGITATION Last administered on 07/16/18at 21:29; Start 07/16/18 at 18:15 Potassium Chloride/Dextrose/ Sod Cl 1,000 ml @ 100 mls/hr Q10H IV Last administered on 07/17/18at 12:13; Start 07/17/18 at 12:00; Stop 07/17/18 at 12:18 ; Status DC Amino Acids/ Glycerin/ Electrolytes 1,000 ml @ 80 mls/hr [id number] IV Last administered on 07/18/18at 06:01; Start 07/17/18 at 13:00 Enoxaparin Sodium (Lovenox 30mg Syringe) 30 mg Q24H SQ ; Start 07/18/18 at 12:00 ; Status UNV Active Scripts Active Pravastatin Sodium 40 Mg Tablet 1 Tab PO QHS 30 Days Cozaar (Losartan Potassium) 50 Mg Tablet 100 Mg PO DAILY 30 Days Klor-Con 10 (Potassium Chloride) 10 Meq Tablet.er 10 Meq PO DAILYWBKFT 30 Days Reported Hydrochlorothiazide Capsule (Hydrochlorothiazide) 12.5 Mg Capsule 12.5 Mg PO DAILY Levemir (Insulin Detemir) 100 Unit/1 Ml Vial 6 Unit SQ HS Centrum Silver Tablet (Multivits-Min/Fa/Lycopene/Lut) 1 Each Tablet 1 Each PO DAILY Aspirin 81 Mg Tab.chew 1 Tab PO DAILY Metformin Hcl 500 Mg Tablet 500 Mg PO HS Metformin Hcl 1,000 Mg Tablet 1,000 Mg PO DAILYWBKFT Carvedilol 25 Mg Tablet 25 Mg PO BIDWMEALS Vitals/I & O Vital Sign - Last 24 Hours 07/17/18 07/17/18 07/17/18 07/17/18 11:00 15:00 19:00 20:15 Temp 98.4 98.4 98.9 98.4 98.4 98.9 Pulse 84 84 85 Resp 18 18 18 B/P (MAP) 137/58 (84) 135/56 (82) 139/54 (82) Pulse Ox 93 O2 Delivery Room Air Room Air Room Air Room Air 07/17/18 07/18/18 07/18/18 07/18/18 23:00 03:00 07:00 08:00 Temp 98.9 98.7 97.7 98.9 98.7 97.7 Pulse 90 87 83 Resp 18 18 16 B/P (MAP) 131/48 (75) 163/58 (93) 154/59 (90) Pulse Ox 92 93 94 O2 Delivery Room Air Room Air Room Air Room Air Intake and Output 07/17/18 07/17/18 07/18/18 14:59 22:59 06:59 Output Total 375 ml Balance -375 ml DARIA MARTINEZ MD Jul 18, 2018 10:50
[2018-07-18 11:00] VITALS: BP 176/69
[2018-07-18] MEDS ORDERED: ENOXAPARIN 30 MG/0.3 ML SYRINGE. SQ SCH (12:00)
--- NOTE | 2018-07-18 12:01 | PDOC ---
Renal-Progress Notes Subjective Notes Notes NOTHING NEW History of Present Illness Hx of present illness STABLE Vitals Vitals Vital Signs Date Time Temp Pulse Resp B/P (MAP) Pulse Ox O2 Delivery O2 Flow Rate FiO2 07/18/18 11:06 88 173/69 07/18/18 11:00 98.5 16 91 Room Air 98.5 Weight Weight [ ] I.O. Intake and Output Intake and Output 07/18/18 06:59 Output Total 375 ml Balance -375 ml Gastric Drainage Total 375 ml Labs Labs Laboratory Tests Test 07/17/18 16:39 07/17/18 17:27 07/17/18 19:42 07/18/18 05:43 Glucose (Fingerstick) 160 mg/dL (70-99) 162 mg/dL (70-99) Urine Collection Type Unknown Urine Color Yellow Urine Clarity Clear Urine pH 5.0 Urine Specific [place] 1.020 Urine Protein Negative mg/dL (NEG-TRACE) Urine Glucose (UA) Negative mg/dL (NEG) Urine Ketones (Stick) 15 mg/dL (NEG) Urine Blood Negative (NEG) Urine Nitrite Negative (NEG) Urine Bilirubin Small (NEG) Urine Urobilinogen Dipstick 0.2 mg/dL (0.2 mg/dL) Urine Leukocyte Esterase Small (NEG) Urine RBC Rare /HPF (0-2) Urine WBC 5-10 /HPF (0-4) Urine Squamous Epithelial Cells Few /LPF Urine Bacteria 0 /HPF (0-FEW) Urine Mucus Slight /LPF White Blood Count 5.7 x10^3/uL (4.0-11.0) Red Blood Count 3.32 x10^6/uL (3.50-5.40) Hemoglobin 10.7 g/dL (12.0-15.5) Hematocrit 31.7 % (36.0-47.0) Mean Corpuscular Volume 96 fL (79-100) Mean Corpuscular Hemoglobin 32 pg (25-35) Mean Corpuscular Hemoglobin Concent 34 g/dL (31-37) Red Cell Distribution Width 13.0 % (11.5-14.5) Platelet Count 162 x10^3/uL (140-400) Neutrophils (%) (Auto) 56 % (31-73) Lymphocytes (%) (Auto) 18 % (24-48) Monocytes (%) (Auto) 22 % (0-9) Eosinophils (%) (Auto) 4 % (0-3) Basophils (%) (Auto) 0 % (0-3) Neutrophils # (Auto) 3.2 x10^3uL (1.8-7.7) Lymphocytes # (Auto) 1.1 x10^3/uL (1.0-4.8) Monocytes # (Auto) 1.2 x10^3/uL (0.0-1.1) Eosinophils # (Auto) 0.2 x10^3/uL (0.0-0.7) Basophils # (Auto) 0.0 x10^3/uL (0.0-0.2) Segmented Neutrophils % 43 % (35-66) Band Neutrophils % 17 % (0-9) Lymphocytes % 17 % (24-48) Monocytes % 19 % (0-10) Eosinophils % 3 % (0-5) Basophils % 1 % (0-3) Platelet Estimate Adequate (ADEQUATE) Sodium Level 134 mmol/L (136-145) Potassium Level 3.8 mmol/L (3.5-5.1) Chloride Level 96 mmol/L (98-107) Carbon Dioxide Level 28 mmol/L (21-32) Anion Gap 10 (6-14) Blood Urea Nitrogen 58 mg/dL (7-20) Creatinine 1.3 mg/dL (0.6-1.0) Estimated GFR (Cockcroft-Gault) 47.1 Glucose Level 216 mg/dL (70-99) Calcium Level 8.2 mg/dL (8.5-10.1) Magnesium Level 2.6 mg/dL (1.8-2.4) Test 07/18/18 07:43 07/18/18 11:21 Glucose (Fingerstick) 202 mg/dL (70-99) 224 mg/dL (70-99) Review of Systems Constitutional: yes: weakness Ears/Nose/Throat: Yes: no symptom reported Gastrointestional: Yes: abdominal pain Genitourinary: Yes: no symptom reported Musculoskeletal: Yes: no symptom reported Skin: Yes no symptom reported Psychiatric/Neurological: Yes: no symptom reported Endocrine: Yes: no symptom reported Physical Exam General Appearance: no apparent distress Skin: warm Respiratory: decreased breath sounds Heart: S1S2 Abdomen: soft Genitourinary: bladder flat Extremities: pulses present Neurology: alert, oriented Assessment Assessment IMP MOI-RESOLVED CKD STAGE 3 WITH CR OF ABOUT 1.2.1.3 DEHYDRATION DM II HTN SBO PLAN HOLD DIURETICS ON PPN CARDIOLOGY EVAL GI EVALUATION WILL SIGN OFF PLEASE CALL IF NEEDED WILLY CASTORENA MD Jul 18, 2018 12:01
--- NOTE | 2018-07-18 12:36 | NUR ---
Patient's NG tube could not be seen in the KUB this morning, tube was advanced and secured and another KUB was ordered to confirm correct placement.
--- NOTE | 2018-07-18 13:22 | PDOC ---
Subjective: Subjective: Hanging in there. No pain. [place] like she might have a bowel movement earlier but didn't. Objective: Objective: Per RN - tube advanced and another KUB ordered. 375cc out yesterday. Vital Signs: Vital Signs Date Time Temp Pulse Resp B/P (MAP) Pulse Ox O2 Delivery O2 Flow Rate FiO2 07/18/18 11:06 88 173/69 07/18/18 11:00 98.5 16 91 Room Air 98.5 Labs: Laboratory Tests Test 07/17/18 16:39 07/17/18 17:27 07/17/18 19:42 07/18/18 05:43 Glucose (Fingerstick) 160 mg/dL 162 mg/dL Urine Collection Type Unknown Urine Color Yellow Urine Clarity Clear Urine pH 5.0 Urine Specific [place] 1.020 Urine Protein Negative mg/dL Urine Glucose (UA) Negative mg/dL Urine Ketones (Stick) 15 mg/dL Urine Blood Negative Urine Nitrite Negative Urine Bilirubin Small Urine Urobilinogen Dipstick 0.2 mg/dL Urine Leukocyte Esterase Small Urine RBC Rare /HPF Urine WBC 5-10 /HPF Urine Squamous Epithelial Cells Few /LPF Urine Bacteria 0 /HPF Urine Mucus Slight /LPF White Blood Count 5.7 x10^3/uL Red Blood Count 3.32 x10^6/uL Hemoglobin 10.7 g/dL Hematocrit 31.7 % Mean Corpuscular Volume 96 fL Mean Corpuscular Hemoglobin 32 pg Mean Corpuscular Hemoglobin Concent 34 g/dL Red Cell Distribution Width 13.0 % Platelet Count 162 x10^3/uL Neutrophils (%) (Auto) 56 % Lymphocytes (%) (Auto) 18 % Monocytes (%) (Auto) 22 % Eosinophils (%) (Auto) 4 % Basophils (%) (Auto) 0 % Neutrophils # (Auto) 3.2 x10^3uL Lymphocytes # (Auto) 1.1 x10^3/uL Monocytes # (Auto) 1.2 x10^3/uL Eosinophils # (Auto) 0.2 x10^3/uL Basophils # (Auto) 0.0 x10^3/uL Segmented Neutrophils % 43 % Band Neutrophils % 17 % Lymphocytes % 17 % Monocytes % 19 % Eosinophils % 3 % Basophils % 1 % Platelet Estimate Adequate Sodium Level 134 mmol/L Potassium Level 3.8 mmol/L Chloride Level 96 mmol/L Carbon Dioxide Level 28 mmol/L Anion Gap 10 Blood Urea Nitrogen 58 mg/dL Creatinine 1.3 mg/dL Estimated GFR (Cockcroft-Gault) 47.1 Glucose Level 216 mg/dL Calcium Level 8.2 mg/dL Magnesium Level 2.6 mg/dL Test 07/18/18 07:43 07/18/18 11:21 Glucose (Fingerstick) 202 mg/dL 224 mg/dL Imaging: KUB 07/18 IMPRESSION: 1. The NG tube has been removed. 2. Mild gaseous distention of small bowel loops compatible with ongoing partial small bowel obstruction. PE: GEN: NAD, up to chair LUNGS: CTAB HEART: RRR ABD: soft, non-tender NEURO/PSYCH: A & O 3 A/P: Partial SBO HTN, MOI (better), normocytic anemia -- Issues w/ tube - now advanced and awaiting interval x-ray. Continue same for now. DAMON EATON Jul 18, 2018 13:21
--- NOTE | 2018-07-18 13:54 | RAD ---
KUB Clinical Indication: NG TUBE PLACEMENT Comparison: KUB, earlier same day. Findings: KUB is centered at the level the diaphragm. There is new enteric tube, tip is in the stomach. Mildly dilated small bowel is seen in the midabdomen. No obvious opacity in the lung bases. Atherosclerotic thoracic aorta. No obvious pneumoperitoneum. IMPRESSION: Enteric tube tip is in the stomach. Electronically signed by: Jh Sky MD (07/18/2018 1:51 PM) [id number]
[2018-07-18] MEDS ORDERED: cloNIDine TTS-2 1 PATCH PATCH TD SCH (14:00)
--- NOTE | 2018-07-18 14:55 | NUR ---
SW spoke with pt's daughter regarding PT/OT recommendation for SNU. Daughter is more interested in home health services at this time stating her mother would prefer that. Daughter agreeable to speak with Alvina from [facility] regarding home health services. Will continue to follow.
[2018-07-18 15:00] VITALS: BP 148/59
--- NOTE | 2018-07-18 15:46 | NUR ---
PAULIE following ptMarissa Tinsley discussed with pt's daughter and encouraged SNU might be an appropriate discharge disposition at this time. Pt's daughter is provided with SNU options. Still undecided on options. Will continue to follow.
[2018-07-18 19:00] VITALS: BP 137/69
[2018-07-18 22:56] VITALS: BP 122/70
[2018-07-19 03:00] VITALS: BP 147/64
[2018-07-19] MEDS: AMINO AC 3%/ELECTROLYTE/GLYCER 1,000 ML IV SCH ×2 (04:39→15:00)
[2018-07-19 04:56] LABS: BASO % 0 % (0-3); EOS # 0.2 x10^3/uL (0.0-0.7); EOS % 3 % (0-3); HEMOGLOBIN 10.7 g/dL (12.0-15.5); LYMPH # 1.2 x10^3/uL (1.0-4.8); LYMPH % 19 % (24-48); MEAN CORPUSCULAR HEMOGLOBIN 32 pg (25-35); MEAN CORPUSCULAR HGB CONC 33 g/dL (31-37); MEAN CORPUSCULAR VOLUME 95 fL (79-100); MONO # 1.3 x10^3/uL (0.0-1.1); MONO % 21 % (0-9); NEUT # 3.5 x10^3uL (1.8-7.7); NEUT % 56 % (31-73); PLATELET COUNT 195 x10^3/uL (140-400); RED BLOOD COUNT 3.35 x10^6/uL (3.50-5.40); RED CELL DISTRIBUTION WIDTH 12.6 % (11.5-14.5); WHITE BLOOD COUNT 6.2 x10^3/uL (4.0-11.0)
[2018-07-19 05:10] LABS: CALCIUM 8.1 mg/dL (8.5-10.1); GFR 63.8; POTASSIUM 3.7 mmol/L (3.5-5.1)
[2018-07-19 07:00] VITALS: BP 157/67
[2018-07-19] MEDS: INSULIN LISPRO 300 UNITS/3 ML INSULN.PEN. SQ SCH ×3 (08:00→17:00)
--- NOTE | 2018-07-19 09:30 | NUR ---
PATIENT ALERT AND VERBALLY RESPONSIVE, NG TUBE OUT AT THIS TIME, PATIENT DOES NOT HAVE ANY S/S OF N/V, DENIES PAIN/DISCOMFORT AT THIS TIME, WILL NOTIFY DR. CARSON AND DR. MARTINEZ.
[2018-07-19] MEDS: PANTOPRAZOLE IV PUSH 40 MG VIAL. IVP SCH (09:54)
--- NOTE | 2018-07-19 10:10 | NUR ---
20 G. SALINE LOCK TO RIGHT FA, AREA EDEMATOUS BUT PATIENT DENIES PAIN/DISCOMFORT AT THE AREA, CALL PLACED TO DR. MARTINEZ, ORDERS RECEIVED TO PLACE A MIDLINE, PATIENT AND DAUGHTER INFORMED AND AGREED.
--- NOTE | 2018-07-19 10:55 | PDOC ---
PROGRESS NOTES Subjective Subjective discussed with daughter and nurse. NG tube dislodged and will be replaced. had a tiny bowel movement yesterday. has low grade fever. no cough or dysuria or abdominal pain. WBC normal. lab reviewed. renal function better. blood sugars in 200s Objective Objective Vital Signs Date Time Temp Pulse Resp B/P (MAP) Pulse Ox O2 Delivery O2 Flow Rate FiO2 07/19/18 08:00 Room Air 07/19/18 07:00 99.7 93 14 157/67 (97) 95 99.7 Intake and Output 07/19/18 06:59 Intake Total 1000 ml Output Total 425 ml Balance 575 ml Intake Oral 0 ml IV Total 1000 ml Output Urine Total 425 ml # Voids 4 Physical Exam Abdomen: Normal bowel sounds, Soft, No tenderness Heart: Regular rate, Normal S1, Normal S2 Extremities: No edema General: Alert HEENT: Atraumatic Lungs: Clear to auscultation Neuro: Normal speech Psych/Mental Status: Mental status NL Assessment Assessment 1. Acute kidney injury secondary to dehydration. resolved 2. Partial SBO. 3. Hypertension 4. Diabetes mellitus type 2 5. Gastroesophageal reflux disease. 6. Hyperlipidemia. 7. Atypical chest pain secondary pulmonary hypertension suspect due to obesity low grade fever Plan Plan of Care replace NG tube midline for PPN lab and KUB tomorrow continue catapress patch and prn iv hydralazine increase novolog sliding scale Comment Review of Relevant I have reviewed the following items brandon (where applicable) has been applied. Labs Laboratory Tests Test 07/17/18 10:53 07/17/18 16:39 07/17/18 17:27 07/17/18 19:42 Glucose (Fingerstick) 154 mg/dL (70-99) 160 mg/dL (70-99) 162 mg/dL (70-99) Urine Collection Type Unknown Urine Color Yellow Urine Clarity Clear Urine pH 5.0 Urine Specific [place] 1.020 Urine Protein Negative mg/dL (NEG-TRACE) Urine Glucose (UA) Negative mg/dL (NEG) Urine Ketones (Stick) 15 mg/dL (NEG) Urine Blood Negative (NEG) Urine Nitrite Negative (NEG) Urine Bilirubin Small (NEG) Urine Urobilinogen Dipstick 0.2 mg/dL (0.2 mg/dL) Urine Leukocyte Esterase Small (NEG) Urine RBC Rare /HPF (0-2) Urine WBC 5-10 /HPF (0-4) Urine Squamous Epithelial Cells Few /LPF Urine Bacteria 0 /HPF (0-FEW) Urine Mucus Slight /LPF Test 07/18/18 05:43 07/18/18 07:43 07/18/18 11:21 07/18/18 16:34 White Blood Count 5.7 x10^3/uL (4.0-11.0) Red Blood Count 3.32 x10^6/uL (3.50-5.40) Hemoglobin 10.7 g/dL (12.0-15.5) Hematocrit 31.7 % (36.0-47.0) Mean Corpuscular Volume 96 fL (79-100) Mean Corpuscular Hemoglobin 32 pg (25-35) Mean Corpuscular Hemoglobin Concent 34 g/dL (31-37) Red Cell Distribution Width 13.0 % (11.5-14.5) Platelet Count 162 x10^3/uL (140-400) Neutrophils (%) (Auto) 56 % (31-73) Lymphocytes (%) (Auto) 18 % (24-48) Monocytes (%) (Auto) 22 % (0-9) Eosinophils (%) (Auto) 4 % (0-3) Basophils (%) (Auto) 0 % (0-3) Neutrophils # (Auto) 3.2 x10^3uL (1.8-7.7) Lymphocytes # (Auto) 1.1 x10^3/uL (1.0-4.8) Monocytes # (Auto) 1.2 x10^3/uL (0.0-1.1) Eosinophils # (Auto) 0.2 x10^3/uL (0.0-0.7) Basophils # (Auto) 0.0 x10^3/uL (0.0-0.2) Segmented Neutrophils % 43 % (35-66) Band Neutrophils % 17 % (0-9) Lymphocytes % 17 % (24-48) Monocytes % 19 % (0-10) Eosinophils % 3 % (0-5) Basophils % 1 % (0-3) Platelet Estimate Adequate (ADEQUATE) Sodium Level 134 mmol/L (136-145) Potassium Level 3.8 mmol/L (3.5-5.1) Chloride Level 96 mmol/L (98-107) Carbon Dioxide Level 28 mmol/L (21-32) Anion Gap 10 (6-14) Blood Urea Nitrogen 58 mg/dL (7-20) Creatinine 1.3 mg/dL (0.6-1.0) Estimated GFR (Cockcroft-Gault) 47.1 Glucose Level 216 mg/dL (70-99) Calcium Level 8.2 mg/dL (8.5-10.1) Magnesium Level 2.6 mg/dL (1.8-2.4) Glucose (Fingerstick) 202 mg/dL (70-99) 224 mg/dL (70-99) 248 mg/dL (70-99) Test 07/18/18 20:47 07/19/18 00:13 07/19/18 04:30 Glucose (Fingerstick) 226 mg/dL (70-99) 222 mg/dL (70-99) White Blood Count 6.2 x10^3/uL (4.0-11.0) Red Blood Count 3.35 x10^6/uL (3.50-5.40) Hemoglobin 10.7 g/dL (12.0-15.5) Hematocrit 32.0 % (36.0-47.0) Mean Corpuscular Volume 95 fL (79-100) Mean Corpuscular Hemoglobin 32 pg (25-35) Mean Corpuscular Hemoglobin Concent 33 g/dL (31-37) Red Cell Distribution Width 12.6 % (11.5-14.5) Platelet Count 195 x10^3/uL (140-400) Neutrophils (%) (Auto) 56 % (31-73) Lymphocytes (%) (Auto) 19 % (24-48) Monocytes (%) (Auto) 21 % (0-9) Eosinophils (%) (Auto) 3 % (0-3) Basophils (%) (Auto) 0 % (0-3) Neutrophils # (Auto) 3.5 x10^3uL (1.8-7.7) Lymphocytes # (Auto) 1.2 x10^3/uL (1.0-4.8) Monocytes # (Auto) 1.3 x10^3/uL (0.0-1.1) Eosinophils # (Auto) 0.2 x10^3/uL (0.0-0.7) Basophils # (Auto) 0.0 x10^3/uL (0.0-0.2) Sodium Level 133 mmol/L (136-145) Potassium Level 3.7 mmol/L (3.5-5.1) Chloride Level 97 mmol/L (98-107) Carbon Dioxide Level 26 mmol/L (21-32) Anion Gap 10 (6-14) Blood Urea Nitrogen 38 mg/dL (7-20) Creatinine 1.0 mg/dL (0.6-1.0) Estimated GFR (Cockcroft-Gault) 63.8 Glucose Level 244 mg/dL (70-99) Calcium Level 8.1 mg/dL (8.5-10.1) Laboratory Tests Test 07/18/18 11:21 07/18/18 16:34 07/18/18 20:47 07/19/18 00:13 Glucose (Fingerstick) 224 mg/dL (70-99) 248 mg/dL (70-99) 226 mg/dL (70-99) 222 mg/dL (70-99) Test 07/19/18 04:30 White Blood Count 6.2 x10^3/uL (4.0-11.0) Red Blood Count 3.35 x10^6/uL (3.50-5.40) Hemoglobin 10.7 g/dL (12.0-15.5) Hematocrit 32.0 % (36.0-47.0) Mean Corpuscular Volume 95 fL (79-100) Mean Corpuscular Hemoglobin 32 pg (25-35) Mean Corpuscular Hemoglobin Concent 33 g/dL (31-37) Red Cell Distribution Width 12.6 % (11.5-14.5) Platelet Count 195 x10^3/uL (140-400) Neutrophils (%) (Auto) 56 % (31-73) Lymphocytes (%) (Auto) 19 % (24-48) Monocytes (%) (Auto) 21 % (0-9) Eosinophils (%) (Auto) 3 % (0-3) Basophils (%) (Auto) 0 % (0-3) Neutrophils # (Auto) 3.5 x10^3uL (1.8-7.7) Lymphocytes # (Auto) 1.2 x10^3/uL (1.0-4.8) Monocytes # (Auto) 1.3 x10^3/uL (0.0-1.1) Eosinophils # (Auto) 0.2 x10^3/uL (0.0-0.7) Basophils # (Auto) 0.0 x10^3/uL (0.0-0.2) Sodium Level 133 mmol/L (136-145) Potassium Level 3.7 mmol/L (3.5-5.1) Chloride Level 97 mmol/L (98-107) Carbon Dioxide Level 26 mmol/L (21-32) Anion Gap 10 (6-14) Blood Urea Nitrogen 38 mg/dL (7-20) Creatinine 1.0 mg/dL (0.6-1.0) Estimated GFR (Cockcroft-Gault) 63.8 Glucose Level 244 mg/dL (70-99) Calcium Level 8.1 mg/dL (8.5-10.1) Medications Current Medications Sodium Chloride 1,000 ml @ 60 mls/hr [id number] IV ; Start 07/15/18 at 17:30; Stop 07/16/18 at 10:16; Status DC Insulin Human Lispro (HumaLOG) 0-5 UNITS TIDWMEALS SQ Last administered on 07/16at 12:20; Start 07/15/18 at 17:30 Dextrose (Dextrose 50%-Water Syringe) 12.5 gm PRN Q15MIN PRN IV SEE COMMENTS; Start 07/15/18 at 16:30 Ondansetron HCl (Zofran) 4 mg PRN Q6HRS PRN IV NAUSEA/VOMITING Last administered on 07/16/18at 11:43; Start 07/15/18 at 16:30 Acetaminophen (Tylenol) 325 mg PRN Q4HRS PRN PO MILD PAIN / TEMP; Start at 16:30; Stop 07/18/18 at 10:44; Status DC Acetaminophen (Tylenol) 650 mg PRN Q4HRS PRN PO MILD PAIN/TEMP, 2ND CHOICE; Start 07/15/18 at 16:30; Stop 07/18/18 at 10:44; Status DC Aspirin (Ecotrin) 81 mg DAILYWBKFT PO Last administered on 07/16/18at 08:51; Start 07/16/18 at 08:00; Stop 07/18/18 at 10:44; Status DC Carvedilol (Coreg) 25 mg BIDWMEALS PO Last administered on 07/16/18at 08:51; Start 07/15/18 at 17:30; Stop 07/18/18 at 10:44; Status DC Amlodipine Besylate (Norvasc) 5 mg DAILY PO Last administered on 07/16/18at 08: 51; Start 07/16/18 at 09:00; Stop 07/18/18 at 10:44; Status DC Al Hydroxide/Mg Hydroxide (Mylanta Plus Xs) 30 ml PRN Q2HR PRN PO HEARTBURN / GAS Last administered on 07/16/18at 11:42; Start 07/15/18 at 16:30; Stop at 10:44; Status DC Pantoprazole Sodium (Protonix) 40 mg DAILYAC PO Last administered on 07/16/18at 08:51; Start 07/16/18 at 07:30; Stop 07/16/18 at 13:18; Status DC Sucralfate (Carafate) 1 gm [id number] PO Last administered on 07/16/18at 12:17; Start 07/15/18 at 22:00; Stop 07/18/18 at 10:44; Status DC Sodium Chloride 1,000 ml @ 75 mls/hr [id number] IV Last administered on at 01:19; Start 07/15/18 at 21:45; Stop 07/17/18 at 11:51; Status DC Iohexol (Omnipaque 240 Mg/ml) 30 ml 1X ONCE PO Last administered on 07/16/18at 10:30; Start 07/16/18 at 10:30; Stop 07/16/18 at 10:31; Status DC Info (CONTRAST GIVEN -- Rx MONITORING) 1 each PRN DAILY PRN MC SEE COMMENTS; Start 07/16/18 at 10:30; Stop 07/18/18 at 10:29; Status DC Pantoprazole Sodium (PROTONIX VIAL for IV PUSH) 40 mg 1X ONCE IVP ; Start 07/17 at 07:30; Stop 07/17/18 at 07:30; Status DC Pantoprazole Sodium (PROTONIX VIAL for IV PUSH) 40 mg DAILYAC IVP Last administered on 07/19/18at 09:54; Start 07/17/18 at 07:30 Lorazepam (Ativan) 0.5 mg PRN QHS PRN IV ANXIETY / AGITATION Last administered on 07/16/18at 21:29; Start 07/16/18 at 18:15 Potassium Chloride/Dextrose/ Sod Cl 1,000 ml @ 100 mls/hr Q10H IV Last administered on 07/17/18at 12:13; Start 07/17/18 at 12:00; Stop 07/17/18 at 12:18 ; Status DC Amino Acids/ Glycerin/ Electrolytes 1,000 ml @ 80 mls/hr [id number] IV Last administered on 07/19/18at 04:39; Start 07/17/18 at 13:00 Enoxaparin Sodium (Lovenox 30mg Syringe) 30 mg Q24H SQ Last administered on at 13:04; Start 07/18/18 at 12:00 Clonidine HCl (Catapres Tts-2) 1 patch Fr TD ; Start 08/18/18 at 11:00; Stop at 11:00; Status DC Hydralazine HCl (Apresoline Inj) 10 mg PRN Q6HRS PRN IVP ELEVATED BP, SEE COMMENTS Last administered on 07/18/18at 11:06; Start 07/18/18 at 10:45 Clonidine HCl (Catapres Tts-2) 1 patch Fr TD Last administered on 07/18/18at 14: 59; Start 07/18/18 at 14:00 Active Scripts Active Pravastatin Sodium 40 Mg Tablet 1 Tab PO QHS 30 Days Cozaar (Losartan Potassium) 50 Mg Tablet 100 Mg PO DAILY 30 Days Klor-Con 10 (Potassium Chloride) 10 Meq Tablet.er 10 Meq PO DAILYWBKFT 30 Days Reported Hydrochlorothiazide Capsule (Hydrochlorothiazide) 12.5 Mg Capsule 12.5 Mg PO DAILY Levemir (Insulin Detemir) 100 Unit/1 Ml Vial 6 Unit SQ HS Centrum Silver Tablet (Multivits-Min/Fa/Lycopene/Lut) 1 Each Tablet 1 Each PO DAILY Aspirin 81 Mg Tab.chew 1 Tab PO DAILY Metformin Hcl 500 Mg Tablet 500 Mg PO HS Metformin Hcl 1,000 Mg Tablet 1,000 Mg PO DAILYWBKFT Carvedilol 25 Mg Tablet 25 Mg PO BIDWMEALS Vitals/I & O Vital Sign - Last 24 Hours 07/18/18 07/18/18 07/18/18 07/18/18 11:00 11:06 15:00 19:00 Temp 98.5 99.2 99.6 98.5 99.2 99.6 Pulse 85 88 91 96 Resp 16 18 16 B/P (MAP) 176/69 (104) 173/69 148/59 (88) 137/69 (91) Pulse Ox 91 93 94 O2 Delivery Room Air Room Air Room Air 07/18/18 07/18/18 07/19/18 07/19/18 20:00 22:56 03:00 07:00 Temp 99.4 99.9 99.7 99.4 99.9 99.7 Pulse 94 97 93 Resp 16 16 14 B/P (MAP) 122/70 (87) 147/64 (91) 157/67 (97) Pulse Ox 92 95 95 O2 Delivery Room Air Room Air Room Air Room Air 07/19/18 08:00 O2 Delivery Room Air Intake and Output 07/18/18 07/18/18 07/19/18 14:59 22:59 06:59 Intake Total 0 ml 1000 ml Output Total 425 ml Balance -425 ml 0 ml 1000 ml DARIA MARTINEZ MD Jul 19, 2018 10:55
[2018-07-19 11:00] VITALS: BP 154/78
--- NOTE | 2018-07-19 11:35 | NUR ---
PATIENT ALERT AND VERBALLY RESPONSIVE, DAUGHTER AT THE BEDSIDE, 16 FR. NG TUBE RE-INSERTED PER THIS MOISTURE METER OPERATOR THROUGH PATIENTS LEFT NARE, PATIENT TOLERATED PROCEDURE WITH MINIMAL DISCOMFORT, HOB ELEVATED, WILL PLACE ORDER FOR STAT KUB.
--- NOTE | 2018-07-19 11:37 | PDOC ---
G I PROGRESS NOTE Subjective Doesn't speak. NGT out again last night. Objective "Smear" of stool only per staff. Physical Exam Lungs clear. RRR Abdomen soft, not distended. Occasional bowel sounds. Review of Relevant I have reviewed the following items brandon (where applicable) has been applied. Labs Laboratory Tests Test 07/17/18 16:39 07/17/18 17:27 07/17/18 19:42 07/18/18 05:43 Glucose (Fingerstick) 160 mg/dL (70-99) 162 mg/dL (70-99) Urine Collection Type Unknown Urine Color Yellow Urine Clarity Clear Urine pH 5.0 Urine Specific [place] 1.020 Urine Protein Negative mg/dL (NEG-TRACE) Urine Glucose (UA) Negative mg/dL (NEG) Urine Ketones (Stick) 15 mg/dL (NEG) Urine Blood Negative (NEG) Urine Nitrite Negative (NEG) Urine Bilirubin Small (NEG) Urine Urobilinogen Dipstick 0.2 mg/dL (0.2 mg/dL) Urine Leukocyte Esterase Small (NEG) Urine RBC Rare /HPF (0-2) Urine WBC 5-10 /HPF (0-4) Urine Squamous Epithelial Cells Few /LPF Urine Bacteria 0 /HPF (0-FEW) Urine Mucus Slight /LPF White Blood Count 5.7 x10^3/uL (4.0-11.0) Red Blood Count 3.32 x10^6/uL (3.50-5.40) Hemoglobin 10.7 g/dL (12.0-15.5) Hematocrit 31.7 % (36.0-47.0) Mean Corpuscular Volume 96 fL (79-100) Mean Corpuscular Hemoglobin 32 pg (25-35) Mean Corpuscular Hemoglobin Concent 34 g/dL (31-37) Red Cell Distribution Width 13.0 % (11.5-14.5) Platelet Count 162 x10^3/uL (140-400) Neutrophils (%) (Auto) 56 % (31-73) Lymphocytes (%) (Auto) 18 % (24-48) Monocytes (%) (Auto) 22 % (0-9) Eosinophils (%) (Auto) 4 % (0-3) Basophils (%) (Auto) 0 % (0-3) Neutrophils # (Auto) 3.2 x10^3uL (1.8-7.7) Lymphocytes # (Auto) 1.1 x10^3/uL (1.0-4.8) Monocytes # (Auto) 1.2 x10^3/uL (0.0-1.1) Eosinophils # (Auto) 0.2 x10^3/uL (0.0-0.7) Basophils # (Auto) 0.0 x10^3/uL (0.0-0.2) Segmented Neutrophils % 43 % (35-66) Band Neutrophils % 17 % (0-9) Lymphocytes % 17 % (24-48) Monocytes % 19 % (0-10) Eosinophils % 3 % (0-5) Basophils % 1 % (0-3) Platelet Estimate Adequate (ADEQUATE) Sodium Level 134 mmol/L (136-145) Potassium Level 3.8 mmol/L (3.5-5.1) Chloride Level 96 mmol/L (98-107) Carbon Dioxide Level 28 mmol/L (21-32) Anion Gap 10 (6-14) Blood Urea Nitrogen 58 mg/dL (7-20) Creatinine 1.3 mg/dL (0.6-1.0) Estimated GFR (Cockcroft-Gault) 47.1 Glucose Level 216 mg/dL (70-99) Calcium Level 8.2 mg/dL (8.5-10.1) Magnesium Level 2.6 mg/dL (1.8-2.4) Test 07/18/18 07:43 07/18/18 11:21 07/18/18 16:34 07/18/18 20:47 Glucose (Fingerstick) 202 mg/dL (70-99) 224 mg/dL (70-99) 248 mg/dL (70-99) 226 mg/dL (70-99) Test 07/19/18 00:13 07/19/18 04:30 Glucose (Fingerstick) 222 mg/dL (70-99) White Blood Count 6.2 x10^3/uL (4.0-11.0) Red Blood Count 3.35 x10^6/uL (3.50-5.40) Hemoglobin 10.7 g/dL (12.0-15.5) Hematocrit 32.0 % (36.0-47.0) Mean Corpuscular Volume 95 fL (79-100) Mean Corpuscular Hemoglobin 32 pg (25-35) Mean Corpuscular Hemoglobin Concent 33 g/dL (31-37) Red Cell Distribution Width 12.6 % (11.5-14.5) Platelet Count 195 x10^3/uL (140-400) Neutrophils (%) (Auto) 56 % (31-73) Lymphocytes (%) (Auto) 19 % (24-48) Monocytes (%) (Auto) 21 % (0-9) Eosinophils (%) (Auto) 3 % (0-3) Basophils (%) (Auto) 0 % (0-3) Neutrophils # (Auto) 3.5 x10^3uL (1.8-7.7) Lymphocytes # (Auto) 1.2 x10^3/uL (1.0-4.8) Monocytes # (Auto) 1.3 x10^3/uL (0.0-1.1) Eosinophils # (Auto) 0.2 x10^3/uL (0.0-0.7) Basophils # (Auto) 0.0 x10^3/uL (0.0-0.2) Sodium Level 133 mmol/L (136-145) Potassium Level 3.7 mmol/L (3.5-5.1) Chloride Level 97 mmol/L (98-107) Carbon Dioxide Level 26 mmol/L (21-32) Anion Gap 10 (6-14) Blood Urea Nitrogen 38 mg/dL (7-20) Creatinine 1.0 mg/dL (0.6-1.0) Estimated GFR (Cockcroft-Gault) 63.8 Glucose Level 244 mg/dL (70-99) Calcium Level 8.1 mg/dL (8.5-10.1) Laboratory Tests Test 07/18/18 16:34 07/18/18 20:47 07/19/18 00:13 07/19/18 04:30 Glucose (Fingerstick) 248 mg/dL (70-99) 226 mg/dL (70-99) 222 mg/dL (70-99) White Blood Count 6.2 x10^3/uL (4.0-11.0) Red Blood Count 3.35 x10^6/uL (3.50-5.40) Hemoglobin 10.7 g/dL (12.0-15.5) Hematocrit 32.0 % (36.0-47.0) Mean Corpuscular Volume 95 fL (79-100) Mean Corpuscular Hemoglobin 32 pg (25-35) Mean Corpuscular Hemoglobin Concent 33 g/dL (31-37) Red Cell Distribution Width 12.6 % (11.5-14.5) Platelet Count 195 x10^3/uL (140-400) Neutrophils (%) (Auto) 56 % (31-73) Lymphocytes (%) (Auto) 19 % (24-48) Monocytes (%) (Auto) 21 % (0-9) Eosinophils (%) (Auto) 3 % (0-3) Basophils (%) (Auto) 0 % (0-3) Neutrophils # (Auto) 3.5 x10^3uL (1.8-7.7) Lymphocytes # (Auto) 1.2 x10^3/uL (1.0-4.8) Monocytes # (Auto) 1.3 x10^3/uL (0.0-1.1) Eosinophils # (Auto) 0.2 x10^3/uL (0.0-0.7) Basophils # (Auto) 0.0 x10^3/uL (0.0-0.2) Sodium Level 133 mmol/L (136-145) Potassium Level 3.7 mmol/L (3.5-5.1) Chloride Level 97 mmol/L (98-107) Carbon Dioxide Level 26 mmol/L (21-32) Anion Gap 10 (6-14) Blood Urea Nitrogen 38 mg/dL (7-20) Creatinine 1.0 mg/dL (0.6-1.0) Estimated GFR (Cockcroft-Gault) 63.8 Glucose Level 244 mg/dL (70-99) Calcium Level 8.1 mg/dL (8.5-10.1) Labs stable. Vitals/I & O Vital Sign - Last 24 Hours 07/18/18 07/18/18 07/18/18 07/18/18 15:00 19:00 20:00 22:56 Temp 99.2 99.6 99.4 99.2 99.6 99.4 Pulse 91 96 94 Resp 18 16 16 B/P (MAP) 148/59 (88) 137/69 (91) 122/70 (87) Pulse Ox 93 94 92 O2 Delivery Room Air Room Air Room Air Room Air 07/19/18 07/19/18 07/19/18 07/19/18 03:00 07:00 08:00 11:00 Temp 99.9 99.7 98.7 99.9 99.7 98.7 Pulse 97 93 91 Resp 16 14 14 B/P (MAP) 147/64 (91) 157/67 (97) 154/78 (103) Pulse Ox 95 95 96 O2 Delivery Room Air Room Air Room Air Room Air Intake and Output 07/18/18 07/18/18 07/19/18 15:00 23:00 07:00 Intake Total 0 ml 1000 ml Output Total 425 ml Balance -425 ml 0 ml 1000 ml Assessment SBO, decompressed some, but clinically not resolved. Plan of Care Note Re-insert NG to suction. Follow clinically. DARIA CARSON MD Jul 19, 2018 11:37
--- NOTE | 2018-07-19 12:50 | RAD ---
KUB History: NG TUBE PLACEMENT Comparison: July 18, 2018 Findings: Single supine AP view of the abdomen is submitted. There is enteric catheter coursing into the stomach. There are gas dilated loops of small bowel somewhat greater, no gas dilated colon identified. Exam is insufficient for the evaluation for free air. Impression: 1. There is enteric catheter coursing into the stomach. There is persistent gas dilated small bowel, evidence of small bowel obstruction, degree of gas distention somewhat increased. Electronically signed by: Luis Enrique Ye MD (07/19/2018 12:47 PM) [facility]
[2018-07-19] MEDS: ENOXAPARIN 40 MG/0.4 ML SYRINGE. SQ SCH (14:59)
[2018-07-19 15:00] VITALS: BP 169/79
--- NOTE | 2018-07-19 15:10 | PDOC ---
PROGRESS NOTES Subjective Subjective Pt denies pain, no flatus Objective Objective Vital Signs Date Time Temp Pulse Resp B/P (MAP) Pulse Ox O2 Delivery O2 Flow Rate FiO2 07/19/18 11:00 98.7 91 14 154/78 (103) 96 Room Air 98.7 Intake and Output 07/19/18 06:59 Intake Total 1000 ml Output Total 425 ml Balance 575 ml Intake Oral 0 ml IV Total 1000 ml Output Urine Total 425 ml # Voids 4 Physical Exam Abdomen: Soft, No tenderness Heart: Regular rate, Normal S1 Extremities: No clubbing, No cyanosis General: Alert, Oriented X3 HEENT: Other (NG in place) Lungs: Clear to auscultation Psych/Mental Status: Mental status NL Assessment Assessment SBO, KUB Impression: 1. There is enteric catheter coursing into the stomach. There is persistent gas dilated small bowel, evidence of small bowel obstruction, degree of gas distention somewhat increased. Plan Plan of Care Continued SBO picture; will get SB series tomorrow Comment Review of Relevant I have reviewed the following items brandon (where applicable) has been applied. Labs Laboratory Tests Test 07/17/18 16:39 07/17/18 17:27 07/17/18 19:42 07/18/18 05:43 Glucose (Fingerstick) 160 mg/dL (70-99) 162 mg/dL (70-99) Urine Collection Type Unknown Urine Color Yellow Urine Clarity Clear Urine pH 5.0 Urine Specific [place] 1.020 Urine Protein Negative mg/dL (NEG-TRACE) Urine Glucose (UA) Negative mg/dL (NEG) Urine Ketones (Stick) 15 mg/dL (NEG) Urine Blood Negative (NEG) Urine Nitrite Negative (NEG) Urine Bilirubin Small (NEG) Urine Urobilinogen Dipstick 0.2 mg/dL (0.2 mg/dL) Urine Leukocyte Esterase Small (NEG) Urine RBC Rare /HPF (0-2) Urine WBC 5-10 /HPF (0-4) Urine Squamous Epithelial Cells Few /LPF Urine Bacteria 0 /HPF (0-FEW) Urine Mucus Slight /LPF White Blood Count 5.7 x10^3/uL (4.0-11.0) Red Blood Count 3.32 x10^6/uL (3.50-5.40) Hemoglobin 10.7 g/dL (12.0-15.5) Hematocrit 31.7 % (36.0-47.0) Mean Corpuscular Volume 96 fL (79-100) Mean Corpuscular Hemoglobin 32 pg (25-35) Mean Corpuscular Hemoglobin Concent 34 g/dL (31-37) Red Cell Distribution Width 13.0 % (11.5-14.5) Platelet Count 162 x10^3/uL (140-400) Neutrophils (%) (Auto) 56 % (31-73) Lymphocytes (%) (Auto) 18 % (24-48) Monocytes (%) (Auto) 22 % (0-9) Eosinophils (%) (Auto) 4 % (0-3) Basophils (%) (Auto) 0 % (0-3) Neutrophils # (Auto) 3.2 x10^3uL (1.8-7.7) Lymphocytes # (Auto) 1.1 x10^3/uL (1.0-4.8) Monocytes # (Auto) 1.2 x10^3/uL (0.0-1.1) Eosinophils # (Auto) 0.2 x10^3/uL (0.0-0.7) Basophils # (Auto) 0.0 x10^3/uL (0.0-0.2) Segmented Neutrophils % 43 % (35-66) Band Neutrophils % 17 % (0-9) Lymphocytes % 17 % (24-48) Monocytes % 19 % (0-10) Eosinophils % 3 % (0-5) Basophils % 1 % (0-3) Platelet Estimate Adequate (ADEQUATE) Sodium Level 134 mmol/L (136-145) Potassium Level 3.8 mmol/L (3.5-5.1) Chloride Level 96 mmol/L (98-107) Carbon Dioxide Level 28 mmol/L (21-32) Anion Gap 10 (6-14) Blood Urea Nitrogen 58 mg/dL (7-20) Creatinine 1.3 mg/dL (0.6-1.0) Estimated GFR (Cockcroft-Gault) 47.1 Glucose Level 216 mg/dL (70-99) Calcium Level 8.2 mg/dL (8.5-10.1) Magnesium Level 2.6 mg/dL (1.8-2.4) Test 07/18/18 07:43 07/18/18 11:21 07/18/18 16:34 07/18/18 20:47 Glucose (Fingerstick) 202 mg/dL (70-99) 224 mg/dL (70-99) 248 mg/dL (70-99) 226 mg/dL (70-99) Test 07/19/18 00:13 07/19/18 04:30 07/19/18 14:08 Glucose (Fingerstick) 222 mg/dL (70-99) 210 mg/dL (70-99) White Blood Count 6.2 x10^3/uL (4.0-11.0) Red Blood Count 3.35 x10^6/uL (3.50-5.40) Hemoglobin 10.7 g/dL (12.0-15.5) Hematocrit 32.0 % (36.0-47.0) Mean Corpuscular Volume 95 fL (79-100) Mean Corpuscular Hemoglobin 32 pg (25-35) Mean Corpuscular Hemoglobin Concent 33 g/dL (31-37) Red Cell Distribution Width 12.6 % (11.5-14.5) Platelet Count 195 x10^3/uL (140-400) Neutrophils (%) (Auto) 56 % (31-73) Lymphocytes (%) (Auto) 19 % (24-48) Monocytes (%) (Auto) 21 % (0-9) Eosinophils (%) (Auto) 3 % (0-3) Basophils (%) (Auto) 0 % (0-3) Neutrophils # (Auto) 3.5 x10^3uL (1.8-7.7) Lymphocytes # (Auto) 1.2 x10^3/uL (1.0-4.8) Monocytes # (Auto) 1.3 x10^3/uL (0.0-1.1) Eosinophils # (Auto) 0.2 x10^3/uL (0.0-0.7) Basophils # (Auto) 0.0 x10^3/uL (0.0-0.2) Sodium Level 133 mmol/L (136-145) Potassium Level 3.7 mmol/L (3.5-5.1) Chloride Level 97 mmol/L (98-107) Carbon Dioxide Level 26 mmol/L (21-32) Anion Gap 10 (6-14) Blood Urea Nitrogen 38 mg/dL (7-20) Creatinine 1.0 mg/dL (0.6-1.0) Estimated GFR (Cockcroft-Gault) 63.8 Glucose Level 244 mg/dL (70-99) Calcium Level 8.1 mg/dL (8.5-10.1) Laboratory Tests Test 07/18/18 16:34 07/18/18 20:47 07/19/18 00:13 07/19/18 04:30 Glucose (Fingerstick) 248 mg/dL (70-99) 226 mg/dL (70-99) 222 mg/dL (70-99) White Blood Count 6.2 x10^3/uL (4.0-11.0) Red Blood Count 3.35 x10^6/uL (3.50-5.40) Hemoglobin 10.7 g/dL (12.0-15.5) Hematocrit 32.0 % (36.0-47.0) Mean Corpuscular Volume 95 fL (79-100) Mean Corpuscular Hemoglobin 32 pg (25-35) Mean Corpuscular Hemoglobin Concent 33 g/dL (31-37) Red Cell Distribution Width 12.6 % (11.5-14.5) Platelet Count 195 x10^3/uL (140-400) Neutrophils (%) (Auto) 56 % (31-73) Lymphocytes (%) (Auto) 19 % (24-48) Monocytes (%) (Auto) 21 % (0-9) Eosinophils (%) (Auto) 3 % (0-3) Basophils (%) (Auto) 0 % (0-3) Neutrophils # (Auto) 3.5 x10^3uL (1.8-7.7) Lymphocytes # (Auto) 1.2 x10^3/uL (1.0-4.8) Monocytes # (Auto) 1.3 x10^3/uL (0.0-1.1) Eosinophils # (Auto) 0.2 x10^3/uL (0.0-0.7) Basophils # (Auto) 0.0 x10^3/uL (0.0-0.2) Sodium Level 133 mmol/L (136-145) Potassium Level 3.7 mmol/L (3.5-5.1) Chloride Level 97 mmol/L (98-107) Carbon Dioxide Level 26 mmol/L (21-32) Anion Gap 10 (6-14) Blood Urea Nitrogen 38 mg/dL (7-20) Creatinine 1.0 mg/dL (0.6-1.0) Estimated GFR (Cockcroft-Gault) 63.8 Glucose Level 244 mg/dL (70-99) Calcium Level 8.1 mg/dL (8.5-10.1) Test 07/19/18 14:08 Glucose (Fingerstick) 210 mg/dL (70-99) Medications Current Medications Sodium Chloride 1,000 ml @ 60 mls/hr [id number] IV ; Start 07/15/18 at 17:30; Stop 07/16/18 at 10:16; Status DC Insulin Human Lispro (HumaLOG) 0-5 UNITS TIDWMEALS SQ Last administered on 07/16at 12:20; Start 07/15/18 at 17:30; Stop 07/19/18 at 10:59; Status DC Dextrose (Dextrose 50%-Water Syringe) 12.5 gm PRN Q15MIN PRN IV SEE COMMENTS; Start 07/15/18 at 16:30 Ondansetron HCl (Zofran) 4 mg PRN Q6HRS PRN IV NAUSEA/VOMITING Last administered on 07/16/18at 11:43; Start 07/15/18 at 16:30 Acetaminophen (Tylenol) 325 mg PRN Q4HRS PRN PO MILD PAIN / TEMP; Start at 16:30; Stop 07/18/18 at 10:44; Status DC Acetaminophen (Tylenol) 650 mg PRN Q4HRS PRN PO MILD PAIN/TEMP, 2ND CHOICE; Start 07/15/18 at 16:30; Stop 07/18/18 at 10:44; Status DC Aspirin (Ecotrin) 81 mg DAILYWBKFT PO Last administered on 07/16/18at 08:51; Start 07/16/18 at 08:00; Stop 07/18/18 at 10:44; Status DC Carvedilol (Coreg) 25 mg BIDWMEALS PO Last administered on 07/16/18at 08:51; Start 07/15/18 at 17:30; Stop 07/18/18 at 10:44; Status DC Amlodipine Besylate (Norvasc) 5 mg DAILY PO Last administered on 07/16/18at 08: 51; Start 07/16/18 at 09:00; Stop 07/18/18 at 10:44; Status DC Al Hydroxide/Mg Hydroxide (Mylanta Plus Xs) 30 ml PRN Q2HR PRN PO HEARTBURN / GAS Last administered on 07/16/18at 11:42; Start 07/15/18 at 16:30; Stop at 10:44; Status DC Pantoprazole Sodium (Protonix) 40 mg DAILYAC PO Last administered on 07/16/18at 08:51; Start 07/16/18 at 07:30; Stop 07/16/18 at 13:18; Status DC Sucralfate (Carafate) 1 gm TIDWMEALHC PO Last administered on 07/16/18at 12:17; Start 07/15/18 at 22:00; Stop 07/18/18 at 10:44; Status DC Sodium Chloride 1,000 ml @ 75 mls/hr [id number] IV Last administered on at 01:19; Start 07/15/18 at 21:45; Stop 07/17/18 at 11:51; Status DC Iohexol (Omnipaque 240 Mg/ml) 30 ml 1X ONCE PO Last administered on 07/16/18at 10:30; Start 07/16/18 at 10:30; Stop 07/16/18 at 10:31; Status DC Info (CONTRAST GIVEN -- Rx MONITORING) 1 each PRN DAILY PRN MC SEE COMMENTS; Start 07/16/18 at 10:30; Stop 07/18/18 at 10:29; Status DC Pantoprazole Sodium (PROTONIX VIAL for IV PUSH) 40 mg 1X ONCE IVP ; Start 07/17 at 07:30; Stop 07/17/18 at 07:30; Status DC Pantoprazole Sodium (PROTONIX VIAL for IV PUSH) 40 mg DAILYAC IVP Last administered on 07/19/18at 09:54; Start 07/17/18 at 07:30 Lorazepam (Ativan) 0.5 mg PRN QHS PRN IV ANXIETY / AGITATION Last administered on 07/16/18at 21:29; Start 07/16/18 at 18:15 Potassium Chloride/Dextrose/ Sod Cl 1,000 ml @ 100 mls/hr Q10H IV Last administered on 07/17/18at 12:13; Start 07/17/18 at 12:00; Stop 07/17/18 at 12:18 ; Status DC Amino Acids/ Glycerin/ Electrolytes 1,000 ml @ 80 mls/hr [id number] IV Last administered on 07/19/18at 15:00; Start 07/17/18 at 13:00 Enoxaparin Sodium (Lovenox 30mg Syringe) 30 mg Q24H SQ Last administered on at 13:04; Start 07/18/18 at 12:00; Stop 07/19/18 at 10:59; Status DC Clonidine HCl (Catapres Tts-2) 1 patch Fr TD ; Start 08/18/18 at 11:00; Stop at 11:00; Status DC Hydralazine HCl (Apresoline Inj) 10 mg PRN Q6HRS PRN IVP ELEVATED BP, SEE COMMENTS Last administered on 07/18/18at 11:06; Start 07/18/18 at 10:45 Clonidine HCl (Catapres Tts-2) 1 patch Fr TD Last administered on 07/18/18at 14: 59; Start 07/18/18 at 14:00 Enoxaparin Sodium (Lovenox 40mg Syringe) 40 mg Q24H SQ Last administered on at 14:59; Start 07/19/18 at 12:00 Insulin Human Lispro (HumaLOG) 0-6 UNITS BG 300-39... TIDWMEALS SQ ; Start 07/19 at 12:00 Active Scripts Active Pravastatin Sodium 40 Mg Tablet 1 Tab PO QHS 30 Days Cozaar (Losartan Potassium) 50 Mg Tablet 100 Mg PO DAILY 30 Days Klor-Con 10 (Potassium Chloride) 10 Meq Tablet.er 10 Meq PO DAILYWBKFT 30 Days Reported Hydrochlorothiazide Capsule (Hydrochlorothiazide) 12.5 Mg Capsule 12.5 Mg PO DAILY Levemir (Insulin Detemir) 100 Unit/1 Ml Vial 6 Unit SQ HS Centrum Silver Tablet (Multivits-Min/Fa/Lycopene/Lut) 1 Each Tablet 1 Each PO DAILY Aspirin 81 Mg Tab.chew 1 Tab PO DAILY Metformin Hcl 500 Mg Tablet 500 Mg PO HS Metformin Hcl 1,000 Mg Tablet 1,000 Mg PO DAILYWBKFT Carvedilol 25 Mg Tablet 25 Mg PO BIDWMEALS Vitals/I & O Vital Sign - Last 24 Hours 07/18/18 07/18/18 07/18/18 07/19/18 19:00 20:00 22:56 03:00 Temp 99.6 99.4 99.9 99.6 99.4 99.9 Pulse 96 94 97 Resp 16 16 16 B/P (MAP) 137/69 (91) 122/70 (87) 147/64 (91) Pulse Ox 94 92 95 O2 Delivery Room Air Room Air Room Air Room Air 07/19/18 07/19/18 07/19/18 07:00 08:00 11:00 Temp 99.7 98.7 99.7 98.7 Pulse 93 91 Resp 14 14 B/P (MAP) 157/67 (97) 154/78 (103) Pulse Ox 95 96 O2 Delivery Room Air Room Air Room Air Intake and Output 07/18/18 07/18/18 07/19/18 14:59 22:59 06:59 Intake Total 0 ml 1000 ml Output Total 425 ml Balance -425 ml 0 ml 1000 ml MIN [place] MD Jul 19, 2018 15:10
[2018-07-19 19:00] VITALS: BP 130/78
[2018-07-19 22:53] VITALS: BP 126/78
[2018-07-20 03:00] VITALS: BP 165/78
[2018-07-20] MEDS: AMINO AC 3%/ELECTROLYTE/GLYCER 1,000 ML IV SCH ×3 (03:30→23:27)
[2018-07-20] MEDS: INSULIN LISPRO 300 UNITS/3 ML INSULN.PEN. SQ SCH ×5 (06:11→23:28)
[2018-07-20 06:26] LABS: CALCIUM 8.4 mg/dL (8.5-10.1); CREATININE 0.9 mg/dL (0.6-1.0); POTASSIUM 4.5 mmol/L (3.5-5.1)
[2018-07-20 06:52] LABS: BASO % 0 % (0-3); EOS # 0.2 x10^3/uL (0.0-0.7); EOS % 4 % (0-3); HEMATOCRIT 33.4 % (36.0-47.0); HEMOGLOBIN 11.2 g/dL (12.0-15.5); LYMPH # 1.1 x10^3/uL (1.0-4.8); LYMPH % 17 % (24-48); MEAN CORPUSCULAR HEMOGLOBIN 32 pg (25-35); MEAN CORPUSCULAR HGB CONC 34 g/dL (31-37); MEAN CORPUSCULAR VOLUME 96 fL (79-100); MONO # 1.2 x10^3/uL (0.0-1.1); MONO % 18 % (0-9); NEUT # 4.1 x10^3uL (1.8-7.7); NEUT % 61 % (31-73); PLATELET COUNT 221 x10^3/uL (140-400); RED BLOOD COUNT 3.49 x10^6/uL (3.50-5.40); RED CELL DISTRIBUTION WIDTH 12.9 % (11.5-14.5); WHITE BLOOD COUNT 6.7 x10^3/uL (4.0-11.0)
[2018-07-20 07:00] VITALS: BP 149/69
[2018-07-20] MEDS: PANTOPRAZOLE IV PUSH 40 MG VIAL. IVP SCH (07:30)
--- NOTE | 2018-07-20 08:36 | RAD ---
Examination: KUB History: PARTIAL SMALL BOWEL OBSTRUCTION Comparison/Correlation: 07/19/2018 two-view x-ray exam Findings: Frontal KUB x-ray exam was performed. Enteric tube terminates within the right upper quadrant. Right upper quadrant surgical clips noted. There are multiple distended small bowel loops are present within the abdomen. No extraluminal gas is questioned. Moderate quantity of retained stool in the colon noted. Degenerative changes of the lumbar spine noted. Impression: Distended loops of small bowel are again seen although of a lesser diameter. Electronically signed by: Santiago Lucero MD (07/20/2018 8:33 AM) [facility]
--- NOTE | 2018-07-20 10:41 | PDOC ---
PROGRESS NOTES Subjective Subjective feels okay. had a small smear of BM yesterday. denies abdominal pain. lab reviewed. KUB shows small bowel dilatation. note stool in rectum and colon. Objective Objective Vital Signs Date Time Temp Pulse Resp B/P (MAP) Pulse Ox O2 Delivery O2 Flow Rate FiO2 07/20/18 07:00 99.1 94 20 149/69 (95) 96 Room Air 99.1 Intake and Output 07/20/18 07:00 Intake Total 0 ml Output Total 600 ml Balance -600 ml Intake Oral 0 ml Output Urine Total 500 ml Gastric Drainage Total 100 ml # Voids 4 Physical Exam Abdomen: Soft, No tenderness, Other (bowel sounds noted. not tender. not distended) Heart: Regular rate, Normal S1, Normal S2 Extremities: No edema General: Alert HEENT: Atraumatic Lungs: Clear to auscultation Neuro: Normal speech Psych/Mental Status: Mental status NL Skin: No rashes Assessment Assessment 1. Acute kidney injury secondary to dehydration resolved 2. Partial SBO. 3. Hypertension 4. Diabetes mellitus type 2 5. Gastroesophageal reflux disease. 6. Hyperlipidemia. 7. Atypical chest pain resolved secondary pulmonary hypertension suspect due to obesity Plan Plan of Care dulcolax suppository now if okay with surgeon. discussed with patient and her nurse lab and KUB tomorrow continue TPN continue NG suction lovenox for dvt prophylaxis Comment Review of Relevant I have reviewed the following items brandon (where applicable) has been applied. Labs Laboratory Tests Test 07/18/18 11:21 07/18/18 16:34 07/18/18 20:47 07/19/18 00:13 Glucose (Fingerstick) 224 mg/dL (70-99) 248 mg/dL (70-99) 226 mg/dL (70-99) 222 mg/dL (70-99) Test 07/19/18 04:30 07/19/18 14:08 07/19/18 18:40 07/19/18 23:49 White Blood Count 6.2 x10^3/uL (4.0-11.0) Red Blood Count 3.35 x10^6/uL (3.50-5.40) Hemoglobin 10.7 g/dL (12.0-15.5) Hematocrit 32.0 % (36.0-47.0) Mean Corpuscular Volume 95 fL (79-100) Mean Corpuscular Hemoglobin 32 pg (25-35) Mean Corpuscular Hemoglobin Concent 33 g/dL (31-37) Red Cell Distribution Width 12.6 % (11.5-14.5) Platelet Count 195 x10^3/uL (140-400) Neutrophils (%) (Auto) 56 % (31-73) Lymphocytes (%) (Auto) 19 % (24-48) Monocytes (%) (Auto) 21 % (0-9) Eosinophils (%) (Auto) 3 % (0-3) Basophils (%) (Auto) 0 % (0-3) Neutrophils # (Auto) 3.5 x10^3uL (1.8-7.7) Lymphocytes # (Auto) 1.2 x10^3/uL (1.0-4.8) Monocytes # (Auto) 1.3 x10^3/uL (0.0-1.1) Eosinophils # (Auto) 0.2 x10^3/uL (0.0-0.7) Basophils # (Auto) 0.0 x10^3/uL (0.0-0.2) Sodium Level 133 mmol/L (136-145) Potassium Level 3.7 mmol/L (3.5-5.1) Chloride Level 97 mmol/L (98-107) Carbon Dioxide Level 26 mmol/L (21-32) Anion Gap 10 (6-14) Blood Urea Nitrogen 38 mg/dL (7-20) Creatinine 1.0 mg/dL (0.6-1.0) Estimated GFR (Cockcroft-Gault) 63.8 Glucose Level 244 mg/dL (70-99) Calcium Level 8.1 mg/dL (8.5-10.1) Glucose (Fingerstick) 210 mg/dL (70-99) 219 mg/dL (70-99) 199 mg/dL (70-99) Test 07/20/18 05:46 07/20/18 05:50 Glucose (Fingerstick) 234 mg/dL (70-99) White Blood Count 6.7 x10^3/uL (4.0-11.0) Red Blood Count 3.49 x10^6/uL (3.50-5.40) Hemoglobin 11.2 g/dL (12.0-15.5) Hematocrit 33.4 % (36.0-47.0) Mean Corpuscular Volume 96 fL (79-100) Mean Corpuscular Hemoglobin 32 pg (25-35) Mean Corpuscular Hemoglobin Concent 34 g/dL (31-37) Red Cell Distribution Width 12.9 % (11.5-14.5) Platelet Count 221 x10^3/uL (140-400) Neutrophils (%) (Auto) 61 % (31-73) Lymphocytes (%) (Auto) 17 % (24-48) Monocytes (%) (Auto) 18 % (0-9) Eosinophils (%) (Auto) 4 % (0-3) Basophils (%) (Auto) 0 % (0-3) Neutrophils # (Auto) 4.1 x10^3uL (1.8-7.7) Lymphocytes # (Auto) 1.1 x10^3/uL (1.0-4.8) Monocytes # (Auto) 1.2 x10^3/uL (0.0-1.1) Eosinophils # (Auto) 0.2 x10^3/uL (0.0-0.7) Basophils # (Auto) 0.0 x10^3/uL (0.0-0.2) Sodium Level 135 mmol/L (136-145) Potassium Level 4.5 mmol/L (3.5-5.1) Chloride Level 98 mmol/L (98-107) Carbon Dioxide Level 28 mmol/L (21-32) Anion Gap 9 (6-14) Blood Urea Nitrogen 22 mg/dL (7-20) Creatinine 0.9 mg/dL (0.6-1.0) Estimated GFR (Cockcroft-Gault) 72.0 Glucose Level 248 mg/dL (70-99) Calcium Level 8.4 mg/dL (8.5-10.1) Laboratory Tests Test 07/19/18 14:08 07/19/18 18:40 07/19/18 23:49 07/20/18 05:46 Glucose (Fingerstick) 210 mg/dL (70-99) 219 mg/dL (70-99) 199 mg/dL (70-99) 234 mg/dL (70-99) Test 07/20/18 05:50 White Blood Count 6.7 x10^3/uL (4.0-11.0) Red Blood Count 3.49 x10^6/uL (3.50-5.40) Hemoglobin 11.2 g/dL (12.0-15.5) Hematocrit 33.4 % (36.0-47.0) Mean Corpuscular Volume 96 fL (79-100) Mean Corpuscular Hemoglobin 32 pg (25-35) Mean Corpuscular Hemoglobin Concent 34 g/dL (31-37) Red Cell Distribution Width 12.9 % (11.5-14.5) Platelet Count 221 x10^3/uL (140-400) Neutrophils (%) (Auto) 61 % (31-73) Lymphocytes (%) (Auto) 17 % (24-48) Monocytes (%) (Auto) 18 % (0-9) Eosinophils (%) (Auto) 4 % (0-3) Basophils (%) (Auto) 0 % (0-3) Neutrophils # (Auto) 4.1 x10^3uL (1.8-7.7) Lymphocytes # (Auto) 1.1 x10^3/uL (1.0-4.8) Monocytes # (Auto) 1.2 x10^3/uL (0.0-1.1) Eosinophils # (Auto) 0.2 x10^3/uL (0.0-0.7) Basophils # (Auto) 0.0 x10^3/uL (0.0-0.2) Sodium Level 135 mmol/L (136-145) Potassium Level 4.5 mmol/L (3.5-5.1) Chloride Level 98 mmol/L (98-107) Carbon Dioxide Level 28 mmol/L (21-32) Anion Gap 9 (6-14) Blood Urea Nitrogen 22 mg/dL (7-20) Creatinine 0.9 mg/dL (0.6-1.0) Estimated GFR (Cockcroft-Gault) 72.0 Glucose Level 248 mg/dL (70-99) Calcium Level 8.4 mg/dL (8.5-10.1) Microbiology 07/17/18 Urine Culture - Final, Complete 07/17/18 Urine Culture Result 1 ([facility]) - Final, Complete Medications Current Medications Sodium Chloride 1,000 ml @ 60 mls/hr [id number] IV ; Start 07/15/18 at 17:30; Stop 07/16/18 at 10:16; Status DC Insulin Human Lispro (HumaLOG) 0-5 UNITS TIDWMEALS SQ Last administered on 07/16at 12:20; Start 07/15/18 at 17:30; Stop 07/19/18 at 10:59; Status DC Dextrose (Dextrose 50%-Water Syringe) 12.5 gm PRN Q15MIN PRN IV SEE COMMENTS; Start 07/15/18 at 16:30 Ondansetron HCl (Zofran) 4 mg PRN Q6HRS PRN IV NAUSEA/VOMITING Last administered on 07/16/18at 11:43; Start 07/15/18 at 16:30 Acetaminophen (Tylenol) 325 mg PRN Q4HRS PRN PO MILD PAIN / TEMP; Start at 16:30; Stop 07/18/18 at 10:44; Status DC Acetaminophen (Tylenol) 650 mg PRN Q4HRS PRN PO MILD PAIN/TEMP, 2ND CHOICE; Start 07/15/18 at 16:30; Stop 07/18/18 at 10:44; Status DC Aspirin (Ecotrin) 81 mg DAILYWBKFT PO Last administered on 07/16/18at 08:51; Start 07/16/18 at 08:00; Stop 07/18/18 at 10:44; Status DC Carvedilol (Coreg) 25 mg BIDWMEALS PO Last administered on 07/16/18at 08:51; Start 07/15/18 at 17:30; Stop 07/18/18 at 10:44; Status DC Amlodipine Besylate (Norvasc) 5 mg DAILY PO Last administered on 07/16/18at 08: 51; Start 07/16/18 at 09:00; Stop 07/18/18 at 10:44; Status DC Al Hydroxide/Mg Hydroxide (Mylanta Plus Xs) 30 ml PRN Q2HR PRN PO HEARTBURN / GAS Last administered on 07/16/18at 11:42; Start 07/15/18 at 16:30; Stop at 10:44; Status DC Pantoprazole Sodium (Protonix) 40 mg DAILYAC PO Last administered on 07/16/18at 08:51; Start 07/16/18 at 07:30; Stop 07/16/18 at 13:18; Status DC Sucralfate (Carafate) 1 gm TIDWMEALHC PO Last administered on 07/16/18at 12:17; Start 07/15/18 at 22:00; Stop 07/18/18 at 10:44; Status DC Sodium Chloride 1,000 ml @ 75 mls/hr [id number] IV Last administered on at 01:19; Start 07/15/18 at 21:45; Stop 07/17/18 at 11:51; Status DC Iohexol (Omnipaque 240 Mg/ml) 30 ml 1X ONCE PO Last administered on 07/16/18at 10:30; Start 07/16/18 at 10:30; Stop 07/16/18 at 10:31; Status DC Info (CONTRAST GIVEN -- Rx MONITORING) 1 each PRN DAILY PRN MC SEE COMMENTS; Start 07/16/18 at 10:30; Stop 07/18/18 at 10:29; Status DC Pantoprazole Sodium (PROTONIX VIAL for IV PUSH) 40 mg 1X ONCE IVP ; Start 07/17 at 07:30; Stop 07/17/18 at 07:30; Status DC Pantoprazole Sodium (PROTONIX VIAL for IV PUSH) 40 mg DAILYAC IVP Last administered on 07/20/18at 07:30; Start 07/17/18 at 07:30 Lorazepam (Ativan) 0.5 mg PRN QHS PRN IV ANXIETY / AGITATION Last administered on 07/16/18at 21:29; Start 07/16/18 at 18:15 Potassium Chloride/Dextrose/ Sod Cl 1,000 ml @ 100 mls/hr Q10H IV Last administered on 07/17/18at 12:13; Start 07/17/18 at 12:00; Stop 07/17/18 at 12:18 ; Status DC Amino Acids/ Glycerin/ Electrolytes 1,000 ml @ 80 mls/hr [id number] IV Last administered on 07/20/18at 09:24; Start 07/17/18 at 13:00 Enoxaparin Sodium (Lovenox 30mg Syringe) 30 mg Q24H SQ Last administered on at 13:04; Start 07/18/18 at 12:00; Stop 07/19/18 at 10:59; Status DC Clonidine HCl (Catapres Tts-2) 1 patch Fr TD ; Start 08/18/18 at 11:00; Stop at 11:00; Status DC Hydralazine HCl (Apresoline Inj) 10 mg PRN Q6HRS PRN IVP ELEVATED BP, SEE COMMENTS Last administered on 07/18/18at 11:06; Start 07/18/18 at 10:45 Clonidine HCl (Catapres Tts-2) 1 patch Fr TD Last administered on 07/18/18at 14: 59; Start 07/18/18 at 14:00 Enoxaparin Sodium (Lovenox 40mg Syringe) 40 mg Q24H SQ Last administered on at 14:59; Start 07/19/18 at 12:00 Insulin Human Lispro (HumaLOG) 0-6 UNITS BG 300-39... TIDWMEALS SQ ; Start 07/19 at 12:00; Stop 07/19/18 at 19:17; Status DC Insulin Human Lispro (HumaLOG) 0-6 UNITS BG 300-39... Q6HRS SQ Last administered on 07/20/18at 06:11; Start 07/20/18 at 00:00 Active Scripts Active Pravastatin Sodium 40 Mg Tablet 1 Tab PO QHS 30 Days Cozaar (Losartan Potassium) 50 Mg Tablet 100 Mg PO DAILY 30 Days Klor-Con 10 (Potassium Chloride) 10 Meq Tablet.er 10 Meq PO DAILYWBKFT 30 Days Reported Hydrochlorothiazide Capsule (Hydrochlorothiazide) 12.5 Mg Capsule 12.5 Mg PO DAILY Levemir (Insulin Detemir) 100 Unit/1 Ml Vial 6 Unit SQ HS Centrum Silver Tablet (Multivits-Min/Fa/Lycopene/Lut) 1 Each Tablet 1 Each PO DAILY Aspirin 81 Mg Tab.chew 1 Tab PO DAILY Metformin Hcl 500 Mg Tablet 500 Mg PO HS Metformin Hcl 1,000 Mg Tablet 1,000 Mg PO DAILYWBKFT Carvedilol 25 Mg Tablet 25 Mg PO BIDWMEALS Vitals/I & O Vital Sign - Last 24 Hours 07/19/18 07/19/18 07/19/18 07/19/18 11:00 15:00 19:00 20:00 Temp 98.7 98.5 98.8 98.7 98.5 98.8 Pulse 91 87 66 Resp 14 12 18 B/P (MAP) 154/78 (103) 169/79 (109) 130/78 (95) Pulse Ox 96 97 98 O2 Delivery Room Air Room Air Room Air Room Air 07/19/18 07/20/18 07/20/18 22:53 03:00 07:00 Temp 98.7 99.5 99.1 98.7 99.5 99.1 Pulse 89 96 94 Resp 18 17 20 B/P (MAP) 126/78 (94) 165/78 (107) 149/69 (95) Pulse Ox 97 95 96 O2 Delivery Room Air Room Air Room Air Intake and Output 07/19/18 07/19/18 07/20/18 15:00 23:00 07:00 Intake Total 0 ml 0 ml Output Total 100 ml 500 ml Balance -100 ml 0 ml -500 ml DARIA MARTINEZ MD Jul 20, 2018 10:41
[2018-07-20] MEDS ORDERED: BISACODYL 10 MG SUPP.RECT. PR ONE (10:45)
[2018-07-20 11:00] VITALS: BP 167/79
--- NOTE | 2018-07-20 11:40 | PDOC ---
G I PROGRESS NOTE Reason for Follow-up SBO Subjective No complaints. Says abdomen feels better. "Smear" of stool yesterday. Physical Exam Lungs clear. RRR Abdomen sift, not tender. Infrequent bowel sounds. Review of Relevant I have reviewed the following items brandon (where applicable) has been applied. Labs Laboratory Tests Test 07/18/18 16:34 07/18/18 20:47 07/19/18 00:13 07/19/18 04:30 Glucose (Fingerstick) 248 mg/dL (70-99) 226 mg/dL (70-99) 222 mg/dL (70-99) White Blood Count 6.2 x10^3/uL (4.0-11.0) Red Blood Count 3.35 x10^6/uL (3.50-5.40) Hemoglobin 10.7 g/dL (12.0-15.5) Hematocrit 32.0 % (36.0-47.0) Mean Corpuscular Volume 95 fL (79-100) Mean Corpuscular Hemoglobin 32 pg (25-35) Mean Corpuscular Hemoglobin Concent 33 g/dL (31-37) Red Cell Distribution Width 12.6 % (11.5-14.5) Platelet Count 195 x10^3/uL (140-400) Neutrophils (%) (Auto) 56 % (31-73) Lymphocytes (%) (Auto) 19 % (24-48) Monocytes (%) (Auto) 21 % (0-9) Eosinophils (%) (Auto) 3 % (0-3) Basophils (%) (Auto) 0 % (0-3) Neutrophils # (Auto) 3.5 x10^3uL (1.8-7.7) Lymphocytes # (Auto) 1.2 x10^3/uL (1.0-4.8) Monocytes # (Auto) 1.3 x10^3/uL (0.0-1.1) Eosinophils # (Auto) 0.2 x10^3/uL (0.0-0.7) Basophils # (Auto) 0.0 x10^3/uL (0.0-0.2) Sodium Level 133 mmol/L (136-145) Potassium Level 3.7 mmol/L (3.5-5.1) Chloride Level 97 mmol/L (98-107) Carbon Dioxide Level 26 mmol/L (21-32) Anion Gap 10 (6-14) Blood Urea Nitrogen 38 mg/dL (7-20) Creatinine 1.0 mg/dL (0.6-1.0) Estimated GFR (Cockcroft-Gault) 63.8 Glucose Level 244 mg/dL (70-99) Calcium Level 8.1 mg/dL (8.5-10.1) Test 07/19/18 14:08 07/19/18 18:40 07/19/18 23:49 07/20/18 05:46 Glucose (Fingerstick) 210 mg/dL (70-99) 219 mg/dL (70-99) 199 mg/dL (70-99) 234 mg/dL (70-99) Test 07/20/18 05:50 White Blood Count 6.7 x10^3/uL (4.0-11.0) Red Blood Count 3.49 x10^6/uL (3.50-5.40) Hemoglobin 11.2 g/dL (12.0-15.5) Hematocrit 33.4 % (36.0-47.0) Mean Corpuscular Volume 96 fL (79-100) Mean Corpuscular Hemoglobin 32 pg (25-35) Mean Corpuscular Hemoglobin Concent 34 g/dL (31-37) Red Cell Distribution Width 12.9 % (11.5-14.5) Platelet Count 221 x10^3/uL (140-400) Neutrophils (%) (Auto) 61 % (31-73) Lymphocytes (%) (Auto) 17 % (24-48) Monocytes (%) (Auto) 18 % (0-9) Eosinophils (%) (Auto) 4 % (0-3) Basophils (%) (Auto) 0 % (0-3) Neutrophils # (Auto) 4.1 x10^3uL (1.8-7.7) Lymphocytes # (Auto) 1.1 x10^3/uL (1.0-4.8) Monocytes # (Auto) 1.2 x10^3/uL (0.0-1.1) Eosinophils # (Auto) 0.2 x10^3/uL (0.0-0.7) Basophils # (Auto) 0.0 x10^3/uL (0.0-0.2) Sodium Level 135 mmol/L (136-145) Potassium Level 4.5 mmol/L (3.5-5.1) Chloride Level 98 mmol/L (98-107) Carbon Dioxide Level 28 mmol/L (21-32) Anion Gap 9 (6-14) Blood Urea Nitrogen 22 mg/dL (7-20) Creatinine 0.9 mg/dL (0.6-1.0) Estimated GFR (Cockcroft-Gault) 72.0 Glucose Level 248 mg/dL (70-99) Calcium Level 8.4 mg/dL (8.5-10.1) Laboratory Tests Test 07/19/18 14:08 07/19/18 18:40 07/19/18 23:49 07/20/18 05:46 Glucose (Fingerstick) 210 mg/dL (70-99) 219 mg/dL (70-99) 199 mg/dL (70-99) 234 mg/dL (70-99) Test 07/20/18 05:50 White Blood Count 6.7 x10^3/uL (4.0-11.0) Red Blood Count 3.49 x10^6/uL (3.50-5.40) Hemoglobin 11.2 g/dL (12.0-15.5) Hematocrit 33.4 % (36.0-47.0) Mean Corpuscular Volume 96 fL (79-100) Mean Corpuscular Hemoglobin 32 pg (25-35) Mean Corpuscular Hemoglobin Concent 34 g/dL (31-37) Red Cell Distribution Width 12.9 % (11.5-14.5) Platelet Count 221 x10^3/uL (140-400) Neutrophils (%) (Auto) 61 % (31-73) Lymphocytes (%) (Auto) 17 % (24-48) Monocytes (%) (Auto) 18 % (0-9) Eosinophils (%) (Auto) 4 % (0-3) Basophils (%) (Auto) 0 % (0-3) Neutrophils # (Auto) 4.1 x10^3uL (1.8-7.7) Lymphocytes # (Auto) 1.1 x10^3/uL (1.0-4.8) Monocytes # (Auto) 1.2 x10^3/uL (0.0-1.1) Eosinophils # (Auto) 0.2 x10^3/uL (0.0-0.7) Basophils # (Auto) 0.0 x10^3/uL (0.0-0.2) Sodium Level 135 mmol/L (136-145) Potassium Level 4.5 mmol/L (3.5-5.1) Chloride Level 98 mmol/L (98-107) Carbon Dioxide Level 28 mmol/L (21-32) Anion Gap 9 (6-14) Blood Urea Nitrogen 22 mg/dL (7-20) Creatinine 0.9 mg/dL (0.6-1.0) Estimated GFR (Cockcroft-Gault) 72.0 Glucose Level 248 mg/dL (70-99) Calcium Level 8.4 mg/dL (8.5-10.1) Microbiology 07/17/18 Urine Culture - Final, Complete 07/17/18 Urine Culture Result 1 ([facility]) - Final, Complete Vitals/I & O Vital Sign - Last 24 Hours 07/19/18 07/19/18 07/19/18 07/19/18 15:00 19:00 20:00 22:53 Temp 98.5 98.8 98.7 98.5 98.8 98.7 Pulse 87 66 89 Resp 12 18 18 B/P (MAP) 169/79 (109) 130/78 (95) 126/78 (94) Pulse Ox 97 98 97 O2 Delivery Room Air Room Air Room Air Room Air 07/20/18 07/20/18 03:00 07:00 Temp 99.5 99.1 99.5 99.1 Pulse 96 94 Resp 17 20 B/P (MAP) 165/78 (107) 149/69 (95) Pulse Ox 95 96 O2 Delivery Room Air Room Air Intake and Output 07/19/18 07/19/18 07/20/18 14:59 22:59 06:59 Intake Total 0 ml 0 ml Output Total 100 ml 500 ml Balance -100 ml 0 ml -500 ml Assessment SBO, decompressed, not clinically resolved. Plan of Care Note Continue suction, IVF's/ DARIA CARSON MD Jul 20, 2018 11:40
[2018-07-20] MEDS: ENOXAPARIN 40 MG/0.4 ML SYRINGE. SQ SCH (12:36)
--- NOTE | 2018-07-20 12:57 | PDOC ---
PROGRESS NOTES Subjective Subjective doing ok Objective Objective Vital Signs Date Time Temp Pulse Resp B/P (MAP) Pulse Ox O2 Delivery O2 Flow Rate FiO2 07/20/18 11:00 99.0 93 28 167/79 (108) 98 Room Air 99.0 Intake and Output 07/20/18 07:00 Intake Total 0 ml Output Total 600 ml Balance -600 ml Intake Oral 0 ml Output Urine Total 500 ml Gastric Drainage Total 100 ml # Voids 4 Physical Exam Abdomen: No tenderness Heart: Regular rate Extremities: No clubbing, No cyanosis General: Alert, Oriented X3 HEENT: Atraumatic, PERRLA Lungs: Clear to auscultation Neuro: Normal speech, Strength at 5/5 X4 ext Assessment Assessment SBO, KUB reviewed Plan Plan of Care SB series today Comment Review of Relevant I have reviewed the following items brandon (where applicable) has been applied. Labs Laboratory Tests Test 07/18/18 16:34 07/18/18 20:47 07/19/18 00:13 07/19/18 04:30 Glucose (Fingerstick) 248 mg/dL (70-99) 226 mg/dL (70-99) 222 mg/dL (70-99) White Blood Count 6.2 x10^3/uL (4.0-11.0) Red Blood Count 3.35 x10^6/uL (3.50-5.40) Hemoglobin 10.7 g/dL (12.0-15.5) Hematocrit 32.0 % (36.0-47.0) Mean Corpuscular Volume 95 fL (79-100) Mean Corpuscular Hemoglobin 32 pg (25-35) Mean Corpuscular Hemoglobin Concent 33 g/dL (31-37) Red Cell Distribution Width 12.6 % (11.5-14.5) Platelet Count 195 x10^3/uL (140-400) Neutrophils (%) (Auto) 56 % (31-73) Lymphocytes (%) (Auto) 19 % (24-48) Monocytes (%) (Auto) 21 % (0-9) Eosinophils (%) (Auto) 3 % (0-3) Basophils (%) (Auto) 0 % (0-3) Neutrophils # (Auto) 3.5 x10^3uL (1.8-7.7) Lymphocytes # (Auto) 1.2 x10^3/uL (1.0-4.8) Monocytes # (Auto) 1.3 x10^3/uL (0.0-1.1) Eosinophils # (Auto) 0.2 x10^3/uL (0.0-0.7) Basophils # (Auto) 0.0 x10^3/uL (0.0-0.2) Sodium Level 133 mmol/L (136-145) Potassium Level 3.7 mmol/L (3.5-5.1) Chloride Level 97 mmol/L (98-107) Carbon Dioxide Level 26 mmol/L (21-32) Anion Gap 10 (6-14) Blood Urea Nitrogen 38 mg/dL (7-20) Creatinine 1.0 mg/dL (0.6-1.0) Estimated GFR (Cockcroft-Gault) 63.8 Glucose Level 244 mg/dL (70-99) Calcium Level 8.1 mg/dL (8.5-10.1) Test 07/19/18 14:08 07/19/18 18:40 07/19/18 23:49 07/20/18 05:46 Glucose (Fingerstick) 210 mg/dL (70-99) 219 mg/dL (70-99) 199 mg/dL (70-99) 234 mg/dL (70-99) Test 07/20/18 05:50 07/20/18 11:50 White Blood Count 6.7 x10^3/uL (4.0-11.0) Red Blood Count 3.49 x10^6/uL (3.50-5.40) Hemoglobin 11.2 g/dL (12.0-15.5) Hematocrit 33.4 % (36.0-47.0) Mean Corpuscular Volume 96 fL (79-100) Mean Corpuscular Hemoglobin 32 pg (25-35) Mean Corpuscular Hemoglobin Concent 34 g/dL (31-37) Red Cell Distribution Width 12.9 % (11.5-14.5) Platelet Count 221 x10^3/uL (140-400) Neutrophils (%) (Auto) 61 % (31-73) Lymphocytes (%) (Auto) 17 % (24-48) Monocytes (%) (Auto) 18 % (0-9) Eosinophils (%) (Auto) 4 % (0-3) Basophils (%) (Auto) 0 % (0-3) Neutrophils # (Auto) 4.1 x10^3uL (1.8-7.7) Lymphocytes # (Auto) 1.1 x10^3/uL (1.0-4.8) Monocytes # (Auto) 1.2 x10^3/uL (0.0-1.1) Eosinophils # (Auto) 0.2 x10^3/uL (0.0-0.7) Basophils # (Auto) 0.0 x10^3/uL (0.0-0.2) Sodium Level 135 mmol/L (136-145) Potassium Level 4.5 mmol/L (3.5-5.1) Chloride Level 98 mmol/L (98-107) Carbon Dioxide Level 28 mmol/L (21-32) Anion Gap 9 (6-14) Blood Urea Nitrogen 22 mg/dL (7-20) Creatinine 0.9 mg/dL (0.6-1.0) Estimated GFR (Cockcroft-Gault) 72.0 Glucose Level 248 mg/dL (70-99) Calcium Level 8.4 mg/dL (8.5-10.1) Glucose (Fingerstick) 204 mg/dL (70-99) Laboratory Tests Test 07/19/18 14:08 07/19/18 18:40 07/19/18 23:49 07/20/18 05:46 Glucose (Fingerstick) 210 mg/dL (70-99) 219 mg/dL (70-99) 199 mg/dL (70-99) 234 mg/dL (70-99) Test 07/20/18 05:50 07/20/18 11:50 White Blood Count 6.7 x10^3/uL (4.0-11.0) Red Blood Count 3.49 x10^6/uL (3.50-5.40) Hemoglobin 11.2 g/dL (12.0-15.5) Hematocrit 33.4 % (36.0-47.0) Mean Corpuscular Volume 96 fL (79-100) Mean Corpuscular Hemoglobin 32 pg (25-35) Mean Corpuscular Hemoglobin Concent 34 g/dL (31-37) Red Cell Distribution Width 12.9 % (11.5-14.5) Platelet Count 221 x10^3/uL (140-400) Neutrophils (%) (Auto) 61 % (31-73) Lymphocytes (%) (Auto) 17 % (24-48) Monocytes (%) (Auto) 18 % (0-9) Eosinophils (%) (Auto) 4 % (0-3) Basophils (%) (Auto) 0 % (0-3) Neutrophils # (Auto) 4.1 x10^3uL (1.8-7.7) Lymphocytes # (Auto) 1.1 x10^3/uL (1.0-4.8) Monocytes # (Auto) 1.2 x10^3/uL (0.0-1.1) Eosinophils # (Auto) 0.2 x10^3/uL (0.0-0.7) Basophils # (Auto) 0.0 x10^3/uL (0.0-0.2) Sodium Level 135 mmol/L (136-145) Potassium Level 4.5 mmol/L (3.5-5.1) Chloride Level 98 mmol/L (98-107) Carbon Dioxide Level 28 mmol/L (21-32) Anion Gap 9 (6-14) Blood Urea Nitrogen 22 mg/dL (7-20) Creatinine 0.9 mg/dL (0.6-1.0) Estimated GFR (Cockcroft-Gault) 72.0 Glucose Level 248 mg/dL (70-99) Calcium Level 8.4 mg/dL (8.5-10.1) Glucose (Fingerstick) 204 mg/dL (70-99) Microbiology 07/17/18 Urine Culture - Final, Complete 07/17/18 Urine Culture Result 1 ([facility]) - Final, Complete Medications Current Medications Sodium Chloride 1,000 ml @ 60 mls/hr [id number] IV ; Start 07/15/18 at 17:30; Stop 07/16/18 at 10:16; Status DC Insulin Human Lispro (HumaLOG) 0-5 UNITS TIDWMEALS SQ Last administered on 07/16at 12:20; Start 07/15/18 at 17:30; Stop 07/19/18 at 10:59; Status DC Dextrose (Dextrose 50%-Water Syringe) 12.5 gm PRN Q15MIN PRN IV SEE COMMENTS; Start 07/15/18 at 16:30 Ondansetron HCl (Zofran) 4 mg PRN Q6HRS PRN IV NAUSEA/VOMITING Last administered on 07/16/18at 11:43; Start 07/15/18 at 16:30 Acetaminophen (Tylenol) 325 mg PRN Q4HRS PRN PO MILD PAIN / TEMP; Start at 16:30; Stop 07/18/18 at 10:44; Status DC Acetaminophen (Tylenol) 650 mg PRN Q4HRS PRN PO MILD PAIN/TEMP, 2ND CHOICE; Start 07/15/18 at 16:30; Stop 07/18/18 at 10:44; Status DC Aspirin (Ecotrin) 81 mg DAILYWBKFT PO Last administered on 07/16/18 08:51; Start 07/16/18 at 08:00; Stop 07/18/18 at 10:44; Status DC Carvedilol (Coreg) 25 mg BIDWMEALS PO Last administered on 07/16/18 08:51; Start 07/15/18 at 17:30; Stop 07/18/18 at 10:44; Status DC Amlodipine Besylate (Norvasc) 5 mg DAILY PO Last administered on 07/16/18 08: 51; Start 07/16/18 at 09:00; Stop 07/18/18 at 10:44; Status DC Al Hydroxide/Mg Hydroxide (Mylanta Plus Xs) 30 ml PRN Q2HR PRN PO HEARTBURN / GAS Last administered on 07/16/18at 11:42; Start 07/15/18 at 16:30; Stop at 10:44; Status DC Pantoprazole Sodium (Protonix) 40 mg DAILYAC PO Last administered on 07/16/18 08:51; Start 07/16/18 at 07:30; Stop 07/16/18 at 13:18; Status DC Sucralfate (Carafate) 1 gm TIDWMEALHC PO Last administered on 07/16/18at 12:17; Start 07/15/18 at 22:00; Stop 07/18/18 at 10:44; Status DC Sodium Chloride 1,000 ml @ 75 mls/hr [id number] IV Last administered on at 01:19; Start 07/15/18 at 21:45; Stop 07/17/18 at 11:51; Status DC Iohexol (Omnipaque 240 Mg/ml) 30 ml 1X ONCE PO Last administered on 07/16/18at 10:30; Start 07/16/18 at 10:30; Stop 07/16/18 at 10:31; Status DC Info (CONTRAST GIVEN -- Rx MONITORING) 1 each PRN DAILY PRN MC SEE COMMENTS; Start 07/16/18 at 10:30; Stop 07/18/18 at 10:29; Status DC Pantoprazole Sodium (PROTONIX VIAL for IV PUSH) 40 mg 1X ONCE IVP ; Start 07/17 at 07:30; Stop 07/17/18 at 07:30; Status DC Pantoprazole Sodium (PROTONIX VIAL for IV PUSH) 40 mg DAILYAC IVP Last administered on 07/20/18at 07:30; Start 07/17/18 at 07:30 Lorazepam (Ativan) 0.5 mg PRN QHS PRN IV ANXIETY / AGITATION Last administered on 07/16/18at 21:29; Start 07/16/18 at 18:15 Potassium Chloride/Dextrose/ Sod Cl 1,000 ml @ 100 mls/hr Q10H IV Last administered on 07/17/18at 12:13; Start 07/17/18 at 12:00; Stop 07/17/18 at 12:18 ; Status DC Amino Acids/ Glycerin/ Electrolytes 1,000 ml @ 80 mls/hr [id number] IV Last administered on 07/20/18at 09:24; Start 07/17/18 at 13:00 Enoxaparin Sodium (Lovenox 30mg Syringe) 30 mg Q24H SQ Last administered on at 13:04; Start 07/18/18 at 12:00; Stop 07/19/18 at 10:59; Status DC Clonidine HCl (Catapres Tts-2) 1 patch Fr TD ; Start 08/18/18 at 11:00; Stop at 11:00; Status DC Hydralazine HCl (Apresoline Inj) 10 mg PRN Q6HRS PRN IVP ELEVATED BP, SEE COMMENTS Last administered on 07/18/18at 11:06; Start 07/18/18 at 10:45 Clonidine HCl (Catapres Tts-2) 1 patch Fr TD Last administered on 07/18/18at 14: 59; Start 07/18/18 at 14:00 Enoxaparin Sodium (Lovenox 40mg Syringe) 40 mg Q24H SQ Last administered on at 12:36; Start 07/19/18 at 12:00 Insulin Human Lispro (HumaLOG) 0-6 UNITS BG 300-39... TIDWMEALS SQ ; Start 07/19 at 12:00; Stop 07/19/18 at 19:17; Status DC Insulin Human Lispro (HumaLOG) 0-6 UNITS BG 300-39... Q6HRS SQ Last administered on 07/20/18at 06:11; Start 07/20/18 at 00:00 Bisacodyl (Dulcolax Supp) 10 mg 1X ONCE KS ; Start 07/20/18 at 10:45; Stop at 10:46; Status DC Active Scripts Active Pravastatin Sodium 40 Mg Tablet 1 Tab PO QHS 30 Days Cozaar (Losartan Potassium) 50 Mg Tablet 100 Mg PO DAILY 30 Days Klor-Con 10 (Potassium Chloride) 10 Meq Tablet.er 10 Meq PO DAILYWBKFT 30 Days Reported Hydrochlorothiazide Capsule (Hydrochlorothiazide) 12.5 Mg Capsule 12.5 Mg PO DAILY Levemir (Insulin Detemir) 100 Unit/1 Ml Vial 6 Unit SQ HS Centrum Silver Tablet (Multivits-Min/Fa/Lycopene/Lut) 1 Each Tablet 1 Each PO DAILY Aspirin 81 Mg Tab.chew 1 Tab PO DAILY Metformin Hcl 500 Mg Tablet 500 Mg PO HS Metformin Hcl 1,000 Mg Tablet 1,000 Mg PO DAILYWBKFT Carvedilol 25 Mg Tablet 25 Mg PO BIDWMEALS Vitals/I & O Vital Sign - Last 24 Hours 07/19/18 07/19/18 07/19/18 07/19/18 15:00 19:00 20:00 22:53 Temp 98.5 98.8 98.7 98.5 98.8 98.7 Pulse 87 66 89 Resp 12 18 18 B/P (MAP) 169/79 (109) 130/78 (95) 126/78 (94) Pulse Ox 97 98 97 O2 Delivery Room Air Room Air Room Air Room Air 07/20/18 07/20/18 07/20/18 03:00 07:00 11:00 Temp 99.5 99.1 99.0 99.5 99.1 99.0 Pulse 96 94 93 Resp 17 20 28 B/P (MAP) 165/78 (107) 149/69 (95) 167/79 (108) Pulse Ox 95 96 98 O2 Delivery Room Air Room Air Room Air Intake and Output 07/19/18 07/19/18 07/20/18 15:00 23:00 07:00 Intake Total 0 ml 0 ml Output Total 100 ml 500 ml Balance -100 ml 0 ml -500 ml MIN [place] MD Jul 20, 2018 12:57
[2018-07-20] MEDS ORDERED: IOHEXOL 300 MG/ML 100ML VIAL. PO ONE (13:00)
[2018-07-20] MEDS ORDERED: CONTRAST GIVEN. MC PRN (13:15)
[2018-07-20 15:26] VITALS: BP 152/64
[2018-07-20 19:00] VITALS: BP 158/79
--- NOTE | 2018-07-20 20:17 | RAD ---
Examination: KUB History: NG PLACEMENT Comparison/Correlation: None Findings: Frontal view of the abdomen was obtained. Nasogastric tube is identified terminating at the expected site of the distal pylorus. Contrast is noted within stomach and small bowel. It is not definitely seen involving the ascending colon. Impression: NG tube in place. Electronically signed by: Santiago Lucero MD (07/20/2018 8:12 PM) [facility]
[2018-07-20 23:00] VITALS: BP 166/86
[2018-07-21 03:00] VITALS: BP 173/83
[2018-07-21] MEDS: INSULIN LISPRO 300 UNITS/3 ML INSULN.PEN. SQ SCH ×4 (06:00→18:35)
[2018-07-21 06:26] LABS: BASO % 1 % (0-3); EOS # 0.3 x10^3/uL (0.0-0.7); EOS % 3 % (0-3); HEMATOCRIT 30.6 % (36.0-47.0); HEMOGLOBIN 10.5 g/dL (12.0-15.5); LYMPH # 1.5 x10^3/uL (1.0-4.8); LYMPH % 20 % (24-48); MEAN CORPUSCULAR HEMOGLOBIN 33 pg (25-35); MEAN CORPUSCULAR HGB CONC 34 g/dL (31-37); MEAN CORPUSCULAR VOLUME 95 fL (79-100); MONO # 1.4 x10^3/uL (0.0-1.1); MONO % 18 % (0-9); NEUT # 4.6 x10^3uL (1.8-7.7); NEUT % 59 % (31-73); PLATELET COUNT 220 x10^3/uL (140-400); RED BLOOD COUNT 3.22 x10^6/uL (3.50-5.40); RED CELL DISTRIBUTION WIDTH 12.9 % (11.5-14.5); WHITE BLOOD COUNT 7.8 x10^3/uL (4.0-11.0)
[2018-07-21 06:41] LABS: ALBUMIN 2.3 g/dL (3.4-5.0); ALBUMIN/GLOBULIN RATIO 0.6 (1.0-1.7); CALCIUM 8.6 mg/dL (8.5-10.1); CREATININE 0.9 mg/dL (0.6-1.0); MAGNESIUM 2.2 mg/dL (1.8-2.4); TOTAL BILIRUBIN 0.7 mg/dL (0.2-1.0); TOTAL PROTEIN 6.3 g/dL (6.4-8.2)
[2018-07-21 07:00] VITALS: BP 164/81
--- NOTE | 2018-07-21 08:40 | RAD ---
Small bowel series, 07/20/2018: HISTORY: Small bowel obstruction The study was begun on 07/20/2018 with imaging extended into the a.m. of 07/21/2018. The study was performed utilizing nonionic contrast. Serial digital images were obtained. No fluoroscopy was performed. An NG tube extends into the body of the stomach. The stomach and duodenum are unremarkable. There is mild distention of mid small bowel loops. No fold thickening is evident. There are loops of distal small bowel which are not dilated. These become visible at 6 hours. Contrast is present in the right colon at 8 hours. The precise point of obstruction/transition is not visible. At 19 hours much of the contrast has passed into the nondilated colon. There is some residual contrast within mildly dilated small bowel at 19 hours. IMPRESSION: Partial mid to distal small bowel obstruction. Electronically signed by: Doug Melton MD (07/21/2018 8:37 AM) [facility]
--- NOTE | 2018-07-21 08:50 | PDOC ---
[facility] [employer] 07/21/18 0850: SURGICAL PROGRESS NOTE Subjective large stool this AM Vital Signs Vital Signs Date Time Temp Pulse Resp B/P (MAP) Pulse Ox O2 Delivery O2 Flow Rate FiO2 07/21/18 07:00 99.2 91 18 164/81 (108) 98 Room Air 99.2 I&O Intake and Output 07/21/18 07:00 Intake Total 1000 ml Output Total 1403 ml Balance -403 ml Intake Oral 0 ml IV Total 1000 ml Output Urine Total 3 ml Drainage Total 1400 ml # Voids 1 # Bowel Movements 3 General: Alert, Cooperative, No acute distress Abdomen: Soft, Other (ND) Labs Laboratory Tests Test 07/19/18 14:08 07/19/18 18:40 07/19/18 23:49 07/20/18 05:46 Glucose (Fingerstick) 210 mg/dL (70-99) 219 mg/dL (70-99) 199 mg/dL (70-99) 234 mg/dL (70-99) Test 07/20/18 05:50 07/20/18 11:50 07/20/18 17:56 07/20/18 23:26 White Blood Count 6.7 x10^3/uL (4.0-11.0) Red Blood Count 3.49 x10^6/uL (3.50-5.40) Hemoglobin 11.2 g/dL (12.0-15.5) Hematocrit 33.4 % (36.0-47.0) Mean Corpuscular Volume 96 fL (79-100) Mean Corpuscular Hemoglobin 32 pg (25-35) Mean Corpuscular Hemoglobin Concent 34 g/dL (31-37) Red Cell Distribution Width 12.9 % (11.5-14.5) Platelet Count 221 x10^3/uL (140-400) Neutrophils (%) (Auto) 61 % (31-73) Lymphocytes (%) (Auto) 17 % (24-48) Monocytes (%) (Auto) 18 % (0-9) Eosinophils (%) (Auto) 4 % (0-3) Basophils (%) (Auto) 0 % (0-3) Neutrophils # (Auto) 4.1 x10^3uL (1.8-7.7) Lymphocytes # (Auto) 1.1 x10^3/uL (1.0-4.8) Monocytes # (Auto) 1.2 x10^3/uL (0.0-1.1) Eosinophils # (Auto) 0.2 x10^3/uL (0.0-0.7) Basophils # (Auto) 0.0 x10^3/uL (0.0-0.2) Sodium Level 135 mmol/L (136-145) Potassium Level 4.5 mmol/L (3.5-5.1) Chloride Level 98 mmol/L (98-107) Carbon Dioxide Level 28 mmol/L (21-32) Anion Gap 9 (6-14) Blood Urea Nitrogen 22 mg/dL (7-20) Creatinine 0.9 mg/dL (0.6-1.0) Estimated GFR (Cockcroft-Gault) 72.0 Glucose Level 248 mg/dL (70-99) Calcium Level 8.4 mg/dL (8.5-10.1) Glucose (Fingerstick) 204 mg/dL (70-99) 291 mg/dL (70-99) 231 mg/dL (70-99) Test 07/21/18 05:55 07/21/18 06:08 White Blood Count 7.8 x10^3/uL (4.0-11.0) Red Blood Count 3.22 x10^6/uL (3.50-5.40) Hemoglobin 10.5 g/dL (12.0-15.5) Hematocrit 30.6 % (36.0-47.0) Mean Corpuscular Volume 95 fL (79-100) Mean Corpuscular Hemoglobin 33 pg (25-35) Mean Corpuscular Hemoglobin Concent 34 g/dL (31-37) Red Cell Distribution Width 12.9 % (11.5-14.5) Platelet Count 220 x10^3/uL (140-400) Neutrophils (%) (Auto) 59 % (31-73) Lymphocytes (%) (Auto) 20 % (24-48) Monocytes (%) (Auto) 18 % (0-9) Eosinophils (%) (Auto) 3 % (0-3) Basophils (%) (Auto) 1 % (0-3) Neutrophils # (Auto) 4.6 x10^3uL (1.8-7.7) Lymphocytes # (Auto) 1.5 x10^3/uL (1.0-4.8) Monocytes # (Auto) 1.4 x10^3/uL (0.0-1.1) Eosinophils # (Auto) 0.3 x10^3/uL (0.0-0.7) Basophils # (Auto) 0.0 x10^3/uL (0.0-0.2) Sodium Level 131 mmol/L (136-145) Potassium Level 4.0 mmol/L (3.5-5.1) Chloride Level 98 mmol/L (98-107) Carbon Dioxide Level 28 mmol/L (21-32) Anion Gap 5 (6-14) Blood Urea Nitrogen 25 mg/dL (7-20) Creatinine 0.9 mg/dL (0.6-1.0) Estimated GFR (Cockcroft-Gault) 72.0 BUN/Creatinine Ratio 28 (6-20) Glucose Level 249 mg/dL (70-99) Calcium Level 8.6 mg/dL (8.5-10.1) Magnesium Level 2.2 mg/dL (1.8-2.4) Total Bilirubin 0.7 mg/dL (0.2-1.0) Aspartate Amino Transf (AST/SGOT) 18 U/L (15-37) Alanine Aminotransferase (ALT/SGPT) 15 U/L (14-59) Alkaline Phosphatase 59 U/L (46-116) Total Protein 6.3 g/dL (6.4-8.2) Albumin 2.3 g/dL (3.4-5.0) Albumin/Globulin Ratio 0.6 (1.0-1.7) Glucose (Fingerstick) 228 mg/dL (70-99) Laboratory Tests Test 07/20/18 11:50 07/20/18 17:56 07/20/18 23:26 07/21/18 05:55 Glucose (Fingerstick) 204 mg/dL (70-99) 291 mg/dL (70-99) 231 mg/dL (70-99) White Blood Count 7.8 x10^3/uL (4.0-11.0) Red Blood Count 3.22 x10^6/uL (3.50-5.40) Hemoglobin 10.5 g/dL (12.0-15.5) Hematocrit 30.6 % (36.0-47.0) Mean Corpuscular Volume 95 fL (79-100) Mean Corpuscular Hemoglobin 33 pg (25-35) Mean Corpuscular Hemoglobin Concent 34 g/dL (31-37) Red Cell Distribution Width 12.9 % (11.5-14.5) Platelet Count 220 x10^3/uL (140-400) Neutrophils (%) (Auto) 59 % (31-73) Lymphocytes (%) (Auto) 20 % (24-48) Monocytes (%) (Auto) 18 % (0-9) Eosinophils (%) (Auto) 3 % (0-3) Basophils (%) (Auto) 1 % (0-3) Neutrophils # (Auto) 4.6 x10^3uL (1.8-7.7) Lymphocytes # (Auto) 1.5 x10^3/uL (1.0-4.8) Monocytes # (Auto) 1.4 x10^3/uL (0.0-1.1) Eosinophils # (Auto) 0.3 x10^3/uL (0.0-0.7) Basophils # (Auto) 0.0 x10^3/uL (0.0-0.2) Sodium Level 131 mmol/L (136-145) Potassium Level 4.0 mmol/L (3.5-5.1) Chloride Level 98 mmol/L (98-107) Carbon Dioxide Level 28 mmol/L (21-32) Anion Gap 5 (6-14) Blood Urea Nitrogen 25 mg/dL (7-20) Creatinine 0.9 mg/dL (0.6-1.0) Estimated GFR (Cockcroft-Gault) 72.0 BUN/Creatinine Ratio 28 (6-20) Glucose Level 249 mg/dL (70-99) Calcium Level 8.6 mg/dL (8.5-10.1) Magnesium Level 2.2 mg/dL (1.8-2.4) Total Bilirubin 0.7 mg/dL (0.2-1.0) Aspartate Amino Transf (AST/SGOT) 18 U/L (15-37) Alanine Aminotransferase (ALT/SGPT) 15 U/L (14-59) Alkaline Phosphatase 59 U/L (46-116) Total Protein 6.3 g/dL (6.4-8.2) Albumin 2.3 g/dL (3.4-5.0) Albumin/Globulin Ratio 0.6 (1.0-1.7) Test 07/21/18 06:08 Glucose (Fingerstick) 228 mg/dL (70-99) Assessment/Plan large stool this AM will try clamping NG today will review with CECI Waters MD 07/21/18 1706: SURGICAL PROGRESS NOTE Assessment/Plan agree with above will check KUB in the AM IRVING DENNEY APRN Jul 21, 2018 08:50 CECI STEVE MD Jul 21, 2018 17:06
--- NOTE | 2018-07-21 09:32 | PDOC ---
Subjective: Subjective: On the commode - doesn't want to talk right now and would like me to come back later. Objective: Objective: Reviewed w/ RN - more NG output after tube adjusted (again). Reviewed other notes - large stool this a.m., plans to clamp NGT. Remains on IV PPI and PPN. Vital Signs: Vital Signs Date Time Temp Pulse Resp B/P (MAP) Pulse Ox O2 Delivery O2 Flow Rate FiO2 07/21/18 07:00 99.2 91 18 164/81 (108) 98 Room Air 99.2 Labs: Laboratory Tests Test 07/20/18 11:50 07/20/18 17:56 07/20/18 23:26 07/21/18 05:55 Glucose (Fingerstick) 204 mg/dL 291 mg/dL 231 mg/dL White Blood Count 7.8 x10^3/uL Red Blood Count 3.22 x10^6/uL Hemoglobin 10.5 g/dL Hematocrit 30.6 % Mean Corpuscular Volume 95 fL Mean Corpuscular Hemoglobin 33 pg Mean Corpuscular Hemoglobin Concent 34 g/dL Red Cell Distribution Width 12.9 % Platelet Count 220 x10^3/uL Neutrophils (%) (Auto) 59 % Lymphocytes (%) (Auto) 20 % Monocytes (%) (Auto) 18 % Eosinophils (%) (Auto) 3 % Basophils (%) (Auto) 1 % Neutrophils # (Auto) 4.6 x10^3uL Lymphocytes # (Auto) 1.5 x10^3/uL Monocytes # (Auto) 1.4 x10^3/uL Eosinophils # (Auto) 0.3 x10^3/uL Basophils # (Auto) 0.0 x10^3/uL Sodium Level 131 mmol/L Potassium Level 4.0 mmol/L Chloride Level 98 mmol/L Carbon Dioxide Level 28 mmol/L Anion Gap 5 Blood Urea Nitrogen 25 mg/dL Creatinine 0.9 mg/dL Estimated GFR (Cockcroft-Gault) 72.0 BUN/Creatinine Ratio 28 Glucose Level 249 mg/dL Calcium Level 8.6 mg/dL Magnesium Level 2.2 mg/dL Total Bilirubin 0.7 mg/dL Aspartate Amino Transf (AST/SGOT) 18 U/L Alanine Aminotransferase (ALT/SGPT) 15 U/L Alkaline Phosphatase 59 U/L Total Protein 6.3 g/dL Albumin 2.3 g/dL Albumin/Globulin Ratio 0.6 Test 07/21/18 06:08 Glucose (Fingerstick) 228 mg/dL URINE CULTURE Final Final report URINE CULTURE RES 1 Final No growth Imaging: SBS 07/20 IMPRESSION: Partial mid to distal small bowel obstruction. KUB 07/20 Impression: NG tube in place. PE: GEN: NAD - on commode HEENT: NGT NEURO/PSYCH: A & O 3, quiet A/P: Partial SBO Anemia - stable -- Apparently stooled. Plans to clamp NG, observe w/ this. DAMON EATON Jul 21, 2018 09:32
[2018-07-21] MEDS: PANTOPRAZOLE IV PUSH 40 MG VIAL. IVP SCH (10:06)
--- NOTE | 2018-07-21 10:18 | PDOC ---
PROGRESS NOTES Subjective Subjective discussed with patient and daughter. SBFT showed partial distal SBO. had a BM today. lab reviewed. bp and blood sugars are hign NG just clamped per surgery. Objective Objective Vital Signs Date Time Temp Pulse Resp B/P (MAP) Pulse Ox O2 Delivery O2 Flow Rate FiO2 07/21/18 08:00 Room Air 07/21/18 07:00 99.2 91 18 164/81 (108) 98 99.2 Intake and Output 07/21/18 07:00 Intake Total 1000 ml Output Total 1403 ml Balance -403 ml Intake Oral 0 ml IV Total 1000 ml Output Urine Total 3 ml Drainage Total 1400 ml # Voids 1 # Bowel Movements 3 Physical Exam Abdomen: Normal bowel sounds, Soft Heart: Regular rate, Normal S1, Normal S2 Extremities: No edema General: Alert HEENT: Atraumatic Lungs: Clear to auscultation Neuro: Normal gait Psych/Mental Status: Mental status NL Skin: No rashes Assessment Assessment 1. Acute kidney injury secondary to dehydration resolved 2. Partial distal SBO. 3. Hypertension 4. Diabetes mellitus type 2 5. Gastroesophageal reflux disease. 6. Hyperlipidemia. 7. Atypical chest pain resolved secondary pulmonary hypertension suspect due to obe Plan Plan of Care clamp NG tube continue PPN adjust bp meds and insulin sliding scale Comment Review of Relevant I have reviewed the following items brandon (where applicable) has been applied. Labs Laboratory Tests Test 07/19/18 14:08 07/19/18 18:40 07/19/18 23:49 07/20/18 05:46 Glucose (Fingerstick) 210 mg/dL (70-99) 219 mg/dL (70-99) 199 mg/dL (70-99) 234 mg/dL (70-99) Test 07/20/18 05:50 07/20/18 11:50 07/20/18 17:56 07/20/18 23:26 White Blood Count 6.7 x10^3/uL (4.0-11.0) Red Blood Count 3.49 x10^6/uL (3.50-5.40) Hemoglobin 11.2 g/dL (12.0-15.5) Hematocrit 33.4 % (36.0-47.0) Mean Corpuscular Volume 96 fL (79-100) Mean Corpuscular Hemoglobin 32 pg (25-35) Mean Corpuscular Hemoglobin Concent 34 g/dL (31-37) Red Cell Distribution Width 12.9 % (11.5-14.5) Platelet Count 221 x10^3/uL (140-400) Neutrophils (%) (Auto) 61 % (31-73) Lymphocytes (%) (Auto) 17 % (24-48) Monocytes (%) (Auto) 18 % (0-9) Eosinophils (%) (Auto) 4 % (0-3) Basophils (%) (Auto) 0 % (0-3) Neutrophils # (Auto) 4.1 x10^3uL (1.8-7.7) Lymphocytes # (Auto) 1.1 x10^3/uL (1.0-4.8) Monocytes # (Auto) 1.2 x10^3/uL (0.0-1.1) Eosinophils # (Auto) 0.2 x10^3/uL (0.0-0.7) Basophils # (Auto) 0.0 x10^3/uL (0.0-0.2) Sodium Level 135 mmol/L (136-145) Potassium Level 4.5 mmol/L (3.5-5.1) Chloride Level 98 mmol/L (98-107) Carbon Dioxide Level 28 mmol/L (21-32) Anion Gap 9 (6-14) Blood Urea Nitrogen 22 mg/dL (7-20) Creatinine 0.9 mg/dL (0.6-1.0) Estimated GFR (Cockcroft-Gault) 72.0 Glucose Level 248 mg/dL (70-99) Calcium Level 8.4 mg/dL (8.5-10.1) Glucose (Fingerstick) 204 mg/dL (70-99) 291 mg/dL (70-99) 231 mg/dL (70-99) Test 07/21/18 05:55 07/21/18 06:08 White Blood Count 7.8 x10^3/uL (4.0-11.0) Red Blood Count 3.22 x10^6/uL (3.50-5.40) Hemoglobin 10.5 g/dL (12.0-15.5) Hematocrit 30.6 % (36.0-47.0) Mean Corpuscular Volume 95 fL (79-100) Mean Corpuscular Hemoglobin 33 pg (25-35) Mean Corpuscular Hemoglobin Concent 34 g/dL (31-37) Red Cell Distribution Width 12.9 % (11.5-14.5) Platelet Count 220 x10^3/uL (140-400) Neutrophils (%) (Auto) 59 % (31-73) Lymphocytes (%) (Auto) 20 % (24-48) Monocytes (%) (Auto) 18 % (0-9) Eosinophils (%) (Auto) 3 % (0-3) Basophils (%) (Auto) 1 % (0-3) Neutrophils # (Auto) 4.6 x10^3uL (1.8-7.7) Lymphocytes # (Auto) 1.5 x10^3/uL (1.0-4.8) Monocytes # (Auto) 1.4 x10^3/uL (0.0-1.1) Eosinophils # (Auto) 0.3 x10^3/uL (0.0-0.7) Basophils # (Auto) 0.0 x10^3/uL (0.0-0.2) Sodium Level 131 mmol/L (136-145) Potassium Level 4.0 mmol/L (3.5-5.1) Chloride Level 98 mmol/L (98-107) Carbon Dioxide Level 28 mmol/L (21-32) Anion Gap 5 (6-14) Blood Urea Nitrogen 25 mg/dL (7-20) Creatinine 0.9 mg/dL (0.6-1.0) Estimated GFR (Cockcroft-Gault) 72.0 BUN/Creatinine Ratio 28 (6-20) Glucose Level 249 mg/dL (70-99) Calcium Level 8.6 mg/dL (8.5-10.1) Magnesium Level 2.2 mg/dL (1.8-2.4) Total Bilirubin 0.7 mg/dL (0.2-1.0) Aspartate Amino Transf (AST/SGOT) 18 U/L (15-37) Alanine Aminotransferase (ALT/SGPT) 15 U/L (14-59) Alkaline Phosphatase 59 U/L (46-116) Total Protein 6.3 g/dL (6.4-8.2) Albumin 2.3 g/dL (3.4-5.0) Albumin/Globulin Ratio 0.6 (1.0-1.7) Glucose (Fingerstick) 228 mg/dL (70-99) Laboratory Tests Test 07/20/18 11:50 07/20/18 17:56 07/20/18 23:26 07/21/18 05:55 Glucose (Fingerstick) 204 mg/dL (70-99) 291 mg/dL (70-99) 231 mg/dL (70-99) White Blood Count 7.8 x10^3/uL (4.0-11.0) Red Blood Count 3.22 x10^6/uL (3.50-5.40) Hemoglobin 10.5 g/dL (12.0-15.5) Hematocrit 30.6 % (36.0-47.0) Mean Corpuscular Volume 95 fL (79-100) Mean Corpuscular Hemoglobin 33 pg (25-35) Mean Corpuscular Hemoglobin Concent 34 g/dL (31-37) Red Cell Distribution Width 12.9 % (11.5-14.5) Platelet Count 220 x10^3/uL (140-400) Neutrophils (%) (Auto) 59 % (31-73) Lymphocytes (%) (Auto) 20 % (24-48) Monocytes (%) (Auto) 18 % (0-9) Eosinophils (%) (Auto) 3 % (0-3) Basophils (%) (Auto) 1 % (0-3) Neutrophils # (Auto) 4.6 x10^3uL (1.8-7.7) Lymphocytes # (Auto) 1.5 x10^3/uL (1.0-4.8) Monocytes # (Auto) 1.4 x10^3/uL (0.0-1.1) Eosinophils # (Auto) 0.3 x10^3/uL (0.0-0.7) Basophils # (Auto) 0.0 x10^3/uL (0.0-0.2) Sodium Level 131 mmol/L (136-145) Potassium Level 4.0 mmol/L (3.5-5.1) Chloride Level 98 mmol/L (98-107) Carbon Dioxide Level 28 mmol/L (21-32) Anion Gap 5 (6-14) Blood Urea Nitrogen 25 mg/dL (7-20) Creatinine 0.9 mg/dL (0.6-1.0) Estimated GFR (Cockcroft-Gault) 72.0 BUN/Creatinine Ratio 28 (6-20) Glucose Level 249 mg/dL (70-99) Calcium Level 8.6 mg/dL (8.5-10.1) Magnesium Level 2.2 mg/dL (1.8-2.4) Total Bilirubin 0.7 mg/dL (0.2-1.0) Aspartate Amino Transf (AST/SGOT) 18 U/L (15-37) Alanine Aminotransferase (ALT/SGPT) 15 U/L (14-59) Alkaline Phosphatase 59 U/L (46-116) Total Protein 6.3 g/dL (6.4-8.2) Albumin 2.3 g/dL (3.4-5.0) Albumin/Globulin Ratio 0.6 (1.0-1.7) Test 07/21/18 06:08 Glucose (Fingerstick) 228 mg/dL (70-99) Microbiology 07/17/18 Urine Culture - Final, Complete 07/17/18 Urine Culture Result 1 ([facility]) - Final, Complete Medications Current Medications Sodium Chloride 1,000 ml @ 60 mls/hr [id number] IV ; Start 07/15/18 at 17:30; Stop 07/16/18 at 10:16; Status DC Insulin Human Lispro (HumaLOG) 0-5 UNITS TIDWMEALS SQ Last administered on 07/16at 12:20; Start 07/15/18 at 17:30; Stop 07/19/18 at 10:59; Status DC Dextrose (Dextrose 50%-Water Syringe) 12.5 gm PRN Q15MIN PRN IV SEE COMMENTS; Start 07/15/18 at 16:30 Ondansetron HCl (Zofran) 4 mg PRN Q6HRS PRN IV NAUSEA/VOMITING Last administered on 07/16/18at 11:43; Start 07/15/18 at 16:30 Acetaminophen (Tylenol) 325 mg PRN Q4HRS PRN PO MILD PAIN / TEMP; Start at 16:30; Stop 07/18/18 at 10:44; Status DC Acetaminophen (Tylenol) 650 mg PRN Q4HRS PRN PO MILD PAIN/TEMP, 2ND CHOICE; Start 07/15/18 at 16:30; Stop 07/18/18 at 10:44; Status DC Aspirin (Ecotrin) 81 mg DAILYWBKFT PO Last administered on 07/16/18at 08:51; Start 07/16/18 at 08:00; Stop 07/18/18 at 10:44; Status DC Carvedilol (Coreg) 25 mg BIDWMEALS PO Last administered on 07/16/18at 08:51; Start 07/15/18 at 17:30; Stop 07/18/18 at 10:44; Status DC Amlodipine Besylate (Norvasc) 5 mg DAILY PO Last administered on 07/16/18at 08: 51; Start 07/16/18 at 09:00; Stop 07/18/18 at 10:44; Status DC Al Hydroxide/Mg Hydroxide (Mylanta Plus Xs) 30 ml PRN Q2HR PRN PO HEARTBURN / GAS Last administered on 07/16/18at 11:42; Start 07/15/18 at 16:30; Stop at 10:44; Status DC Pantoprazole Sodium (Protonix) 40 mg DAILYAC PO Last administered on 07/16/18at 08:51; Start 07/16/18 at 07:30; Stop 07/16/18 at 13:18; Status DC Sucralfate (Carafate) 1 gm [id number] PO Last administered on 07/16/18at 12:17; Start 07/15/18 at 22:00; Stop 07/18/18 at 10:44; Status DC Sodium Chloride 1,000 ml @ 75 mls/hr [id number] IV Last administered on at 01:19; Start 07/15/18 at 21:45; Stop 07/17/18 at 11:51; Status DC Iohexol (Omnipaque 240 Mg/ml) 30 ml 1X ONCE PO Last administered on 07/16/18at 10:30; Start 07/16/18 at 10:30; Stop 07/16/18 at 10:31; Status DC Info (CONTRAST GIVEN -- Rx MONITORING) 1 each PRN DAILY PRN MC SEE COMMENTS; Start 07/16/18 at 10:30; Stop 07/18/18 at 10:29; Status DC Pantoprazole Sodium (PROTONIX VIAL for IV PUSH) 40 mg 1X ONCE IVP ; Start 07/17 at 07:30; Stop 07/17/18 at 07:30; Status DC Pantoprazole Sodium (PROTONIX VIAL for IV PUSH) 40 mg DAILYAC IVP Last administered on 07/21/18at 10:06; Start 07/17/18 at 07:30 Lorazepam (Ativan) 0.5 mg PRN QHS PRN IV ANXIETY / AGITATION Last administered on 07/16/18at 21:29; Start 07/16/18 at 18:15 Potassium Chloride/Dextrose/ Sod Cl 1,000 ml @ 100 mls/hr Q10H IV Last administered on 07/17/18at 12:13; Start 07/17/18 at 12:00; Stop 07/17/18 at 12:18 ; Status DC Amino Acids/ Glycerin/ Electrolytes 1,000 ml @ 80 mls/hr [id number] IV Last administered on 07/20/18at 23:27; Start 07/17/18 at 13:00 Enoxaparin Sodium (Lovenox 30mg Syringe) 30 mg Q24H SQ Last administered on at 13:04; Start 07/18/18 at 12:00; Stop 07/19/18 at 10:59; Status DC Clonidine HCl (Catapres Tts-2) 1 patch Fr TD ; Start 08/18/18 at 11:00; Stop at 11:00; Status DC Hydralazine HCl (Apresoline Inj) 10 mg PRN Q6HRS PRN IVP ELEVATED BP, SEE COMMENTS Last administered on 07/18/18at 11:06; Start 07/18/18 at 10:45 Clonidine HCl (Catapres Tts-2) 1 patch Fr TD Last administered on 07/18/18at 14: 59; Start 07/18/18 at 14:00 Enoxaparin Sodium (Lovenox 40mg Syringe) 40 mg Q24H SQ Last administered on at 12:36; Start 07/19/18 at 12:00 Insulin Human Lispro (HumaLOG) 0-6 UNITS BG 300-39... TIDWMEALS SQ ; Start 07/19 at 12:00; Stop 07/19/18 at 19:17; Status DC Insulin Human Lispro (HumaLOG) 0-6 UNITS BG 300-39... Q6HRS SQ Last administered on 07/20/18at 06:11; Start 07/20/18 at 00:00 Bisacodyl (Dulcolax Supp) 10 mg 1X ONCE AK Last administered on 07/20/18at 18: 10; Start 07/20/18 at 10:45; Stop 07/20/18 at 10:46; Status DC Iohexol (Omnipaque 300 Mg/ml) 300 ml 1X ONCE PO Last administered on at 13:27; Start 07/20/18 at 13:00; Stop 07/20/18 at 13:02; Status DC Info (CONTRAST GIVEN -- Rx MONITORING) 1 each PRN DAILY PRN MC SEE COMMENTS; Start 07/20/18 at 13:15; Stop 07/22/18 at 13:14 Active Scripts Active Pravastatin Sodium 40 Mg Tablet 1 Tab PO QHS 30 Days Cozaar (Losartan Potassium) 50 Mg Tablet 100 Mg PO DAILY 30 Days Klor-Con 10 (Potassium Chloride) 10 Meq Tablet.er 10 Meq PO DAILYWBKFT 30 Days Reported Hydrochlorothiazide Capsule (Hydrochlorothiazide) 12.5 Mg Capsule 12.5 Mg PO DAILY Levemir (Insulin Detemir) 100 Unit/1 Ml Vial 6 Unit SQ HS Centrum Silver Tablet (Multivits-Min/Fa/Lycopene/Lut) 1 Each Tablet 1 Each PO DAILY Aspirin 81 Mg Tab.chew 1 Tab PO DAILY Metformin Hcl 500 Mg Tablet 500 Mg PO HS Metformin Hcl 1,000 Mg Tablet 1,000 Mg PO DAILYWBKFT Carvedilol 25 Mg Tablet 25 Mg PO BIDWMEALS Vitals/I & O Vital Sign - Last 24 Hours 07/20/18 07/20/18 07/20/18 07/20/18 11:00 15:26 19:00 20:00 Temp 99.0 97.9 98.5 99.0 97.9 98.5 Pulse 93 86 100 Resp 28 28 18 B/P (MAP) 167/79 (108) 152/64 (93) 158/79 (105) Pulse Ox 98 91 96 O2 Delivery Room Air Room Air Room Air Room Air 07/20/18 07/21/18 07/21/18 07/21/18 23:00 03:00 07:00 08:00 Temp 98.5 98.6 99.2 98.5 98.6 99.2 Pulse 99 80 91 Resp 18 18 18 B/P (MAP) 166/86 (112) 173/83 (113) 164/81 (108) Pulse Ox 99 96 98 O2 Delivery Room Air Room Air Room Air Room Air Intake and Output 07/20/18 07/20/18 07/21/18 15:00 23:00 07:00 Intake Total 1000 ml Output Total 1203 ml 200 ml Balance -1203 ml 800 ml DARIA MARTINEZ MD Jul 21, 2018 10:18
[2018-07-21] MEDS ORDERED: hydrALAZINE 20 MG/ML VIAL. IVP PRN (10:30)
[2018-07-21 11:00] VITALS: BP 175/81
[2018-07-21] MEDS: ENOXAPARIN 40 MG/0.4 ML SYRINGE. SQ SCH (12:27)
[2018-07-21] MEDS: AMINO AC 3%/ELECTROLYTE/GLYCER 1,000 ML IV SCH (12:28)
--- NOTE | 2018-07-21 13:01 | NUR ---
SW following pt. Spoke with pt and daughter regarding SNU. Daughter reported they rather go home with [facility] upon dc. Daughter believes her mother is returning to her baseline and does not need SNU at this time. SW will arrange HH upon dc if ordered by Physician. Discussed with RN.
[2018-07-21 15:00] VITALS: BP 164/75
[2018-07-21 19:00] VITALS: BP 139/62
[2018-07-21 22:33] VITALS: BP 145/63
[2018-07-22] MEDS: AMINO AC 3%/ELECTROLYTE/GLYCER 1,000 ML IV SCH ×2 (01:31→18:36)
[2018-07-22 03:00] VITALS: BP 156/81
[2018-07-22 04:23] LABS: BASO % 1 % (0-3); EOS # 0.3 x10^3/uL (0.0-0.7); EOS % 4 % (0-3); HEMATOCRIT 33.2 % (36.0-47.0); HEMOGLOBIN 10.8 g/dL (12.0-15.5); LYMPH % 24 % (24-48); MEAN CORPUSCULAR HEMOGLOBIN 31 pg (25-35); MEAN CORPUSCULAR HGB CONC 33 g/dL (31-37); MEAN CORPUSCULAR VOLUME 95 fL (79-100); MONO # 1.3 x10^3/uL (0.0-1.1); MONO % 16 % (0-9); NEUT # 4.6 x10^3uL (1.8-7.7); NEUT % 56 % (31-73); PLATELET COUNT 271 x10^3/uL (140-400); RED BLOOD COUNT 3.48 x10^6/uL (3.50-5.40); RED CELL DISTRIBUTION WIDTH 12.8 % (11.5-14.5); WHITE BLOOD COUNT 8.3 x10^3/uL (4.0-11.0)
[2018-07-22 04:33] LABS: CALCIUM 8.8 mg/dL (8.5-10.1); GFR 63.8; POTASSIUM 4.2 mmol/L (3.5-5.1)
[2018-07-22] MEDS: INSULIN LISPRO 300 UNITS/3 ML INSULN.PEN. SQ SCH ×4 (06:20→18:38)
[2018-07-22 07:00] VITALS: BP 154/70
[2018-07-22] MEDS: PANTOPRAZOLE IV PUSH 40 MG VIAL. IVP SCH (07:59)
--- NOTE | 2018-07-22 09:09 | RAD ---
IWONA, 07/22/2018: HISTORY: Follow-up small bowel obstruction Comparison is made to the delayed image obtained on 07/21/2018 at 8:11 AM, from the recent small bowel series. There is residual contrast material from that study predominantly in the colon. A small amount of contrast is present in nondilated distal small bowel. There is minimal residual gaseous prominence of small bowel in the mid abdomen. There is no evidence organomegaly. IMPRESSION: Improving partial small bowel obstruction. Electronically signed by: Doug Melton MD (07/22/2018 9:06 AM) [facility]
--- NOTE | 2018-07-22 09:09 | PDOC ---
Subjective: Subjective: No n/v. Denies abd pain. Doesn't think passing flatus. Hasn't passed more stool. Objective: Vital Signs: Vital Signs Date Time Temp Pulse Resp B/P (MAP) Pulse Ox O2 Delivery O2 Flow Rate FiO2 07/22/18 07:00 98.4 92 16 154/70 (98) 95 Room Air 98.4 Labs: Laboratory Tests Test 07/21/18 12:10 07/21/18 18:31 07/22/18 00:02 07/22/18 03:50 Glucose (Fingerstick) 229 mg/dL 272 mg/dL 163 mg/dL White Blood Count 8.3 x10^3/uL Red Blood Count 3.48 x10^6/uL Hemoglobin 10.8 g/dL Hematocrit 33.2 % Mean Corpuscular Volume 95 fL Mean Corpuscular Hemoglobin 31 pg Mean Corpuscular Hemoglobin Concent 33 g/dL Red Cell Distribution Width 12.8 % Platelet Count 271 x10^3/uL Neutrophils (%) (Auto) 56 % Lymphocytes (%) (Auto) 24 % Monocytes (%) (Auto) 16 % Eosinophils (%) (Auto) 4 % Basophils (%) (Auto) 1 % Neutrophils # (Auto) 4.6 x10^3uL Lymphocytes # (Auto) 2.0 x10^3/uL Monocytes # (Auto) 1.3 x10^3/uL Eosinophils # (Auto) 0.3 x10^3/uL Basophils # (Auto) 0.0 x10^3/uL Sodium Level 135 mmol/L Potassium Level 4.2 mmol/L Chloride Level 100 mmol/L Carbon Dioxide Level 25 mmol/L Anion Gap 10 Blood Urea Nitrogen 20 mg/dL Creatinine 1.0 mg/dL Estimated GFR (Cockcroft-Gault) 63.8 Glucose Level 214 mg/dL Calcium Level 8.8 mg/dL Test 07/22/18 06:13 Glucose (Fingerstick) 205 mg/dL Imaging: KUB 07/22 pending PE: GEN: NAD HEENT: NG clamped LUNGS: CTAB HEART: RRR ABD: occasional quiet BS, S/ND/NT NEURO/PSYCH: A & O 3, quiet A/P: Partial SBO -- Await imaging and surgical thoughts. Continue PPI, PPN. DAMON EATON Jul 22, 2018 09:09
--- NOTE | 2018-07-22 10:22 | PDOC ---
PROGRESS NOTES Subjective Subjective tolerated NG clamping. no vomiting. no BM. feels well. no abdominal pain. KUB better. discussed with [employer] surgeon. lab reviewed. Objective Objective Vital Signs Date Time Temp Pulse Resp B/P (MAP) Pulse Ox O2 Delivery O2 Flow Rate FiO2 07/22/18 08:00 Room Air 07/22/18 07:00 98.4 92 16 154/70 (98) 95 98.4 Intake and Output 07/22/18 07:00 Intake Total 0 ml Output Total 800 ml Balance -800 ml Intake Oral 0 ml Output Urine Total 400 ml Gastric Drainage Total 250 ml Drainage Total 150 ml Physical Exam Abdomen: Normal bowel sounds, Soft, No tenderness Heart: Regular rate, Normal S1, Normal S2 Extremities: No edema General: Alert HEENT: Atraumatic Lungs: Clear to auscultation Neuro: Normal speech Psych/Mental Status: Mental status NL Skin: No rashes Assessment Assessment 1. Acute kidney injury secondary to dehydration resolved 2. Partial distal SBO. improved 3. Hypertension 4. Diabetes mellitus type 2 5. Gastroesophageal reflux disease. 6. Hyperlipidemia. 7. Atypical chest pain resolved secondary pulmonary hypertension suspect due to obesity Plan Plan of Care anticipate removal of NG tube and starting clear liquids. defer to surgical service continue PPN Comment Review of Relevant I have reviewed the following items brandon (where applicable) has been applied. Labs Laboratory Tests Test 07/20/18 11:50 07/20/18 17:56 07/20/18 23:26 07/21/18 05:55 Glucose (Fingerstick) 204 mg/dL (70-99) 291 mg/dL (70-99) 231 mg/dL (70-99) White Blood Count 7.8 x10^3/uL (4.0-11.0) Red Blood Count 3.22 x10^6/uL (3.50-5.40) Hemoglobin 10.5 g/dL (12.0-15.5) Hematocrit 30.6 % (36.0-47.0) Mean Corpuscular Volume 95 fL (79-100) Mean Corpuscular Hemoglobin 33 pg (25-35) Mean Corpuscular Hemoglobin Concent 34 g/dL (31-37) Red Cell Distribution Width 12.9 % (11.5-14.5) Platelet Count 220 x10^3/uL (140-400) Neutrophils (%) (Auto) 59 % (31-73) Lymphocytes (%) (Auto) 20 % (24-48) Monocytes (%) (Auto) 18 % (0-9) Eosinophils (%) (Auto) 3 % (0-3) Basophils (%) (Auto) 1 % (0-3) Neutrophils # (Auto) 4.6 x10^3uL (1.8-7.7) Lymphocytes # (Auto) 1.5 x10^3/uL (1.0-4.8) Monocytes # (Auto) 1.4 x10^3/uL (0.0-1.1) Eosinophils # (Auto) 0.3 x10^3/uL (0.0-0.7) Basophils # (Auto) 0.0 x10^3/uL (0.0-0.2) Sodium Level 131 mmol/L (136-145) Potassium Level 4.0 mmol/L (3.5-5.1) Chloride Level 98 mmol/L (98-107) Carbon Dioxide Level 28 mmol/L (21-32) Anion Gap 5 (6-14) Blood Urea Nitrogen 25 mg/dL (7-20) Creatinine 0.9 mg/dL (0.6-1.0) Estimated GFR (Cockcroft-Gault) 72.0 BUN/Creatinine Ratio 28 (6-20) Glucose Level 249 mg/dL (70-99) Calcium Level 8.6 mg/dL (8.5-10.1) Magnesium Level 2.2 mg/dL (1.8-2.4) Total Bilirubin 0.7 mg/dL (0.2-1.0) Aspartate Amino Transf (AST/SGOT) 18 U/L (15-37) Alanine Aminotransferase (ALT/SGPT) 15 U/L (14-59) Alkaline Phosphatase 59 U/L (46-116) Total Protein 6.3 g/dL (6.4-8.2) Albumin 2.3 g/dL (3.4-5.0) Albumin/Globulin Ratio 0.6 (1.0-1.7) Test 07/21/18 06:08 07/21/18 12:10 07/21/18 18:31 07/22/18 00:02 Glucose (Fingerstick) 228 mg/dL (70-99) 229 mg/dL (70-99) 272 mg/dL (70-99) 163 mg/dL (70-99) Test 07/22/18 03:50 07/22/18 06:13 White Blood Count 8.3 x10^3/uL (4.0-11.0) Red Blood Count 3.48 x10^6/uL (3.50-5.40) Hemoglobin 10.8 g/dL (12.0-15.5) Hematocrit 33.2 % (36.0-47.0) Mean Corpuscular Volume 95 fL (79-100) Mean Corpuscular Hemoglobin 31 pg (25-35) Mean Corpuscular Hemoglobin Concent 33 g/dL (31-37) Red Cell Distribution Width 12.8 % (11.5-14.5) Platelet Count 271 x10^3/uL (140-400) Neutrophils (%) (Auto) 56 % (31-73) Lymphocytes (%) (Auto) 24 % (24-48) Monocytes (%) (Auto) 16 % (0-9) Eosinophils (%) (Auto) 4 % (0-3) Basophils (%) (Auto) 1 % (0-3) Neutrophils # (Auto) 4.6 x10^3uL (1.8-7.7) Lymphocytes # (Auto) 2.0 x10^3/uL (1.0-4.8) Monocytes # (Auto) 1.3 x10^3/uL (0.0-1.1) Eosinophils # (Auto) 0.3 x10^3/uL (0.0-0.7) Basophils # (Auto) 0.0 x10^3/uL (0.0-0.2) Sodium Level 135 mmol/L (136-145) Potassium Level 4.2 mmol/L (3.5-5.1) Chloride Level 100 mmol/L (98-107) Carbon Dioxide Level 25 mmol/L (21-32) Anion Gap 10 (6-14) Blood Urea Nitrogen 20 mg/dL (7-20) Creatinine 1.0 mg/dL (0.6-1.0) Estimated GFR (Cockcroft-Gault) 63.8 Glucose Level 214 mg/dL (70-99) Calcium Level 8.8 mg/dL (8.5-10.1) Glucose (Fingerstick) 205 mg/dL (70-99) Laboratory Tests Test 07/21/18 12:10 07/21/18 18:31 07/22/18 00:02 07/22/18 03:50 Glucose (Fingerstick) 229 mg/dL (70-99) 272 mg/dL (70-99) 163 mg/dL (70-99) White Blood Count 8.3 x10^3/uL (4.0-11.0) Red Blood Count 3.48 x10^6/uL (3.50-5.40) Hemoglobin 10.8 g/dL (12.0-15.5) Hematocrit 33.2 % (36.0-47.0) Mean Corpuscular Volume 95 fL (79-100) Mean Corpuscular Hemoglobin 31 pg (25-35) Mean Corpuscular Hemoglobin Concent 33 g/dL (31-37) Red Cell Distribution Width 12.8 % (11.5-14.5) Platelet Count 271 x10^3/uL (140-400) Neutrophils (%) (Auto) 56 % (31-73) Lymphocytes (%) (Auto) 24 % (24-48) Monocytes (%) (Auto) 16 % (0-9) Eosinophils (%) (Auto) 4 % (0-3) Basophils (%) (Auto) 1 % (0-3) Neutrophils # (Auto) 4.6 x10^3uL (1.8-7.7) Lymphocytes # (Auto) 2.0 x10^3/uL (1.0-4.8) Monocytes # (Auto) 1.3 x10^3/uL (0.0-1.1) Eosinophils # (Auto) 0.3 x10^3/uL (0.0-0.7) Basophils # (Auto) 0.0 x10^3/uL (0.0-0.2) Sodium Level 135 mmol/L (136-145) Potassium Level 4.2 mmol/L (3.5-5.1) Chloride Level 100 mmol/L (98-107) Carbon Dioxide Level 25 mmol/L (21-32) Anion Gap 10 (6-14) Blood Urea Nitrogen 20 mg/dL (7-20) Creatinine 1.0 mg/dL (0.6-1.0) Estimated GFR (Cockcroft-Gault) 63.8 Glucose Level 214 mg/dL (70-99) Calcium Level 8.8 mg/dL (8.5-10.1) Test 07/22/18 06:13 Glucose (Fingerstick) 205 mg/dL (70-99) Microbiology 07/17/18 Urine Culture - Final, Complete 07/17/18 Urine Culture Result 1 ([facility]) - Final, Complete Medications Current Medications Sodium Chloride 1,000 ml @ 60 mls/hr [id number] IV ; Start 07/15/18 at 17:30; Stop 07/16/18 at 10:16; Status DC Insulin Human Lispro (HumaLOG) 0-5 UNITS TIDWMEALS SQ Last administered on 07/16at 12:20; Start 07/15/18 at 17:30; Stop 07/19/18 at 10:59; Status DC Dextrose (Dextrose 50%-Water Syringe) 12.5 gm PRN Q15MIN PRN IV SEE COMMENTS; Start 07/15/18 at 16:30 Ondansetron HCl (Zofran) 4 mg PRN Q6HRS PRN IV NAUSEA/VOMITING Last administered on 07/16/18at 11:43; Start 07/15/18 at 16:30 Acetaminophen (Tylenol) 325 mg PRN Q4HRS PRN PO MILD PAIN / TEMP; Start at 16:30; Stop 07/18/18 at 10:44; Status DC Acetaminophen (Tylenol) 650 mg PRN Q4HRS PRN PO MILD PAIN/TEMP, 2ND CHOICE; Start 07/15/18 at 16:30; Stop 07/18/18 at 10:44; Status DC Aspirin (Ecotrin) 81 mg DAILYWBKFT PO Last administered on 07/16/18at 08:51; Start 07/16/18 at 08:00; Stop 07/18/18 at 10:44; Status DC Carvedilol (Coreg) 25 mg BIDWMEALS PO Last administered on 07/16/18at 08:51; Start 07/15/18 at 17:30; Stop 07/18/18 at 10:44; Status DC Amlodipine Besylate (Norvasc) 5 mg DAILY PO Last administered on 07/16/18at 08: 51; Start 07/16/18 at 09:00; Stop 07/18/18 at 10:44; Status DC Al Hydroxide/Mg Hydroxide (Mylanta Plus Xs) 30 ml PRN Q2HR PRN PO HEARTBURN / GAS Last administered on 07/16/18at 11:42; Start 07/15/18 at 16:30; Stop at 10:44; Status DC Pantoprazole Sodium (Protonix) 40 mg DAILYAC PO Last administered on 07/16/18at 08:51; Start 07/16/18 at 07:30; Stop 07/16/18 at 13:18; Status DC Sucralfate (Carafate) 1 gm TIDWMEALHC PO Last administered on 07/16/18at 12:17; Start 07/15/18 at 22:00; Stop 07/18/18 at 10:44; Status DC Sodium Chloride 1,000 ml @ 75 mls/hr [id number] IV Last administered on at 01:19; Start 07/15/18 at 21:45; Stop 07/17/18 at 11:51; Status DC Iohexol (Omnipaque 240 Mg/ml) 30 ml 1X ONCE PO Last administered on 07/16/18at 10:30; Start 07/16/18 at 10:30; Stop 07/16/18 at 10:31; Status DC Info (CONTRAST GIVEN -- Rx MONITORING) 1 each PRN DAILY PRN MC SEE COMMENTS; Start 07/16/18 at 10:30; Stop 07/18/18 at 10:29; Status DC Pantoprazole Sodium (PROTONIX VIAL for IV PUSH) 40 mg 1X ONCE IVP ; Start 07/17 at 07:30; Stop 07/17/18 at 07:30; Status DC Pantoprazole Sodium (PROTONIX VIAL for IV PUSH) 40 mg DAILYAC IVP Last administered on 07/22/18at 07:59; Start 07/17/18 at 07:30 Lorazepam (Ativan) 0.5 mg PRN QHS PRN IV ANXIETY / AGITATION Last administered on 07/16/18at 21:29; Start 07/16/18 at 18:15 Potassium Chloride/Dextrose/ Sod Cl 1,000 ml @ 100 mls/hr Q10H IV Last administered on 07/17/18at 12:13; Start 07/17/18 at 12:00; Stop 07/17/18 at 12:18 ; Status DC Amino Acids/ Glycerin/ Electrolytes 1,000 ml @ 80 mls/hr [id number] IV Last administered on 07/22/18at 01:31; Start 07/17/18 at 13:00 Enoxaparin Sodium (Lovenox 30mg Syringe) 30 mg Q24H SQ Last administered on at 13:04; Start 07/18/18 at 12:00; Stop 07/19/18 at 10:59; Status DC Clonidine HCl (Catapres Tts-2) 1 patch Fr TD ; Start 08/18/18 at 11:00; Stop at 11:00; Status DC Hydralazine HCl (Apresoline Inj) 10 mg PRN Q6HRS PRN IVP ELEVATED BP, SEE COMMENTS Last administered on 07/18/18at 11:06; Start 07/18/18 at 10:45; Stop 07/21/18 at 10:21; Status DC Clonidine HCl (Catapres Tts-2) 1 patch Fr TD Last administered on 07/18/18at 14: 59; Start 07/18/18 at 14:00 Enoxaparin Sodium (Lovenox 40mg Syringe) 40 mg Q24H SQ Last administered on 07/21at 12:27; Start 07/19/18 at 12:00 Insulin Human Lispro (HumaLOG) 0-6 UNITS BG 300-39... TIDWMEALS SQ ; Start 07/19 at 12:00; Stop 07/19/18 at 19:17; Status DC Insulin Human Lispro (HumaLOG) 0-6 UNITS BG 300-39... Q6HRS SQ Last administered on 07/20/18at 06:11; Start 07/20/18 at 00:00; Stop 07/21/18 at 10:21 ; Status DC Bisacodyl (Dulcolax Supp) 10 mg 1X ONCE MT Last administered on 07/20/18at 18: 10; Start 07/20/18 at 10:45; Stop 07/20/18 at 10:46; Status DC Iohexol (Omnipaque 300 Mg/ml) 300 ml 1X ONCE PO Last administered on at 13:27; Start 07/20/18 at 13:00; Stop 07/20/18 at 13:02; Status DC Info (CONTRAST GIVEN -- Rx MONITORING) 1 each PRN DAILY PRN MC SEE COMMENTS; Start 07/20/18 at 13:15; Stop 07/22/18 at 13:14 Hydralazine HCl (Apresoline Inj) 25 mg PRN Q6HRS PRN IVP ELEVATED BP, SEE COMMENTS Last administered on 07/21/18at 18:21; Start 07/21/18 at 10:30 Insulin Human Lispro (HumaLOG) 0-6 UNITS BG 300-39... Q6HRS SQ Last administered on 07/22/18at 06:20; Start 07/21/18 at 12:00 Active Scripts Active Pravastatin Sodium 40 Mg Tablet 1 Tab PO QHS 30 Days Cozaar (Losartan Potassium) 50 Mg Tablet 100 Mg PO DAILY 30 Days Klor-Con 10 (Potassium Chloride) 10 Meq Tablet.er 10 Meq PO DAILYWBKFT 30 Days Reported Hydrochlorothiazide Capsule (Hydrochlorothiazide) 12.5 Mg Capsule 12.5 Mg PO DAILY Levemir (Insulin Detemir) 100 Unit/1 Ml Vial 6 Unit SQ HS Centrum Silver Tablet (Multivits-Min/Fa/Lycopene/Lut) 1 Each Tablet 1 Each PO DAILY Aspirin 81 Mg Tab.chew 1 Tab PO DAILY Metformin Hcl 500 Mg Tablet 500 Mg PO HS Metformin Hcl 1,000 Mg Tablet 1,000 Mg PO DAILYWBKFT Carvedilol 25 Mg Tablet 25 Mg PO BIDWMEALS Vitals/I & O Vital Sign - Last 24 Hours 07/21/18 07/21/18 07/21/18 07/21/18 11:00 15:00 18:21 19:00 Temp 98.4 98.5 97.7 98.4 98.5 97.7 Pulse 91 85 85 100 Resp 14 16 17 B/P (MAP) 175/81 (112) 164/75 (104) 164/75 139/62 (87) Pulse Ox 97 97 96 O2 Delivery Room Air Room Air Room Air 07/21/18 07/21/18 07/22/18 07/22/18 20:00 22:33 03:00 07:00 Temp 98.8 99.1 98.4 98.8 99.1 98.4 Pulse 100 103 92 Resp 17 16 16 B/P (MAP) 145/63 (90) 156/81 (106) 154/70 (98) Pulse Ox 95 96 95 O2 Delivery Room Air Room Air Room Air Room Air 07/22/18 08:00 O2 Delivery Room Air Intake and Output 07/21/18 07/21/18 07/22/18 15:00 23:00 07:00 Intake Total 0 ml Output Total 400 ml 400 ml Balance -400 ml -400 ml DARIA MARTINEZ MD Jul 22, 2018 10:22
--- NOTE | 2018-07-22 10:42 | PDOC ---
[facility] [employer] 07/22/18 1042: SURGICAL PROGRESS NOTE Subjective tolerating NG clamping no flatus or stool though no pain or bloating Vital Signs Vital Signs Date Time Temp Pulse Resp B/P (MAP) Pulse Ox O2 Delivery O2 Flow Rate FiO2 07/22/18 08:00 Room Air 07/22/18 07:00 98.4 92 16 154/70 (98) 95 98.4 I&O Intake and Output 07/22/18 07:00 Intake Total 0 ml Output Total 800 ml Balance -800 ml Intake Oral 0 ml Output Urine Total 400 ml Gastric Drainage Total 250 ml Drainage Total 150 ml General: Alert, Oriented X3, Cooperative, No acute distress Abdomen: Soft, No tenderness Labs Laboratory Tests Test 07/20/18 11:50 07/20/18 17:56 07/20/18 23:26 07/21/18 05:55 Glucose (Fingerstick) 204 mg/dL (70-99) 291 mg/dL (70-99) 231 mg/dL (70-99) White Blood Count 7.8 x10^3/uL (4.0-11.0) Red Blood Count 3.22 x10^6/uL (3.50-5.40) Hemoglobin 10.5 g/dL (12.0-15.5) Hematocrit 30.6 % (36.0-47.0) Mean Corpuscular Volume 95 fL (79-100) Mean Corpuscular Hemoglobin 33 pg (25-35) Mean Corpuscular Hemoglobin Concent 34 g/dL (31-37) Red Cell Distribution Width 12.9 % (11.5-14.5) Platelet Count 220 x10^3/uL (140-400) Neutrophils (%) (Auto) 59 % (31-73) Lymphocytes (%) (Auto) 20 % (24-48) Monocytes (%) (Auto) 18 % (0-9) Eosinophils (%) (Auto) 3 % (0-3) Basophils (%) (Auto) 1 % (0-3) Neutrophils # (Auto) 4.6 x10^3uL (1.8-7.7) Lymphocytes # (Auto) 1.5 x10^3/uL (1.0-4.8) Monocytes # (Auto) 1.4 x10^3/uL (0.0-1.1) Eosinophils # (Auto) 0.3 x10^3/uL (0.0-0.7) Basophils # (Auto) 0.0 x10^3/uL (0.0-0.2) Sodium Level 131 mmol/L (136-145) Potassium Level 4.0 mmol/L (3.5-5.1) Chloride Level 98 mmol/L (98-107) Carbon Dioxide Level 28 mmol/L (21-32) Anion Gap 5 (6-14) Blood Urea Nitrogen 25 mg/dL (7-20) Creatinine 0.9 mg/dL (0.6-1.0) Estimated GFR (Cockcroft-Gault) 72.0 BUN/Creatinine Ratio 28 (6-20) Glucose Level 249 mg/dL (70-99) Calcium Level 8.6 mg/dL (8.5-10.1) Magnesium Level 2.2 mg/dL (1.8-2.4) Total Bilirubin 0.7 mg/dL (0.2-1.0) Aspartate Amino Transf (AST/SGOT) 18 U/L (15-37) Alanine Aminotransferase (ALT/SGPT) 15 U/L (14-59) Alkaline Phosphatase 59 U/L (46-116) Total Protein 6.3 g/dL (6.4-8.2) Albumin 2.3 g/dL (3.4-5.0) Albumin/Globulin Ratio 0.6 (1.0-1.7) Test 07/21/18 06:08 07/21/18 12:10 07/21/18 18:31 07/22/18 00:02 Glucose (Fingerstick) 228 mg/dL (70-99) 229 mg/dL (70-99) 272 mg/dL (70-99) 163 mg/dL (70-99) Test 07/22/18 03:50 07/22/18 06:13 White Blood Count 8.3 x10^3/uL (4.0-11.0) Red Blood Count 3.48 x10^6/uL (3.50-5.40) Hemoglobin 10.8 g/dL (12.0-15.5) Hematocrit 33.2 % (36.0-47.0) Mean Corpuscular Volume 95 fL (79-100) Mean Corpuscular Hemoglobin 31 pg (25-35) Mean Corpuscular Hemoglobin Concent 33 g/dL (31-37) Red Cell Distribution Width 12.8 % (11.5-14.5) Platelet Count 271 x10^3/uL (140-400) Neutrophils (%) (Auto) 56 % (31-73) Lymphocytes (%) (Auto) 24 % (24-48) Monocytes (%) (Auto) 16 % (0-9) Eosinophils (%) (Auto) 4 % (0-3) Basophils (%) (Auto) 1 % (0-3) Neutrophils # (Auto) 4.6 x10^3uL (1.8-7.7) Lymphocytes # (Auto) 2.0 x10^3/uL (1.0-4.8) Monocytes # (Auto) 1.3 x10^3/uL (0.0-1.1) Eosinophils # (Auto) 0.3 x10^3/uL (0.0-0.7) Basophils # (Auto) 0.0 x10^3/uL (0.0-0.2) Sodium Level 135 mmol/L (136-145) Potassium Level 4.2 mmol/L (3.5-5.1) Chloride Level 100 mmol/L (98-107) Carbon Dioxide Level 25 mmol/L (21-32) Anion Gap 10 (6-14) Blood Urea Nitrogen 20 mg/dL (7-20) Creatinine 1.0 mg/dL (0.6-1.0) Estimated GFR (Cockcroft-Gault) 63.8 Glucose Level 214 mg/dL (70-99) Calcium Level 8.8 mg/dL (8.5-10.1) Glucose (Fingerstick) 205 mg/dL (70-99) Laboratory Tests Test 07/21/18 12:10 07/21/18 18:31 07/22/18 00:02 07/22/18 03:50 Glucose (Fingerstick) 229 mg/dL (70-99) 272 mg/dL (70-99) 163 mg/dL (70-99) White Blood Count 8.3 x10^3/uL (4.0-11.0) Red Blood Count 3.48 x10^6/uL (3.50-5.40) Hemoglobin 10.8 g/dL (12.0-15.5) Hematocrit 33.2 % (36.0-47.0) Mean Corpuscular Volume 95 fL (79-100) Mean Corpuscular Hemoglobin 31 pg (25-35) Mean Corpuscular Hemoglobin Concent 33 g/dL (31-37) Red Cell Distribution Width 12.8 % (11.5-14.5) Platelet Count 271 x10^3/uL (140-400) Neutrophils (%) (Auto) 56 % (31-73) Lymphocytes (%) (Auto) 24 % (24-48) Monocytes (%) (Auto) 16 % (0-9) Eosinophils (%) (Auto) 4 % (0-3) Basophils (%) (Auto) 1 % (0-3) Neutrophils # (Auto) 4.6 x10^3uL (1.8-7.7) Lymphocytes # (Auto) 2.0 x10^3/uL (1.0-4.8) Monocytes # (Auto) 1.3 x10^3/uL (0.0-1.1) Eosinophils # (Auto) 0.3 x10^3/uL (0.0-0.7) Basophils # (Auto) 0.0 x10^3/uL (0.0-0.2) Sodium Level 135 mmol/L (136-145) Potassium Level 4.2 mmol/L (3.5-5.1) Chloride Level 100 mmol/L (98-107) Carbon Dioxide Level 25 mmol/L (21-32) Anion Gap 10 (6-14) Blood Urea Nitrogen 20 mg/dL (7-20) Creatinine 1.0 mg/dL (0.6-1.0) Estimated GFR (Cockcroft-Gault) 63.8 Glucose Level 214 mg/dL (70-99) Calcium Level 8.8 mg/dL (8.5-10.1) Test 07/22/18 06:13 Glucose (Fingerstick) 205 mg/dL (70-99) Assessment/Plan xrays improved, will check residual and start clears if low CECI STEVE MD 07/22/18 1149: SURGICAL PROGRESS NOTE Assessment/Plan pt seen up to bedside chair has pulled her NG out will offer clear liquids [employer] Jul 22, 2018 10:42 CECI STEVE MD Jul 22, 2018 11:49
[2018-07-22 11:00] VITALS: BP 147/72
[2018-07-22] MEDS: ENOXAPARIN 40 MG/0.4 ML SYRINGE. SQ SCH (14:45)
[2018-07-22 15:00] VITALS: BP 150/88
[2018-07-22 19:00] VITALS: BP_SYST 136; BP_SYST 150; BP_DIAS 85; BP_DIAS 87
[2018-07-22 23:00] VITALS: BP 153/80
[2018-07-23 03:00] VITALS: BP 140/68
[2018-07-23] MEDS: INSULIN LISPRO 300 UNITS/3 ML INSULN.PEN. SQ SCH ×4 (06:00→18:41)
[2018-07-23 07:00] VITALS: BP 172/67
[2018-07-23] MEDS: AMINO AC 3%/ELECTROLYTE/GLYCER 1,000 ML IV SCH (07:13)
--- NOTE | 2018-07-23 10:03 | PDOC ---
Subjective: Subjective: Tolerating clears. Passing gas, thinks she had a stool yesterday. Objective: Vital Signs: Vital Signs Date Time Temp Pulse Resp B/P (MAP) Pulse Ox O2 Delivery O2 Flow Rate FiO2 07/23/18 07:00 98.3 80 16 172/67 (102) 94 Room Air 98.3 07/22/18 19:00 Labs: Laboratory Tests Test 07/22/18 12:16 07/22/18 18:31 07/23/18 00:27 07/23/18 06:12 Glucose (Fingerstick) 136 mg/dL 227 mg/dL 103 mg/dL 175 mg/dL Imaging: KUB 07/22 IMPRESSION: Improving partial small bowel obstruction. PE: GEN: NAD, sitting od edge of bed w/ tray of clears LUNGS: room air HEART: RRR ABD: quiet BS, soft, non-tender NEURO/PSYCH: A & O 3 A/P: Partial SBO - resolving -- Tolerating clears, defer diet to surgery. Can change to PO PPI. DAMON EATON Jul 23, 2018 10:03
--- NOTE | 2018-07-23 10:25 | PDOC ---
PROGRESS NOTES Subjective Subjective feels better. tolerated liquids. says she had a BM. no vomiting. walked in room. bp is highi Objective Objective Vital Signs Date Time Temp Pulse Resp B/P (MAP) Pulse Ox O2 Delivery O2 Flow Rate FiO2 07/23/18 07:00 98.3 80 16 172/67 (102) 94 Room Air 98.3 07/22/18 19:00 Intake and Output 07/23/18 06:59 Intake Total 240 ml Balance 240 ml Intake Oral 240 ml # Voids 3 # Bowel Movements 1 Physical Exam Abdomen: Soft, No tenderness Heart: Regular rate, Normal S1, Normal S2 Extremities: No edema General: Alert Lungs: Clear to auscultation Neuro: Normal speech Psych/Mental Status: Mental status NL Skin: No rashes Assessment Assessment 1. Acute kidney injury secondary to dehydration resolved 2. Partial distal SBO. improved 3. Hypertension. bp high 4. Diabetes mellitus type 2 5. Gastroesophageal reflux disease. 6. Hyperlipidemia. 7. Atypical chest pain resolved secondary pulmonary hypertension suspect due to obesit Plan Plan of Care advance to full liquids decrease PPN start home bp meds start metformin lab tomorrow Comment Review of Relevant I have reviewed the following items brandon (where applicable) has been applied. Labs Laboratory Tests Test 07/21/18 12:10 07/21/18 18:31 07/22/18 00:02 07/22/18 03:50 Glucose (Fingerstick) 229 mg/dL (70-99) 272 mg/dL (70-99) 163 mg/dL (70-99) White Blood Count 8.3 x10^3/uL (4.0-11.0) Red Blood Count 3.48 x10^6/uL (3.50-5.40) Hemoglobin 10.8 g/dL (12.0-15.5) Hematocrit 33.2 % (36.0-47.0) Mean Corpuscular Volume 95 fL (79-100) Mean Corpuscular Hemoglobin 31 pg (25-35) Mean Corpuscular Hemoglobin Concent 33 g/dL (31-37) Red Cell Distribution Width 12.8 % (11.5-14.5) Platelet Count 271 x10^3/uL (140-400) Neutrophils (%) (Auto) 56 % (31-73) Lymphocytes (%) (Auto) 24 % (24-48) Monocytes (%) (Auto) 16 % (0-9) Eosinophils (%) (Auto) 4 % (0-3) Basophils (%) (Auto) 1 % (0-3) Neutrophils # (Auto) 4.6 x10^3uL (1.8-7.7) Lymphocytes # (Auto) 2.0 x10^3/uL (1.0-4.8) Monocytes # (Auto) 1.3 x10^3/uL (0.0-1.1) Eosinophils # (Auto) 0.3 x10^3/uL (0.0-0.7) Basophils # (Auto) 0.0 x10^3/uL (0.0-0.2) Sodium Level 135 mmol/L (136-145) Potassium Level 4.2 mmol/L (3.5-5.1) Chloride Level 100 mmol/L (98-107) Carbon Dioxide Level 25 mmol/L (21-32) Anion Gap 10 (6-14) Blood Urea Nitrogen 20 mg/dL (7-20) Creatinine 1.0 mg/dL (0.6-1.0) Estimated GFR (Cockcroft-Gault) 63.8 Glucose Level 214 mg/dL (70-99) Calcium Level 8.8 mg/dL (8.5-10.1) Test 07/22/18 06:13 07/22/18 12:16 07/22/18 18:31 07/23/18 00:27 Glucose (Fingerstick) 205 mg/dL (70-99) 136 mg/dL (70-99) 227 mg/dL (70-99) 103 mg/dL (70-99) Test 07/23/18 06:12 Glucose (Fingerstick) 175 mg/dL (70-99) Laboratory Tests Test 07/22/18 12:16 07/22/18 18:31 07/23/18 00:27 07/23/18 06:12 Glucose (Fingerstick) 136 mg/dL (70-99) 227 mg/dL (70-99) 103 mg/dL (70-99) 175 mg/dL (70-99) Microbiology 07/17/18 Urine Culture - Final, Complete 07/17/18 Urine Culture Result 1 ([facility]) - Final, Complete Medications Current Medications Sodium Chloride 1,000 ml @ 60 mls/hr [id number] IV ; Start 07/15/18 at 17:30; Stop 07/16/18 at 10:16; Status DC Insulin Human Lispro (HumaLOG) 0-5 UNITS TIDWMEALS SQ Last administered on 07/16at 12:20; Start 07/15/18 at 17:30; Stop 07/19/18 at 10:59; Status DC Dextrose (Dextrose 50%-Water Syringe) 12.5 gm PRN Q15MIN PRN IV SEE COMMENTS; Start 07/15/18 at 16:30 Ondansetron HCl (Zofran) 4 mg PRN Q6HRS PRN IV NAUSEA/VOMITING Last administered on 07/16/18at 11:43; Start 07/15/18 at 16:30 Acetaminophen (Tylenol) 325 mg PRN Q4HRS PRN PO MILD PAIN / TEMP; Start at 16:30; Stop 07/18/18 at 10:44; Status DC Acetaminophen (Tylenol) 650 mg PRN Q4HRS PRN PO MILD PAIN/TEMP, 2ND CHOICE; Start 07/15/18 at 16:30; Stop 07/18/18 at 10:44; Status DC Aspirin (Ecotrin) 81 mg DAILYWBKFT PO Last administered on 07/16/18at 08:51; Start 07/16/18 at 08:00; Stop 07/18/18 at 10:44; Status DC Carvedilol (Coreg) 25 mg BIDWMEALS PO Last administered on 07/16/18at 08:51; Start 07/15/18 at 17:30; Stop 07/18/18 at 10:44; Status DC Amlodipine Besylate (Norvasc) 5 mg DAILY PO Last administered on 07/16/18at 08: 51; Start 07/16/18 at 09:00; Stop 07/18/18 at 10:44; Status DC Al Hydroxide/Mg Hydroxide (Mylanta Plus Xs) 30 ml PRN Q2HR PRN PO HEARTBURN / GAS Last administered on 07/16/18at 11:42; Start 07/15/18 at 16:30; Stop at 10:44; Status DC Pantoprazole Sodium (Protonix) 40 mg DAILYAC PO Last administered on 3/27/19at 08:51; Start 07/16/18 at 07:30; Stop 07/16/18 at 13:18; Status DC Sucralfate (Carafate) 1 gm TIDWMEALHC PO Last administered on 07/16/18at 12:17; Start 07/15/18 at 22:00; Stop 07/18/18 at 10:44; Status DC Sodium Chloride 1,000 ml @ 75 mls/hr [id number] IV Last administered on at 01:19; Start 07/15/18 at 21:45; Stop 07/17/18 at 11:51; Status DC Iohexol (Omnipaque 240 Mg/ml) 30 ml 1X ONCE PO Last administered on 07/16/18at 10:30; Start 07/16/18 at 10:30; Stop 07/16/18 at 10:31; Status DC Info (CONTRAST GIVEN -- Rx MONITORING) 1 each PRN DAILY PRN MC SEE COMMENTS; Start 07/16/18 at 10:30; Stop 07/18/18 at 10:29; Status DC Pantoprazole Sodium (PROTONIX VIAL for IV PUSH) 40 mg 1X ONCE IVP ; Start 07/17 at 07:30; Stop 07/17/18 at 07:30; Status DC Pantoprazole Sodium (PROTONIX VIAL for IV PUSH) 40 mg DAILYAC IVP Last administered on 07/22/18 07:59; Start 07/17/18 at 07:30; Stop 07/23/18 at 10:04; Status DC Lorazepam (Ativan) 0.5 mg PRN QHS PRN IV ANXIETY / AGITATION Last administered on 07/16/18at 21:29; Start 07/16/18 at 18:15 Potassium Chloride/Dextrose/ Sod Cl 1,000 ml @ 100 mls/hr Q10H IV Last administered on 07/17/18 12:13; Start 07/17/18 at 12:00; Stop 07/17/18 at 12:18 ; Status DC Amino Acids/ Glycerin/ Electrolytes 1,000 ml @ 80 mls/hr [id number] IV Last administered on 07/23/18 07:13; Start 07/17/18 at 13:00 Enoxaparin Sodium (Lovenox 30mg Syringe) 30 mg Q24H SQ Last administered on at 13:04; Start 07/18/18 at 12:00; Stop 07/19/18 at 10:59; Status DC Clonidine HCl (Catapres Tts-2) 1 patch Fr TD ; Start 08/18/18 at 11:00; Stop at 11:00; Status DC Hydralazine HCl (Apresoline Inj) 10 mg PRN Q6HRS PRN IVP ELEVATED BP, SEE COMMENTS Last administered on 07/18/18at 11:06; Start 07/18/18 at 10:45; Stop 07/21/18 at 10:21; Status DC Clonidine HCl (Catapres Tts-2) 1 patch Fr TD Last administered on 07/18/18at 14: 59; Start 07/18/18 at 14:00 Enoxaparin Sodium (Lovenox 40mg Syringe) 40 mg Q24H SQ Last administered on 07/22at 14:45; Start 07/19/18 at 12:00 Insulin Human Lispro (HumaLOG) 0-6 UNITS BG 300-39... TIDWMEALS SQ ; Start 07/19 at 12:00; Stop 07/19/18 at 19:17; Status DC Insulin Human Lispro (HumaLOG) 0-6 UNITS BG 300-39... Q6HRS SQ Last administered on 07/20/18at 06:11; Start 07/20/18 at 00:00; Stop 07/21/18 at 10:21 ; Status DC Bisacodyl (Dulcolax Supp) 10 mg 1X ONCE [place] Last administered on 07/20/18at 18: 10; Start 07/20/18 at 10:45; Stop 07/20/18 at 10:46; Status DC Iohexol (Omnipaque 300 Mg/ml) 300 ml 1X ONCE PO Last administered on at 13:27; Start 07/20/18 at 13:00; Stop 07/20/18 at 13:02; Status DC Info (CONTRAST GIVEN -- Rx MONITORING) 1 each PRN DAILY PRN MC SEE COMMENTS; Start 07/20/18 at 13:15; Stop 07/22/18 at 13:14; Status DC Hydralazine HCl (Apresoline Inj) 25 mg PRN Q6HRS PRN IVP ELEVATED BP, SEE COMMENTS Last administered on 07/21/18at 18:21; Start 07/21/18 at 10:30 Insulin Human Lispro (HumaLOG) 0-6 UNITS BG 300-39... Q6HRS SQ Last administered on 07/22/18at 18:38; Start 07/21/18 at 12:00 Pantoprazole Sodium (Protonix) 40 mg DAILYAC PO ; Start 07/24/18 at 07:30 Active Scripts Active Pravastatin Sodium 40 Mg Tablet 1 Tab PO QHS 30 Days Cozaar (Losartan Potassium) 50 Mg Tablet 100 Mg PO DAILY 30 Days Klor-Con 10 (Potassium Chloride) 10 Meq Tablet.er 10 Meq PO DAILYWBKFT 30 Days Reported Hydrochlorothiazide Capsule (Hydrochlorothiazide) 12.5 Mg Capsule 12.5 Mg PO DAILY Levemir (Insulin Detemir) 100 Unit/1 Ml Vial 6 Unit SQ HS Centrum Silver Tablet (Multivits-Min/Fa/Lycopene/Lut) 1 Each Tablet 1 Each PO DAILY Aspirin 81 Mg Tab.chew 1 Tab PO DAILY Metformin Hcl 500 Mg Tablet 500 Mg PO HS Metformin Hcl 1,000 Mg Tablet 1,000 Mg PO DAILYWBKFT Carvedilol 25 Mg Tablet 25 Mg PO BIDWMEALS Vitals/I & O Vital Sign - Last 24 Hours 07/22/18 07/22/18 07/22/18 07/22/18 11:00 15:00 19:00 19:45 Temp 98.2 98.0 98.8 98.2 98.0 98.8 Pulse 88 86 84 Resp 16 16 20 B/P (MAP) 147/72 (97) 150/88 (108) 150/85 (106) Pulse Ox 97 96 99 O2 Delivery Room Air Room Air Room Air Room Air O2 Flow Rate 07/22/18 07/23/18 07/23/18 23:00 03:00 07:00 Temp 98.1 98.0 98.3 98.1 98.0 98.3 Pulse 88 89 80 Resp 20 20 16 B/P (MAP) 153/80 (104) 140/68 (92) 172/67 (102) Pulse Ox 100 96 94 O2 Delivery Room Air Room Air Room Air Intake and Output 07/22/18 07/22/18 07/23/18 14:59 22:59 06:59 Intake Total 240 ml Balance 240 ml DARIA MARTINEZ MD Jul 23, 2018 10:25
[2018-07-23 10:55] VITALS: BP 171/78
--- NOTE | 2018-07-23 12:27 | NUR ---
SW following pt. Currently advancing diet to full liquid. Plan will be home with Chuckie CLEARY upon dc. No other dc needs noted at this time.
--- NOTE | 2018-07-23 13:19 | PDOC ---
SURGICAL PROGRESS NOTE Subjective up to chair taking liquids in good spirits Vital Signs Vital Signs Date Time Temp Pulse Resp B/P (MAP) Pulse Ox O2 Delivery O2 Flow Rate FiO2 07/23/18 10:55 98.0 81 18 171/78 (109) 97 Room Air 98.0 07/22/18 19:00 I&O Intake and Output 07/23/18 07:00 Intake Total 240 ml Balance 240 ml Intake Oral 240 ml # Voids 3 # Bowel Movements 1 PATIENT HAS A GARCES: No General: Alert, Cooperative, No acute distress Abdomen: Soft Labs Laboratory Tests Test 07/21/18 18:31 07/22/18 00:02 07/22/18 03:50 07/22/18 06:13 Glucose (Fingerstick) 272 mg/dL (70-99) 163 mg/dL (70-99) 205 mg/dL (70-99) White Blood Count 8.3 x10^3/uL (4.0-11.0) Red Blood Count 3.48 x10^6/uL (3.50-5.40) Hemoglobin 10.8 g/dL (12.0-15.5) Hematocrit 33.2 % (36.0-47.0) Mean Corpuscular Volume 95 fL (79-100) Mean Corpuscular Hemoglobin 31 pg (25-35) Mean Corpuscular Hemoglobin Concent 33 g/dL (31-37) Red Cell Distribution Width 12.8 % (11.5-14.5) Platelet Count 271 x10^3/uL (140-400) Neutrophils (%) (Auto) 56 % (31-73) Lymphocytes (%) (Auto) 24 % (24-48) Monocytes (%) (Auto) 16 % (0-9) Eosinophils (%) (Auto) 4 % (0-3) Basophils (%) (Auto) 1 % (0-3) Neutrophils # (Auto) 4.6 x10^3uL (1.8-7.7) Lymphocytes # (Auto) 2.0 x10^3/uL (1.0-4.8) Monocytes # (Auto) 1.3 x10^3/uL (0.0-1.1) Eosinophils # (Auto) 0.3 x10^3/uL (0.0-0.7) Basophils # (Auto) 0.0 x10^3/uL (0.0-0.2) Sodium Level 135 mmol/L (136-145) Potassium Level 4.2 mmol/L (3.5-5.1) Chloride Level 100 mmol/L (98-107) Carbon Dioxide Level 25 mmol/L (21-32) Anion Gap 10 (6-14) Blood Urea Nitrogen 20 mg/dL (7-20) Creatinine 1.0 mg/dL (0.6-1.0) Estimated GFR (Cockcroft-Gault) 63.8 Glucose Level 214 mg/dL (70-99) Calcium Level 8.8 mg/dL (8.5-10.1) Test 07/22/18 12:16 07/22/18 18:31 07/23/18 00:27 07/23/18 06:12 Glucose (Fingerstick) 136 mg/dL (70-99) 227 mg/dL (70-99) 103 mg/dL (70-99) 175 mg/dL (70-99) Test 07/23/18 11:57 Glucose (Fingerstick) 214 mg/dL (70-99) Laboratory Tests Test 07/22/18 18:31 07/23/18 00:27 07/23/18 06:12 07/23/18 11:57 Glucose (Fingerstick) 227 mg/dL (70-99) 103 mg/dL (70-99) 175 mg/dL (70-99) 214 mg/dL (70-99) I have reviewed the following SBFT reviewed Assessment/Plan pSBO/ileus improved no surgical recs will sign off please call if needed Thank you CECI STEVE MD Jul 23, 2018 13:19
[2018-07-23] MEDS: ASPIRIN 325 MG TABLET PO SCH (13:25)
[2018-07-23] MEDS: LOSARTAN POTASSIUM 50 MG TABLET. PO SCH (13:26)
[2018-07-23] MEDS: hydroCHLOROthiazide 12.5 MG CAPSULE PO SCH (13:26)
[2018-07-23] MEDS: amLODIPine BESYLATE 10 MG TABLET PO SCH (13:26)
[2018-07-23] MEDS: ENOXAPARIN 40 MG/0.4 ML SYRINGE. SQ SCH (13:28)
[2018-07-23 14:56] VITALS: BP 155/70
[2018-07-23] MEDS: metFORMIN 500 MG TABLET PO SCH (18:13)
[2018-07-23] MEDS: CARVEDILOL 12.5 MG TABLET. PO SCH (18:14)
[2018-07-23 19:00] VITALS: BP 148/63
[2018-07-23] MEDS: INSULIN GLARGINE 300 UNITS/3 ML INSULN.PEN. SQ SCH (20:50)
[2018-07-23 23:00] VITALS: BP 126/57
[2018-07-24 03:03] VITALS: BP 140/74
[2018-07-24 05:09] LABS: CALCIUM 8.3 mg/dL (8.5-10.1); GFR 63.8
[2018-07-24 05:13] LABS: BASO % 1 % (0-3); EOS # 0.2 x10^3/uL (0.0-0.7); EOS % 3 % (0-3); HEMATOCRIT 28.7 % (36.0-47.0); HEMOGLOBIN 9.7 g/dL (12.0-15.5); LYMPH # 1.8 x10^3/uL (1.0-4.8); LYMPH % 27 % (24-48); MEAN CORPUSCULAR HEMOGLOBIN 32 pg (25-35); MEAN CORPUSCULAR HGB CONC 34 g/dL (31-37); MEAN CORPUSCULAR VOLUME 95 fL (79-100); MONO % 14 % (0-9); NEUT # 3.7 x10^3uL (1.8-7.7); NEUT % 55 % (31-73); PLATELET COUNT 266 x10^3/uL (140-400); RED BLOOD COUNT 3.01 x10^6/uL (3.50-5.40); RED CELL DISTRIBUTION WIDTH 13.1 % (11.5-14.5); WHITE BLOOD COUNT 6.7 x10^3/uL (4.0-11.0)
[2018-07-24 07:00] VITALS: BP 139/58
[2018-07-24] MEDS: CARVEDILOL 12.5 MG TABLET. PO SCH ×2 (08:32→17:00)
[2018-07-24] MEDS: LOSARTAN POTASSIUM 50 MG TABLET. PO SCH (08:32)
[2018-07-24] MEDS: hydroCHLOROthiazide 12.5 MG CAPSULE PO SCH (08:33)
[2018-07-24] MEDS: metFORMIN 500 MG TABLET PO SCH ×2 (08:33→17:00)
[2018-07-24] MEDS: PANTOPRAZOLE 40 MG TABLET.DR. PO SCH (08:33)
[2018-07-24] MEDS: amLODIPine BESYLATE 10 MG TABLET PO SCH (08:33)
[2018-07-24] MEDS: ASPIRIN 325 MG TABLET PO SCH (08:33)
[2018-07-24] MEDS: INSULIN LISPRO 300 UNITS/3 ML INSULN.PEN. SQ SCH ×3 (08:39→17:00)
[2018-07-24 11:00] VITALS: BP 108/51
--- NOTE | 2018-07-24 11:13 | PDOC ---
Subjective: Subjective: Tolerating PO and stooling, says might get to leave today. Objective: Vital Signs: Vital Signs Date Time Temp Pulse Resp B/P (MAP) Pulse Ox O2 Delivery O2 Flow Rate FiO2 07/24/18 08:33 81 140/74 07/24/18 08:00 Room Air 07/24/18 07:00 98.2 17 96 98.2 Labs: Laboratory Tests Test 07/23/18 11:57 07/23/18 17:56 07/23/18 20:13 07/24/18 03:40 Glucose (Fingerstick) 214 mg/dL 250 mg/dL 247 mg/dL White Blood Count 6.7 x10^3/uL Red Blood Count 3.01 x10^6/uL Hemoglobin 9.7 g/dL Hematocrit 28.7 % Mean Corpuscular Volume 95 fL Mean Corpuscular Hemoglobin 32 pg Mean Corpuscular Hemoglobin Concent 34 g/dL Red Cell Distribution Width 13.1 % Platelet Count 266 x10^3/uL Neutrophils (%) (Auto) 55 % Lymphocytes (%) (Auto) 27 % Monocytes (%) (Auto) 14 % Eosinophils (%) (Auto) 3 % Basophils (%) (Auto) 1 % Neutrophils # (Auto) 3.7 x10^3uL Lymphocytes # (Auto) 1.8 x10^3/uL Monocytes # (Auto) 1.0 x10^3/uL Eosinophils # (Auto) 0.2 x10^3/uL Basophils # (Auto) 0.0 x10^3/uL Sodium Level 138 mmol/L Potassium Level 4.0 mmol/L Chloride Level 102 mmol/L Carbon Dioxide Level 27 mmol/L Anion Gap 9 Blood Urea Nitrogen 14 mg/dL Creatinine 1.0 mg/dL Estimated GFR (Cockcroft-Gault) 63.8 Glucose Level 208 mg/dL Calcium Level 8.3 mg/dL Test 07/24/18 07:25 Glucose (Fingerstick) 190 mg/dL PE: GEN: NAD LUNGS: CTAB HEART: RRR ABD: NABS, S/ND/NT NEURO/PSYCH: A & O 3 A/P: Partial SBO - resolved -- DC per primary. DAMON EATON Jul 24, 2018 11:13
[2018-07-24] MEDS: ENOXAPARIN 40 MG/0.4 ML SYRINGE. SQ SCH (12:41)
--- NOTE | 2018-07-24 12:47 | PDOC ---
PROGRESS NOTES Subjective Subjective tolerates full liquids. had 2 BM. feels better. lab reviewed. Objective Objective Vital Signs Date Time Temp Pulse Resp B/P (MAP) Pulse Ox O2 Delivery O2 Flow Rate FiO2 07/24/18 11:00 98.2 78 18 108/51 (70) 97 Room Air 98.2 07/22/18 19:00 Intake and Output 07/24/18 06:59 Intake Total 1150 ml Balance 1150 ml Intake Oral 1150 ml # Voids 7 # Bowel Movements 1 Physical Exam Abdomen: Normal bowel sounds, Soft, No tenderness Heart: Regular rate, Normal S1, Normal S2 Extremities: No edema General: Alert HEENT: Atraumatic Lungs: Clear to auscultation Neuro: Normal speech Psych/Mental Status: Mental status NL Skin: No rashes Assessment Assessment 1. Acute kidney injury secondary to dehydration resolved 2. Partial distal SBO resolved 3. Hypertension. bp high 4. Diabetes mellitus type 2 5. Gastroesophageal reflux disease. 6. Hyperlipidemia. 7. Atypical chest pain resolved secondary pulmonary hypertension suspect due to obesity Plan Plan of Care advance to ada diet possible dismissal tomorrow Comment Review of Relevant I have reviewed the following items brandon (where applicable) has been applied. Labs Laboratory Tests Test 07/22/18 18:31 07/23/18 00:27 07/23/18 06:12 07/23/18 11:57 Glucose (Fingerstick) 227 mg/dL (70-99) 103 mg/dL (70-99) 175 mg/dL (70-99) 214 mg/dL (70-99) Test 07/23/18 17:56 07/23/18 20:13 07/24/18 03:40 07/24/18 07:25 Glucose (Fingerstick) 250 mg/dL (70-99) 247 mg/dL (70-99) 190 mg/dL (70-99) White Blood Count 6.7 x10^3/uL (4.0-11.0) Red Blood Count 3.01 x10^6/uL (3.50-5.40) Hemoglobin 9.7 g/dL (12.0-15.5) Hematocrit 28.7 % (36.0-47.0) Mean Corpuscular Volume 95 fL (79-100) Mean Corpuscular Hemoglobin 32 pg (25-35) Mean Corpuscular Hemoglobin Concent 34 g/dL (31-37) Red Cell Distribution Width 13.1 % (11.5-14.5) Platelet Count 266 x10^3/uL (140-400) Neutrophils (%) (Auto) 55 % (31-73) Lymphocytes (%) (Auto) 27 % (24-48) Monocytes (%) (Auto) 14 % (0-9) Eosinophils (%) (Auto) 3 % (0-3) Basophils (%) (Auto) 1 % (0-3) Neutrophils # (Auto) 3.7 x10^3uL (1.8-7.7) Lymphocytes # (Auto) 1.8 x10^3/uL (1.0-4.8) Monocytes # (Auto) 1.0 x10^3/uL (0.0-1.1) Eosinophils # (Auto) 0.2 x10^3/uL (0.0-0.7) Basophils # (Auto) 0.0 x10^3/uL (0.0-0.2) Sodium Level 138 mmol/L (136-145) Potassium Level 4.0 mmol/L (3.5-5.1) Chloride Level 102 mmol/L (98-107) Carbon Dioxide Level 27 mmol/L (21-32) Anion Gap 9 (6-14) Blood Urea Nitrogen 14 mg/dL (7-20) Creatinine 1.0 mg/dL (0.6-1.0) Estimated GFR (Cockcroft-Gault) 63.8 Glucose Level 208 mg/dL (70-99) Calcium Level 8.3 mg/dL (8.5-10.1) Test 07/24/18 11:20 Glucose (Fingerstick) 254 mg/dL (70-99) Laboratory Tests Test 07/23/18 17:56 07/23/18 20:13 07/24/18 03:40 07/24/18 07:25 Glucose (Fingerstick) 250 mg/dL (70-99) 247 mg/dL (70-99) 190 mg/dL (70-99) White Blood Count 6.7 x10^3/uL (4.0-11.0) Red Blood Count 3.01 x10^6/uL (3.50-5.40) Hemoglobin 9.7 g/dL (12.0-15.5) Hematocrit 28.7 % (36.0-47.0) Mean Corpuscular Volume 95 fL (79-100) Mean Corpuscular Hemoglobin 32 pg (25-35) Mean Corpuscular Hemoglobin Concent 34 g/dL (31-37) Red Cell Distribution Width 13.1 % (11.5-14.5) Platelet Count 266 x10^3/uL (140-400) Neutrophils (%) (Auto) 55 % (31-73) Lymphocytes (%) (Auto) 27 % (24-48) Monocytes (%) (Auto) 14 % (0-9) Eosinophils (%) (Auto) 3 % (0-3) Basophils (%) (Auto) 1 % (0-3) Neutrophils # (Auto) 3.7 x10^3uL (1.8-7.7) Lymphocytes # (Auto) 1.8 x10^3/uL (1.0-4.8) Monocytes # (Auto) 1.0 x10^3/uL (0.0-1.1) Eosinophils # (Auto) 0.2 x10^3/uL (0.0-0.7) Basophils # (Auto) 0.0 x10^3/uL (0.0-0.2) Sodium Level 138 mmol/L (136-145) Potassium Level 4.0 mmol/L (3.5-5.1) Chloride Level 102 mmol/L (98-107) Carbon Dioxide Level 27 mmol/L (21-32) Anion Gap 9 (6-14) Blood Urea Nitrogen 14 mg/dL (7-20) Creatinine 1.0 mg/dL (0.6-1.0) Estimated GFR (Cockcroft-Gault) 63.8 Glucose Level 208 mg/dL (70-99) Calcium Level 8.3 mg/dL (8.5-10.1) Test 07/24/18 11:20 Glucose (Fingerstick) 254 mg/dL (70-99) Microbiology 07/17/18 Urine Culture - Final, Complete 07/17/18 Urine Culture Result 1 ([facility]) - Final, Complete Medications Current Medications Sodium Chloride 1,000 ml @ 60 mls/hr [id number] IV ; Start 07/15/18 at 17:30; Stop 07/16/18 at 10:16; Status DC Insulin Human Lispro (HumaLOG) 0-5 UNITS TIDWMEALS SQ Last administered on 07/16at 12:20; Start 07/15/18 at 17:30; Stop 07/19/18 at 10:59; Status DC Dextrose (Dextrose 50%-Water Syringe) 12.5 gm PRN Q15MIN PRN IV SEE COMMENTS; Start 07/15/18 at 16:30 Ondansetron HCl (Zofran) 4 mg PRN Q6HRS PRN IV NAUSEA/VOMITING Last administered on 07/16/18at 11:43; Start 07/15/18 at 16:30 Acetaminophen (Tylenol) 325 mg PRN Q4HRS PRN PO MILD PAIN / TEMP; Start at 16:30; Stop 07/18/18 at 10:44; Status DC Acetaminophen (Tylenol) 650 mg PRN Q4HRS PRN PO MILD PAIN/TEMP, 2ND CHOICE; Start 07/15/18 at 16:30; Stop 07/18/18 at 10:44; Status DC Aspirin (Ecotrin) 81 mg DAILYWBKFT PO Last administered on 07/16/18at 08:51; Start 07/16/18 at 08:00; Stop 07/18/18 at 10:44; Status DC Carvedilol (Coreg) 25 mg BIDWMEALS PO Last administered on 07/16/18at 08:51; Start 07/15/18 at 17:30; Stop 07/18/18 at 10:44; Status DC Amlodipine Besylate (Norvasc) 5 mg DAILY PO Last administered on 07/16/18at 08: 51; Start 07/16/18 at 09:00; Stop 07/18/18 at 10:44; Status DC Al Hydroxide/Mg Hydroxide (Mylanta Plus Xs) 30 ml PRN Q2HR PRN PO HEARTBURN / GAS Last administered on 07/16/18at 11:42; Start 07/15/18 at 16:30; Stop at 10:44; Status DC Pantoprazole Sodium (Protonix) 40 mg DAILYAC PO Last administered on 07/16/18at 08:51; Start 07/16/18 at 07:30; Stop 07/16/18 at 13:18; Status DC Sucralfate (Carafate) 1 gm TIDWMEALHC PO Last administered on 07/16/18at 12:17; Start 07/15/18 at 22:00; Stop 07/18/18 at 10:44; Status DC Sodium Chloride 1,000 ml @ 75 mls/hr [id number] IV Last administered on at 01:19; Start 07/15/18 at 21:45; Stop 07/17/18 at 11:51; Status DC Iohexol (Omnipaque 240 Mg/ml) 30 ml 1X ONCE PO Last administered on 07/16/18at 10:30; Start 07/16/18 at 10:30; Stop 07/16/18 at 10:31; Status DC Info (CONTRAST GIVEN -- Rx MONITORING) 1 each PRN DAILY PRN MC SEE COMMENTS; Start 07/16/18 at 10:30; Stop 07/18/18 at 10:29; Status DC Pantoprazole Sodium (PROTONIX VIAL for IV PUSH) 40 mg 1X ONCE IVP ; Start 07/17 at 07:30; Stop 07/17/18 at 07:30; Status DC Pantoprazole Sodium (PROTONIX VIAL for IV PUSH) 40 mg DAILYAC IVP Last administered on 07/22/18at 07:59; Start 07/17/18 at 07:30; Stop 07/23/18 at 10:04; Status DC Lorazepam (Ativan) 0.5 mg PRN QHS PRN IV ANXIETY / AGITATION Last administered on 07/16/18at 21:29; Start 07/16/18 at 18:15; Stop 07/23/18 at 10:22; Status DC Potassium Chloride/Dextrose/ Sod Cl 1,000 ml @ 100 mls/hr Q10H IV Last administered on 07/17/18at 12:13; Start 07/17/18 at 12:00; Stop 07/17/18 at 12:18 ; Status DC Amino Acids/ Glycerin/ Electrolytes 1,000 ml @ 40 mls/hr Q24H IV Last administered on 07/23/18at 07:13; Start 07/17/18 at 13:00; Stop 07/23/18 at 20:08; Status DC Enoxaparin Sodium (Lovenox 30mg Syringe) 30 mg Q24H SQ Last administered on at 13:04; Start 07/18/18 at 12:00; Stop 07/19/18 at 10:59; Status DC Clonidine HCl (Catapres Tts-2) 1 patch Fr TD ; Start 08/18/18 at 11:00; Stop at 11:00; Status DC Hydralazine HCl (Apresoline Inj) 10 mg PRN Q6HRS PRN IVP ELEVATED BP, SEE COMMENTS Last administered on 07/18/18at 11:06; Start 07/18/18 at 10:45; Stop 07/21/18 at 10:21; Status DC Clonidine HCl (Catapres Tts-2) 1 patch Fr TD Last administered on 07/18/18at 14: 59; Start 07/18/18 at 14:00; Stop 07/23/18 at 10:22; Status DC Enoxaparin Sodium (Lovenox 40mg Syringe) 40 mg Q24H SQ Last administered on 07/23at 13:28; Start 07/19/18 at 12:00 Insulin Human Lispro (HumaLOG) 0-6 UNITS BG 300-39... TIDWMEALS SQ ; Start 07/19 at 12:00; Stop 07/19/18 at 19:17; Status DC Insulin Human Lispro (HumaLOG) 0-6 UNITS BG 300-39... Q6HRS SQ Last administered on 07/20/18at 06:11; Start 07/20/18 at 00:00; Stop 07/21/18 at 10:21 ; Status DC Bisacodyl (Dulcolax Supp) 10 mg 1X ONCE [place] Last administered on 07/20/18at 18: 10; Start 07/20/18 at 10:45; Stop 07/20/18 at 10:46; Status DC Iohexol (Omnipaque 300 Mg/ml) 300 ml 1X ONCE PO Last administered on at 13:27; Start 07/20/18 at 13:00; Stop 07/20/18 at 13:02; Status DC Info (CONTRAST GIVEN -- Rx MONITORING) 1 each PRN DAILY PRN MC SEE COMMENTS; Start 07/20/18 at 13:15; Stop 07/22/18 at 13:14; Status DC Hydralazine HCl (Apresoline Inj) 25 mg PRN Q6HRS PRN IVP ELEVATED BP, SEE COMMENTS Last administered on 07/21/18 18:21; Start 07/21/18 at 10:30; Stop at 10:22; Status DC Insulin Human Lispro (HumaLOG) 0-6 UNITS BG 300-39... Q6HRS SQ Last administered on 07/22/18 18:38; Start 07/21/18 at 12:00; Stop 07/23/18 at 10:22; Status DC Pantoprazole Sodium (Protonix) 40 mg DAILYAC PO Last administered on 07/24/18 08:33; Start 07/24/18 at 07:30 Amlodipine Besylate (Norvasc) 10 mg DAILY PO Last administered on 07/24/18 08: 33; Start 07/23/18 at 11:00 Losartan Potassium (Cozaar) 100 mg DAILY PO Last administered on 07/24/18 08:32 ; Start 07/23/18 at 11:00 Carvedilol (Coreg) 25 mg BIDWMEALS PO Last administered on 07/24/18 08:32; Start 07/23/18 at 17:00 Hydrochlorothiazide (Microzide) 12.5 mg DAILY PO Last administered on 07/24/18 08:33; Start 07/23/18 at 11:00 Insulin Glargine (Lantus) 6 units QHS SQ Last administered on 07/23/18 20:50; Start 07/23/18 at 21:00 Metformin HCl (Glucophage) 500 mg BIDWMEALS PO Last administered on 07/24/18 08 :33; Start 07/23/18 at 17:00 Aspirin (Radha Aspirin) 81 mg DAILY PO Last administered on 07/24/18 08:33; Start 07/23/18 at 11:00 Insulin Human Lispro (HumaLOG) 0-6 UNITS BG 300-39... TIDWMEALS SQ Last administered on 07/24/18 08:39; Start 07/23/18 at 12:00 Active Scripts Active Pravastatin Sodium 40 Mg Tablet 1 Tab PO QHS 30 Days Cozaar (Losartan Potassium) 50 Mg Tablet 100 Mg PO DAILY 30 Days Klor-Con 10 (Potassium Chloride) 10 Meq Tablet.er 10 Meq PO DAILYWBKFT 30 Days Reported Hydrochlorothiazide Capsule (Hydrochlorothiazide) 12.5 Mg Capsule 12.5 Mg PO DAILY Levemir (Insulin Detemir) 100 Unit/1 Ml Vial 6 Unit SQ HS Centrum Silver Tablet (Multivits-Min/Fa/Lycopene/Lut) 1 Each Tablet 1 Each PO DAILY Aspirin 81 Mg Tab.chew 1 Tab PO DAILY Metformin Hcl 500 Mg Tablet 500 Mg PO HS Metformin Hcl 1,000 Mg Tablet 1,000 Mg PO DAILYWBKFT Carvedilol 25 Mg Tablet 25 Mg PO BIDWMEALS Vitals/I & O Vital Sign - Last 24 Hours 07/23/18 07/23/18 07/23/18 07/23/18 13:26 13:26 14:56 18:14 Temp 98.1 98.1 Pulse 81 81 98 98 Resp 18 B/P (MAP) 171/78 171/78 155/70 (98) 155/70 Pulse Ox 100 O2 Delivery Room Air 07/23/18 07/23/18 07/23/18 07/24/18 19:00 19:30 23:00 03:03 Temp 98.2 97.7 98.0 98.2 97.7 98.0 Pulse 90 83 81 Resp 20 20 20 B/P (MAP) 148/63 (91) 126/57 (80) 140/74 (96) Pulse Ox 97 97 99 O2 Delivery Room Air Room Air Room Air Room Air 07/24/18 07/24/18 07/24/18 07/24/18 07:00 08:00 08:32 08:32 Temp 98.2 98.2 Pulse 80 81 81 Resp 17 B/P (MAP) 139/58 (85) 140/74 140/74 Pulse Ox 96 O2 Delivery Room Air Room Air 07/24/18 07/24/18 08:33 11:00 Temp 98.2 98.2 Pulse 81 78 Resp 18 B/P (MAP) 140/74 108/51 (70) Pulse Ox 97 O2 Delivery Room Air Intake and Output 07/23/18 07/23/18 07/24/18 14:59 22:59 06:59 Intake Total 850 ml 300 ml Balance 850 ml 300 ml DARIA MARTINEZ MD Jul 24, 2018 12:47
[2018-07-24 15:00] VITALS: BP 115/50
[2018-07-24 19:00] VITALS: BP 115/55
[2018-07-24] MEDS: INSULIN GLARGINE 300 UNITS/3 ML INSULN.PEN. SQ SCH (21:33)
[2018-07-24 23:00] VITALS: BP 125/61
[2018-07-25 03:00] VITALS: BP 121/71
[2018-07-25 05:40] LABS: BASO % 1 % (0-3); EOS # 0.2 x10^3/uL (0.0-0.7); EOS % 4 % (0-3); HEMATOCRIT 28.4 % (36.0-47.0); HEMOGLOBIN 9.4 g/dL (12.0-15.5); LYMPH # 1.9 x10^3/uL (1.0-4.8); LYMPH % 34 % (24-48); MEAN CORPUSCULAR HEMOGLOBIN 31 pg (25-35); MEAN CORPUSCULAR HGB CONC 33 g/dL (31-37); MEAN CORPUSCULAR VOLUME 95 fL (79-100); MONO # 0.6 x10^3/uL (0.0-1.1); MONO % 11 % (0-9); NEUT # 2.8 x10^3uL (1.8-7.7); NEUT % 50 % (31-73); PLATELET COUNT 271 x10^3/uL (140-400); RED CELL DISTRIBUTION WIDTH 13.3 % (11.5-14.5); WHITE BLOOD COUNT 5.7 x10^3/uL (4.0-11.0)
[2018-07-25 05:59] LABS: CALCIUM 8.4 mg/dL (8.5-10.1); CREATININE 1.1 mg/dL (0.6-1.0); GFR 57.1
[2018-07-25 07:10] VITALS: BP 139/59
[2018-07-25] MEDS: hydroCHLOROthiazide 12.5 MG CAPSULE PO SCH (08:36)
[2018-07-25] MEDS: CARVEDILOL 12.5 MG TABLET. PO SCH (08:37)
[2018-07-25] MEDS: LOSARTAN POTASSIUM 50 MG TABLET. PO SCH (08:37)
[2018-07-25] MEDS: amLODIPine BESYLATE 10 MG TABLET PO SCH (08:38)
[2018-07-25] MEDS: metFORMIN 500 MG TABLET PO SCH (08:38)
[2018-07-25] MEDS: ASPIRIN 325 MG TABLET PO SCH (08:38)
[2018-07-25] MEDS: INSULIN LISPRO 300 UNITS/3 ML INSULN.PEN. SQ SCH ×2 (08:43→12:00)
[2018-07-25] MEDS: PANTOPRAZOLE 40 MG TABLET.DR. PO SCH (09:46)
--- NOTE | 2018-07-25 10:47 | PDOC ---
PROGRESS NOTES Subjective Subjective eating well. bowels are okay . ambulatory. lab reviewed. feels well Objective Objective Vital Signs Date Time Temp Pulse Resp B/P (MAP) Pulse Ox O2 Delivery O2 Flow Rate FiO2 07/25/18 08:38 81 139/59 07/25/18 08:00 Room Air 07/25/18 07:10 98.1 17 96 98.1 07/22/18 19:00 Intake and Output 07/25/18 07:00 Intake Total 1230 ml Output Total 400 ml Balance 830 ml Intake Oral 1230 ml Output Urine Total 400 ml # Voids 1 Physical Exam Abdomen: Normal bowel sounds, Soft, No tenderness Heart: Regular rate, Normal S1, Normal S2 Extremities: No edema General: Alert HEENT: Atraumatic Lungs: Clear to auscultation Neuro: Normal speech Psych/Mental Status: Mental status NL Skin: No rashes Assessment Assessment Assessment 1. Acute kidney injury secondary to dehydration resolved 2. Partial distal SBO resolved 3. Hypertension. bp high 4. Diabetes mellitus type 2 5. Gastroesophageal reflux disease. 6. Hyperlipidemia. 7. 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 Labs Laboratory Tests Test 07/23/18 11:57 07/23/18 17:56 07/23/18 20:13 07/24/18 03:40 Glucose (Fingerstick) 214 mg/dL (70-99) 250 mg/dL (70-99) 247 mg/dL (70-99) White Blood Count 6.7 x10^3/uL (4.0-11.0) Red Blood Count 3.01 x10^6/uL (3.50-5.40) Hemoglobin 9.7 g/dL (12.0-15.5) Hematocrit 28.7 % (36.0-47.0) Mean Corpuscular Volume 95 fL (79-100) Mean Corpuscular Hemoglobin 32 pg (25-35) Mean Corpuscular Hemoglobin Concent 34 g/dL (31-37) Red Cell Distribution Width 13.1 % (11.5-14.5) Platelet Count 266 x10^3/uL (140-400) Neutrophils (%) (Auto) 55 % (31-73) Lymphocytes (%) (Auto) 27 % (24-48) Monocytes (%) (Auto) 14 % (0-9) Eosinophils (%) (Auto) 3 % (0-3) Basophils (%) (Auto) 1 % (0-3) Neutrophils # (Auto) 3.7 x10^3uL (1.8-7.7) Lymphocytes # (Auto) 1.8 x10^3/uL (1.0-4.8) Monocytes # (Auto) 1.0 x10^3/uL (0.0-1.1) Eosinophils # (Auto) 0.2 x10^3/uL (0.0-0.7) Basophils # (Auto) 0.0 x10^3/uL (0.0-0.2) Sodium Level 138 mmol/L (136-145) Potassium Level 4.0 mmol/L (3.5-5.1) Chloride Level 102 mmol/L (98-107) Carbon Dioxide Level 27 mmol/L (21-32) Anion Gap 9 (6-14) Blood Urea Nitrogen 14 mg/dL (7-20) Creatinine 1.0 mg/dL (0.6-1.0) Estimated GFR (Cockcroft-Gault) 63.8 Glucose Level 208 mg/dL (70-99) Calcium Level 8.3 mg/dL (8.5-10.1) Test 07/24/18 07:25 07/24/18 11:20 07/24/18 16:52 07/24/18 20:44 Glucose (Fingerstick) 190 mg/dL (70-99) 254 mg/dL (70-99) 142 mg/dL (70-99) 206 mg/dL (70-99) Test 07/25/18 04:52 07/25/18 07:14 White Blood Count 5.7 x10^3/uL (4.0-11.0) Red Blood Count 3.00 x10^6/uL (3.50-5.40) Hemoglobin 9.4 g/dL (12.0-15.5) Hematocrit 28.4 % (36.0-47.0) Mean Corpuscular Volume 95 fL (79-100) Mean Corpuscular Hemoglobin 31 pg (25-35) Mean Corpuscular Hemoglobin Concent 33 g/dL (31-37) Red Cell Distribution Width 13.3 % (11.5-14.5) Platelet Count 271 x10^3/uL (140-400) Neutrophils (%) (Auto) 50 % (31-73) Lymphocytes (%) (Auto) 34 % (24-48) Monocytes (%) (Auto) 11 % (0-9) Eosinophils (%) (Auto) 4 % (0-3) Basophils (%) (Auto) 1 % (0-3) Neutrophils # (Auto) 2.8 x10^3uL (1.8-7.7) Lymphocytes # (Auto) 1.9 x10^3/uL (1.0-4.8) Monocytes # (Auto) 0.6 x10^3/uL (0.0-1.1) Eosinophils # (Auto) 0.2 x10^3/uL (0.0-0.7) Basophils # (Auto) 0.0 x10^3/uL (0.0-0.2) Sodium Level 139 mmol/L (136-145) Potassium Level 4.0 mmol/L (3.5-5.1) Chloride Level 103 mmol/L (98-107) Carbon Dioxide Level 25 mmol/L (21-32) Anion Gap 11 (6-14) Blood Urea Nitrogen 14 mg/dL (7-20) Creatinine 1.1 mg/dL (0.6-1.0) Estimated GFR (Cockcroft-Gault) 57.1 Glucose Level 166 mg/dL (70-99) Calcium Level 8.4 mg/dL (8.5-10.1) Glucose (Fingerstick) 180 mg/dL (70-99) Laboratory Tests Test 07/24/18 11:20 07/24/18 16:52 07/24/18 20:44 07/25/18 04:52 Glucose (Fingerstick) 254 mg/dL (70-99) 142 mg/dL (70-99) 206 mg/dL (70-99) White Blood Count 5.7 x10^3/uL (4.0-11.0) Red Blood Count 3.00 x10^6/uL (3.50-5.40) Hemoglobin 9.4 g/dL (12.0-15.5) Hematocrit 28.4 % (36.0-47.0) Mean Corpuscular Volume 95 fL (79-100) Mean Corpuscular Hemoglobin 31 pg (25-35) Mean Corpuscular Hemoglobin Concent 33 g/dL (31-37) Red Cell Distribution Width 13.3 % (11.5-14.5) Platelet Count 271 x10^3/uL (140-400) Neutrophils (%) (Auto) 50 % (31-73) Lymphocytes (%) (Auto) 34 % (24-48) Monocytes (%) (Auto) 11 % (0-9) Eosinophils (%) (Auto) 4 % (0-3) Basophils (%) (Auto) 1 % (0-3) Neutrophils # (Auto) 2.8 x10^3uL (1.8-7.7) Lymphocytes # (Auto) 1.9 x10^3/uL (1.0-4.8) Monocytes # (Auto) 0.6 x10^3/uL (0.0-1.1) Eosinophils # (Auto) 0.2 x10^3/uL (0.0-0.7) Basophils # (Auto) 0.0 x10^3/uL (0.0-0.2) Sodium Level 139 mmol/L (136-145) Potassium Level 4.0 mmol/L (3.5-5.1) Chloride Level 103 mmol/L (98-107) Carbon Dioxide Level 25 mmol/L (21-32) Anion Gap 11 (6-14) Blood Urea Nitrogen 14 mg/dL (7-20) Creatinine 1.1 mg/dL (0.6-1.0) Estimated GFR (Cockcroft-Gault) 57.1 Glucose Level 166 mg/dL (70-99) Calcium Level 8.4 mg/dL (8.5-10.1) Test 07/25/18 07:14 Glucose (Fingerstick) 180 mg/dL (70-99) Microbiology 07/17/18 Urine Culture - Final, Complete 07/17/18 Urine Culture Result 1 ([facility]) - Final, Complete Medications Current Medications Sodium Chloride 1,000 ml @ 60 mls/hr [id number] IV ; Start 07/15/18 at 17:30; Stop 07/16/18 at 10:16; Status DC Insulin Human Lispro (HumaLOG) 0-5 UNITS TIDWMEALS SQ Last administered on 07/16 12:20; Start 07/15/18 at 17:30; Stop 07/19/18 at 10:59; Status DC Dextrose (Dextrose 50%-Water Syringe) 12.5 gm PRN Q15MIN PRN IV SEE COMMENTS; Start 07/15/18 at 16:30 Ondansetron HCl (Zofran) 4 mg PRN Q6HRS PRN IV NAUSEA/VOMITING Last administered on 07/16/18at 11:43; Start 07/15/18 at 16:30 Acetaminophen (Tylenol) 325 mg PRN Q4HRS PRN PO MILD PAIN / TEMP; Start at 16:30; Stop 07/18/18 at 10:44; Status DC Acetaminophen (Tylenol) 650 mg PRN Q4HRS PRN PO MILD PAIN/TEMP, 2ND CHOICE; Start 07/15/18 at 16:30; Stop 07/18/18 at 10:44; Status DC Aspirin (Ecotrin) 81 mg DAILYWBKFT PO Last administered on 07/16/18 08:51; Start 07/16/18 at 08:00; Stop 07/18/18 at 10:44; Status DC Carvedilol (Coreg) 25 mg BIDWMEALS PO Last administered on 07/16/18 08:51; Start 07/15/18 at 17:30; Stop 07/18/18 at 10:44; Status DC Amlodipine Besylate (Norvasc) 5 mg DAILY PO Last administered on 07/16/18 08: 51; Start 07/16/18 at 09:00; Stop 07/18/18 at 10:44; Status DC Al Hydroxide/Mg Hydroxide (Mylanta Plus Xs) 30 ml PRN Q2HR PRN PO HEARTBURN / GAS Last administered on 07/16/18 11:42; Start 07/15/18 at 16:30; Stop at 10:44; Status DC Pantoprazole Sodium (Protonix) 40 mg DAILYAC PO Last administered on 07/16/18 08:51; Start 07/16/18 at 07:30; Stop 07/16/18 at 13:18; Status DC Sucralfate (Carafate) 1 gm TIDWMEALHC PO Last administered on 3/27/19at 12:17; Start 07/15/18 at 22:00; Stop 07/18/18 at 10:44; Status DC Sodium Chloride 1,000 ml @ 75 mls/hr [id number] IV Last administered on at 01:19; Start 07/15/18 at 21:45; Stop 07/17/18 at 11:51; Status DC Iohexol (Omnipaque 240 Mg/ml) 30 ml 1X ONCE PO Last administered on 07/16/18at 10:30; Start 07/16/18 at 10:30; Stop 07/16/18 at 10:31; Status DC Info (CONTRAST GIVEN -- Rx MONITORING) 1 each PRN DAILY PRN MC SEE COMMENTS; Start 07/16/18 at 10:30; Stop 07/18/18 at 10:29; Status DC Pantoprazole Sodium (PROTONIX VIAL for IV PUSH) 40 mg 1X ONCE IVP ; Start 07/17 at 07:30; Stop 07/17/18 at 07:30; Status DC Pantoprazole Sodium (PROTONIX VIAL for IV PUSH) 40 mg DAILYAC IVP Last administered on 07/22/18 07:59; Start 07/17/18 at 07:30; Stop 07/23/18 at 10:04; Status DC Lorazepam (Ativan) 0.5 mg PRN QHS PRN IV ANXIETY / AGITATION Last administered on 07/16/18at 21:29; Start 07/16/18 at 18:15; Stop 07/23/18 at 10:22; Status DC Potassium Chloride/Dextrose/ Sod Cl 1,000 ml @ 100 mls/hr Q10H IV Last administered on 07/17/18at 12:13; Start 07/17/18 at 12:00; Stop 07/17/18 at 12:18 ; Status DC Amino Acids/ Glycerin/ Electrolytes 1,000 ml @ 40 mls/hr Q24H IV Last administered on 07/23/18 07:13; Start 07/17/18 at 13:00; Stop 07/23/18 at 20:08; Status DC Enoxaparin Sodium (Lovenox 30mg Syringe) 30 mg Q24H SQ Last administered on at 13:04; Start 07/18/18 at 12:00; Stop 07/19/18 at 10:59; Status DC Clonidine HCl (Catapres Tts-2) 1 patch Fr TD ; Start 08/18/18 at 11:00; Stop at 11:00; Status DC Hydralazine HCl (Apresoline Inj) 10 mg PRN Q6HRS PRN IVP ELEVATED BP, SEE COMMENTS Last administered on 07/18/18at 11:06; Start 07/18/18 at 10:45; Stop 07/21/18 at 10:21; Status DC Clonidine HCl (Catapres Tts-2) 1 patch Fr TD Last administered on 07/18/18at 14: 59; Start 07/18/18 at 14:00; Stop 07/23/18 at 10:22; Status DC Enoxaparin Sodium (Lovenox 40mg Syringe) 40 mg Q24H SQ Last administered on 07/24at 12:41; Start 07/19/18 at 12:00 Insulin Human Lispro (HumaLOG) 0-6 UNITS BG 300-39... TIDWMEALS SQ ; Start 07/19 at 12:00; Stop 07/19/18 at 19:17; Status DC Insulin Human Lispro (HumaLOG) 0-6 UNITS BG 300-39... Q6HRS SQ Last administered on 07/20/18at 06:11; Start 07/20/18 at 00:00; Stop 07/21/18 at 10:21 ; Status DC Bisacodyl (Dulcolax Supp) 10 mg 1X ONCE ID Last administered on 07/20/18at 18: 10; Start 07/20/18 at 10:45; Stop 07/20/18 at 10:46; Status DC Iohexol (Omnipaque 300 Mg/ml) 300 ml 1X ONCE PO Last administered on at 13:27; Start 07/20/18 at 13:00; Stop 07/20/18 at 13:02; Status DC Info (CONTRAST GIVEN -- Rx MONITORING) 1 each PRN DAILY PRN MC SEE COMMENTS; Start 07/20/18 at 13:15; Stop 07/22/18 at 13:14; Status DC Hydralazine HCl (Apresoline Inj) 25 mg PRN Q6HRS PRN IVP ELEVATED BP, SEE COMMENTS Last administered on 07/21/18 18:21; Start 07/21/18 at 10:30; Stop at 10:22; Status DC Insulin Human Lispro (HumaLOG) 0-6 UNITS BG 300-39... Q6HRS SQ Last administered on 07/22/18 18:38; Start 07/21/18 at 12:00; Stop 07/23/18 at 10:22; Status DC Pantoprazole Sodium (Protonix) 40 mg DAILYAC PO Last administered on 07/25/18 09:46; Start 07/24/18 at 07:30 Amlodipine Besylate (Norvasc) 10 mg DAILY PO Last administered on 07/25/18 08: 38; Start 07/23/18 at 11:00 Losartan Potassium (Cozaar) 100 mg DAILY PO Last administered on 07/25/18 08:37 ; Start 07/23/18 at 11:00 Carvedilol (Coreg) 25 mg BIDWMEALS PO Last administered on 07/25/18 08:37; Start 07/23/18 at 17:00 Hydrochlorothiazide (Microzide) 12.5 mg DAILY PO Last administered on 07/25/18 08:36; Start 07/23/18 at 11:00 Insulin Glargine (Lantus) 6 units QHS SQ Last administered on 07/24/18 21:33; Start 07/23/18 at 21:00 Metformin HCl (Glucophage) 500 mg BIDWMEALS PO Last administered on 07/25/18 08 :38; Start 07/23/18 at 17:00 Aspirin (Radha Aspirin) 81 mg DAILY PO Last administered on 07/25/18 08:38; Start 07/23/18 at 11:00 Insulin Human Lispro (HumaLOG) 0-6 UNITS BG 300-39... TIDWMEALS SQ Last administered on 07/25/18 08:43; Start 07/23/18 at 12:00 Active Scripts Active Pravastatin Sodium 40 Mg Tablet 1 Tab PO QHS 30 Days Cozaar (Losartan Potassium) 50 Mg Tablet 100 Mg PO DAILY 30 Days Klor-Con 10 (Potassium Chloride) 10 Meq Tablet.er 10 Meq PO DAILYWBKFT 30 Days Reported Hydrochlorothiazide Capsule (Hydrochlorothiazide) 12.5 Mg Capsule 12.5 Mg PO DAILY Levemir (Insulin Detemir) 100 Unit/1 Ml Vial 6 Unit SQ HS Centrum Silver Tablet (Multivits-Min/Fa/Lycopene/Lut) 1 Each Tablet 1 Each PO DAILY Aspirin 81 Mg Tab.chew 1 Tab PO DAILY Metformin Hcl 500 Mg Tablet 500 Mg PO HS Metformin Hcl 1,000 Mg Tablet 1,000 Mg PO DAILYWBKFT Carvedilol 25 Mg Tablet 25 Mg PO BIDWMEALS Vitals/I & O Vital Sign - Last 24 Hours 07/24/18 07/24/18 07/24/18 07/24/18 11:00 15:00 17:00 19:00 Temp 98.2 97.8 98.1 98.2 97.8 98.1 Pulse 78 72 72 71 Resp 18 17 17 B/P (MAP) 108/51 (70) 115/50 (71) 115/50 115/55 (75) Pulse Ox 97 97 96 O2 Delivery Room Air Room Air Room Air 07/24/18 07/24/18 07/25/18 07/25/18 20:00 23:00 03:00 07:10 Temp 98.1 98.0 98.1 98.1 98.0 98.1 Pulse 69 61 81 Resp 17 17 17 B/P (MAP) 125/61 (82) 121/71 (88) 139/59 (85) Pulse Ox 98 95 96 O2 Delivery Room Air Room Air Room Air Room Air 07/25/18 07/25/18 07/25/18 07/25/18 08:00 08:37 08:37 08:38 Pulse 81 81 81 B/P (MAP) 139/59 139/59 139/59 O2 Delivery Room Air Intake and Output 07/24/18 07/24/18 07/25/18 15:00 23:00 07:00 Intake Total 640 ml 320 ml 270 ml Output Total 400 ml Balance 640 ml 320 ml -130 ml DARIA MARTINEZ MD Jul 25, 2018 10:47
--- NOTE | 2018-07-25 10:49 | DISCH ---
DISCHARGE INSTRUCTIONS Condition on Discharge Condition on Discharge: Stable Activity After Discharge Activity Instructions for Disc: Resume previous activity Diet after Discharge Diet after Discharge: Diabetic No Calorie Level Liquid Texture: Thin Liquid Contacting the DR. after DC Call your doctor for: If your condition worsens Follow-Up Follow up with: dr. martinez next week DARIA MARTINEZ MD Jul 25, 2018 10:49
--- NOTE | 2018-07-25 10:53 | PDOC ---
Provider Note Provider Note discharge summary dictated # [id number] DARIA MARTINEZ MD Jul 25, 2018 10:53
[2018-07-25 11:00] VITALS: BP 116/47
--- NOTE | 2018-07-25 11:15 | PDOC ---
Subjective: Subjective: Doing well, glad to get to leave today. Objective: Vital Signs: Vital Signs Date Time Temp Pulse Resp B/P (MAP) Pulse Ox O2 Delivery O2 Flow Rate FiO2 07/25/18 08:38 81 139/59 07/25/18 08:00 Room Air 07/25/18 07:10 98.1 17 96 98.1 Labs: Laboratory Tests Test 07/24/18 11:20 07/24/18 16:52 07/24/18 20:44 07/25/18 04:52 Glucose (Fingerstick) 254 mg/dL 142 mg/dL 206 mg/dL White Blood Count 5.7 x10^3/uL Red Blood Count 3.00 x10^6/uL Hemoglobin 9.4 g/dL Hematocrit 28.4 % Mean Corpuscular Volume 95 fL Mean Corpuscular Hemoglobin 31 pg Mean Corpuscular Hemoglobin Concent 33 g/dL Red Cell Distribution Width 13.3 % Platelet Count 271 x10^3/uL Neutrophils (%) (Auto) 50 % Lymphocytes (%) (Auto) 34 % Monocytes (%) (Auto) 11 % Eosinophils (%) (Auto) 4 % Basophils (%) (Auto) 1 % Neutrophils # (Auto) 2.8 x10^3uL Lymphocytes # (Auto) 1.9 x10^3/uL Monocytes # (Auto) 0.6 x10^3/uL Eosinophils # (Auto) 0.2 x10^3/uL Basophils # (Auto) 0.0 x10^3/uL Sodium Level 139 mmol/L Potassium Level 4.0 mmol/L Chloride Level 103 mmol/L Carbon Dioxide Level 25 mmol/L Anion Gap 11 Blood Urea Nitrogen 14 mg/dL Creatinine 1.1 mg/dL Estimated GFR (Cockcroft-Gault) 57.1 Glucose Level 166 mg/dL Calcium Level 8.4 mg/dL Test 07/25/18 07:14 Glucose (Fingerstick) 180 mg/dL PE: GEN: NAD LUNGS: CTAB HEART: RRR ABD: S/ND/NT NEURO/PSYCH: A & O 3 A/P: Partial SBO - resolved -- DC per primary. DAMON EATON Jul 25, 2018 11:15
[2018-07-25] MEDS: ENOXAPARIN 40 MG/0.4 ML SYRINGE. SQ SCH (12:36)
--- NOTE | 2018-07-25 14:37 | NUR ---
Discharge Note: BAKARI MELÉNDEZ RINARD Discharge instructions and discharge home medications reviewed with Patient and a copy given. All questions have been answered and understanding verbalized. The following instructions and handouts were given: SBO Discontinued lines and drains: No lines or drains. Patient discharged to home with self care withvia Wheelchair escorted by Rachelle ALFREDO
--- NOTE | 2018-07-25 19:26 | DS ---
DATE OF DISCHARGE: 07/25/2018 CONSULTANTS: Include Dr. Bush, Dr. Mccarty, Dr. Valadez, and Dr. Montejo. FINAL DIAGNOSES: 1. Partial distal small-bowel obstruction, which resolved. 2. Acute kidney injury secondary to dehydration, resolved. 3. Hypertension. 4. Diabetes mellitus type 2. 5. Gastroesophageal reflux disease. 6. Hyperlipidemia. 7. Atypical chest pain, resolved. 8. 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 HOSPITAL COURSE: The patient is an 83-year-old -Luxembourger female with history of diabetes mellitus type 2, hypertension, hyperlipidemia, [facility] my office 07/15/2018 with a 4-day history of nausea and vomiting over the weekend and she had decreased intake of food and liquid and felt weak. She had some retrosternal chest pain, which attributed the vomiting. The patient was admitted to the hospital, was noted to have a distal small-bowel obstruction, treated with NG tube and n.p.o. and IV fluids and PPN and she had a small bowel follow through. When the barium did get through, her partial distal bowel obstruction improved and the NG tube was removed and she was started on clear liquids and advanced eventually to solid foods, which she tolerated well and had bowel movements. Her blood pressure and blood sugar were under good control. She was seen by Dr. Bush for General Surgery, seen by the automatic pinsetter mechanic and seen by Dr. Valadez for GI, seen by Dr. Mccarty for Nephrology. Her acute kidney injury resolved with hydration. She will be dismissed to home and told to make an appointment to see Dr. Wyatt next week. She will be dismissed on amlodipine 10 mg every day, aspirin 81 mg every day, carvedilol 25 mg b.i.d., hydrochlorothiazide 12.5 mg every day, Levemir 6 units at bedtime, losartan 100 mg every day, metformin 500 mg b.i.d. and pravastatin 40 mg every day. DARIA WYATT MD DR: GABRIELA/tosha JOB#: [id number] / [id number]
[2018-08-18] MEDS ORDERED: cloNIDine TTS-2 1 PATCH PATCH TD SCH (11:00)
== END 2018-07-25 14:40 | disposition home health service (06) | DRG 682 ==
LOC: 5 NORTH 15:41
PROVIDERS: ADMIT Internal Medicine; ATTEND Internal Medicine
PROC: 0D9670Z Drainage of Stomach with Drainage Device, Via Natural or Artificial Opening (ICD-10-PCS; principal; 2018-07-16)
DX: N17.0 Acute kidney failure with tubular necrosis (principal); G93.41 Metabolic encephalopathy; K56.600 Partial intestinal obstruction, unspecified as to cause; E86.0 Dehydration; I12.9 Hypertensive chronic kidney disease with stage 1 through stage 4 chronic kidney disease, or unspecified chronic kidney disease; E78.5 Hyperlipidemia, unspecified; E11.22 Type 2 diabetes mellitus with diabetic chronic kidney disease; E11.65 Type 2 diabetes mellitus with hyperglycemia; K21.9 Gastro-esophageal reflux disease without esophagitis; R63.0 Anorexia; N18.3 Chronic kidney disease, stage 3 (moderate); I25.10 Atherosclerotic heart disease of native coronary artery without angina pectoris; M19.90 Unspecified osteoarthritis, unspecified site; I27.29 Other secondary pulmonary hypertension; E66.9 Obesity, unspecified; D64.9 Anemia, unspecified; I07.1 Rheumatic tricuspid insufficiency; K57.30 Diverticulosis of large intestine without perforation or abscess without bleeding; Z95.1 Presence of aortocoronary bypass graft; Z90.49 Acquired absence of other specified parts of digestive tract; Z79.899 Other long term (current) drug therapy; Z79.4 Long term (current) use of insulin; Z79.82 Long term (current) use of aspirin; Z83.3 Family history of diabetes mellitus; Z82.49 Family history of ischemic heart disease and other diseases of the circulatory system; Z84.1 Family history of disorders of kidney and ureter; Z82.3 Family history of stroke; Z68.31 Body mass index [BMI] 31.0-31.9, adult; E11.43 Type 2 diabetes mellitus with diabetic autonomic (poly)neuropathy; K31.84 Gastroparesis
CPT/HCPCS: 36415; 71046; 71250; 74018; 74022; 74176; 74250; 80048; 80053; 80061; 81001; 82550; 82962; 83735; 84443; 84484; 85007; 85025; 87086; 93005; 93306; 94760; C9113; J0360; J1650; J1815; J2060; J2405; J7030; Q9966; Q9967; 97530

== ENCOUNTER → 2019-10-08 | Outpatient (CLI) | payer MEDICARE, MEDICAID ==
[~2019-10-08] MED LIST changes: +HYDR12.575 PO; +INSU100V13 SQ
--- NOTE | 2019-10-08 10:41 | RAD ---
PQRS Compliance Statement: One or more of the following individualized dose reduction techniques were utilized for this examination: 1. Automated exposure control 2. Adjustment of the mA and/or kV according to patient size 3. Use of iterative reconstruction technique CT head without contrast 10/08/2019 10:30 AM INDICATION: Memory problems COMPARISON: MRI brain 06/18/2017 TECHNIQUE: Multiple axial CT images of the head were obtained from skull base through the vertex without intravenous contrast. FINDINGS: Head: Ventricles, sulci and basal cisterns are prominent compatible with mild generalized cerebral volume loss. There is a remote lacunar infarct involving the left putamen extending to the browne radiata. Low-attenuation in the periventricular white matter is suggestive of chronic small vessel ischemic changes, stable. There is no hydrocephalus. Jorge-white matter differentiation is normal. There is no acute intracranial hemorrhage. There is no mass, mass effect or midline shift. Posterior fossa is normal in appearance. Visualized portions of the orbits are normal with exception of bilateral lens replacement. Paranasal sinuses are well aerated. Mastoid air cells are well aerated. Lucent lesion in the left frontal calvaria could represent an osseous hemangioma measuring 12 mm. IMPRESSION: No acute intracranial hemorrhage. Mild generalized cerebral volume loss. 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 Low-attenuation in the periventricular white matter is suggestive of chronic small vessel ischemic changes. Electronically signed by: Maricel Ojeda MD (10/08/2019 10:38 AM) [facility]
== END | disposition home or self-care (01) ==
LOC: CT 13:53
PROVIDERS: ATTEND Internal Medicine
DX: R41.3 Other amnesia (principal)
CPT/HCPCS: 70450